=== PATIENT | male | born 1950 | race Caucasian/White ===

== ENCOUNTER 2019-05-22 | Day surgery (SDC) | payer OTHER, SELFPAY | END 2019-05-22 23:00 | disposition home or self-care (01) | LOC: GILAB 12-31 13:27 | PROVIDERS: Family Provider Internal Medicine; Visit Provider Surgery | DX: Z53.9 Procedure and treatment not carried out, unspecified reason (principal) | CPT/HCPCS: J2704; J7030 ==

== ENCOUNTER 2021-05-14 15:08 | Inpatient (IN) | payer OTHER, MEDICARE, SELFPAY ==
[2021-05-14] VITALS (7 sets, daily range): BP systolic 137–154; BP diastolic 71–91; PULSE 70–95; RESP 16–39; TEMP 36.7–37.3; O2SAT 86–96
--- NOTE | 2021-05-14 16:04 | ECG_ITS ---
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 Measurements Intervals [place] Rate: 81 P: 43 MN: 167 QRS: 66 QRSD: 79 T: 78 QT: 336 QTc: 391 Interpretive Statements SINUS RHYTHM ST DEVIATION AND MODERATE T-WAVE ABNORMALITY, CONSIDER ANTEROLATERAL ISCHEMIA [-0.1+ mV T-WAVE IN V3-V6] No previous ECG available for comparison Electronically Signed On 05-14-2021 21:56:35 STENCILER by Zack Hodges M.D. [email or web address].[employer]/store/NU/[id number] f
--- NOTE | 2021-05-14 16:05 | XRR_ITS ---
PROCEDURE INFORMATION: Exam: XR Chest Exam date and time: 05/14/2021 4:05 PM Age: 71 years old Clinical indication: Cough and dyspnea and shortness of breath; Patient HX: SOB, low o2; Additional info: Dyspnea/cough TECHNIQUE: Imaging protocol: XR of the chest. Views: 1 view. COMPARISON: MRI Shoulder w/o LEFT* [id number] 01/18/2018 4:23 PM FINDINGS: Lungs: Patchy ground-glass opacities in both lungs. No focal consolidation. Pleural spaces: Unremarkable. No pleural effusion. No pneumothorax. Heart/Mediastinum: Unremarkable. No cardiomegaly. Bones/joints: Unremarkable. XR/XR chest 1V portable [id number] IMPRESSION: 1. Patchy ground-glass opacities, consistent with multilobar pneumonia.
--- NOTE | 2021-05-14 16:14 | ED_ITS ---
HPI - COVID General: Chief Complaint: COVID symptoms Stated Complaint: SOB LOW O2 Time Seen by Provider: 05/14/21 16:03 Triage information: Has fever, cough or shortness of breath . Exposure to COVID + person last 14 days History of Present Illness: HPI Narrative: 71-year-old male presents to the ER via private vehicle complaining of shortness of breath. He was tested earlier this week at the [facility] and was called today and told he was positive he is having increasing shortness of breath patient initially presents on room air is sats 85-86% on 4 L by nasal cannula he is 87 to 88%. While is examining I switch him over to a nonrebreather his sats improved into the upper 90s to 100% on 15 L by nasal cannula on the nonrebreather. He has had anosmia myalgias low-grade fever nonproductive cough he denies any diarrhea. He is not previously been vaccinated. MD complaint: known COVID positive Prior testing date: 05/11/21 COVID 19 common symptoms: positive fever(s), chills, cough, non-productive cough, dyspnea, fatigue, body aches, headache(s), loss of sense of smell and/or taste, throat pain, nasal congestion, nausea, vomiting, diarrhea and chest tightness; negative productive cough COVID 19 other sytmptoms: positive requiring oxygen and respiratory distress Onset (ago): day(s) (8-9) Severity: moderate Treatment prior to arrival: none COVID Results: No Data to Display Review of Systems Const: Reports: fever(s), chills, body aches and fatigue ENMT: Reports: throat pain and nasal congestion Resp: Reports: dyspnea and non-productive cough; Denies: productive cough GI: Reports: nausea, vomiting and diarrhea Neuro: Reports: headache(s) PFSH ED PFSH: Medical History Anemia Arthritis Hemorrhoids History of ankle fracture HTN (hypertension) Hyperlipemia Surgical History Hx of appendectomy Social History Smoking and tobacco status: former smoker Quit status (tobacco): has quit using tobacco Alcohol intake: never Physical Exam Const: ORIENTATION/CONSCIOUSNESS: Yes awake, Yes oriented to person, Yes oriented to place and Yes oriented to time HENMT: COMMON NORMALS: normocephalic, atraumatic, hearing grossly normal bilaterally, external ears normal, EAC's normal and TM's normal bilaterally HEAD & SCALP: normocephalic and atraumatic EXTERNAL EAR: Yes external ears normal EXTERNAL AUDITORY CANAL: EAC's normal TYMPANIC MEMBRANE: TM's normal bilaterally Resp: AUSCULTATION: crackles, wheezes and diminished lung sounds Cardio: COMMON NORMALS: regular rate, regular rhythm and No murmurs present (Cardio) RATE: regular rate RHYTHM: regular rhythm GI: COMMON NORMALS: Soft to palpation and No hepatosplenomegaly present AUSCULTATION: Yes normoactive bowel sounds PALPATION: Yes Soft to palpation, No Tenderness to palpation present (GI), No Guarding due to palpation present (GI) and Yes No hepatosplenomegaly present Extremity: COMMON NORMALS: normal to inspection, capillary refill normal, no clubbing, cyanosis or edema, no calf tenderness and no pedal edema Neuro: SENSORIUM/ORIENTATION: Yes oriented to person, Yes oriented to place and Yes oriented to time Skin: COMMON NORMALS: no rashes or lesions noted GENERAL SKIN EXAM: no rashes or lesions noted Course Vital Signs: Vital signs: Vital Signs Temperature 99.1 F 05/14/21 15:53 Pulse Rate 70 05/14/21 15:53 Respiratory Rate 24 H 05/14/21 17:55 Blood Pressure 145/77 05/14/21 15:53 Pulse Oximetry 96 05/14/21 17:55 MDM - COVID MDM Narrative: Medical decision making narrative: Covid pneumonia with significant high oxygen deficit. Room air oxygen saturation is 89%. He is requiring heated high flow but is maintaining good sats without. We will go and start him on remdesivir dexamethasone discussed the hospitalist orders written labs EKG and imaging reviewed as found in the chart Lab Data: Labs: Lab Results 05/14/21 05/14/21 05/14/21 16:00 16:00 16:00 WBC 10.2 10^3/uL H 10 ^3/uL (4.0-10.0) RBC 5.15 10^6/uL 10^6 /uL (4.1-5.3) Hgb 15.7 g/dL g/dL (11.7-16.6) Hct 47.2 % % (42.0-52.0) MCV 91.7 fl fl (80-94) MCH 30.5 pg pg (28.0-34.0) MCHC 33.3 g/dL g/dL (30.0-36.0) RDW 13.5 % % (12.1-15.1) Plt Count 204 10^3/cmm 10^3 /cmm (130-400) MPV 10.3 fL fL (7.4-10.4) Neut % (Auto) 87.7 % % Lymph % (Auto) 9.4 % % [place] % (Auto) 2.1 % % Eos % (Auto) 0.0 % % Baso % (Auto) 0.2 % % Neut # (Auto) 8.91 10^3/uL H 10 ^3/uL (1.8-7.7) Lymph # (Auto) 1.0 10^3/uL 10^3/ uL (0.8-4.8) [place] # (Auto) 0.2 10^3/uL 10^3/ uL (0.2-0.9) Eos # (Auto) 0.0 10^3/uL 10^3/ uL (0.0-0.8) Baso # (Auto) 0.0 10^3/uL 10^3/ uL (0.0-0.1) Nucleated RBC % (a uto) 0 % % Nucleated RBCs # 0.0 /100WBC /100W BC D-Dimer Specimen Type Sample Site ABG pH ABG pCO2 ABG pO2 ABG HCO3 ABG O2 Saturation ABG Base Excess Chris Test A-a O2 Gradient Hematocrit Hgb O2 Saturation Carboxyhemoglobin Methemoglobin Total Hemoglobin Ionized Calcium O2 Delivery Device FiO2 Lathe Operator Contact Lens ID Sodium 131 mmol/L L mmol /L (136-145) Potassium 4.1 mmol/L mmol/L (3.5-5.1) Chloride 95 mmol/L L mmol/ L (98-107) Carbon Dioxide 21 mmol/L L mmol/ L (22-29) Anion Gap 19.1 H (5-19) BUN 17 mg/dL mg/dL (8-23) Creatinine 1.1 mg/dL mg/dL (0.7-1.2) GFR Calculation Not Reportable Glucose 103 mg/dL mg/dL (65-115) Calculated Osmolal ity 274 mOsm/kg L mOs m/kg (285-295) Lactic Acid 1.7 mmol/L mmol/L (0.5-2.2) Calcium 8.1 mg/dL L mg/dL (8.5-10.5) Total Bilirubin 0.3 mg/dL mg/dL (0.15-1.2) AST 38 U/L U/L (0-40) ALT 17 U/L U/L (0-41) Alkaline Phosphata se 115 IU/L IU/L (40-130) Troponin T Baselin e C-Reactive Protein 366.2 mg/L H mg/L (0.0-4.9) Total Protein 7.7 g/dL g/dL (6.6-8.7) Albumin 3.4 g/dL L g/dL (3.5-5.2) Globulin 4.3 g/dL g/dL (1.3-4.6) 05/14/21 05/14/21 05/14/21 16:00 16:00 16:30 WBC RBC Hgb Hct MCV MCH MCHC RDW Plt Count MPV Neut % (Auto) Lymph % (Auto) [place] % (Auto) Eos % (Auto) Baso % (Auto) Neut # (Auto) Lymph # (Auto) [place] # (Auto) Eos # (Auto) Baso # (Auto) Nucleated RBC % (a uto) Nucleated RBCs # D-Dimer 1.24 ug/mIFEU H u g/mIFEU (0-0.59) Specimen Type Arterial Sample Site Radial, left ABG pH 7.44 (7.35-7.45) ABG pCO2 32.9 mmHg L mmHg (35-45) ABG pO2 70.3 mmHg L mmHg (80.0-100.0) ABG HCO3 22.2 mmol/L mmol/ L (22-26) ABG O2 Saturation 94.9 ABG Base Excess -1.2 mmol/L mmol/ L (-2.0-2.0) Chris Test Pos A-a O2 Gradient 77.2 mmHg H mmHg (5-10) Hematocrit 46.4 % % (42-52) Hgb O2 Saturation 93.4 % L % (95-100) Carboxyhemoglobin 0.4 %THgb %THgb (0.4-20.1) Methemoglobin 1.2 % % (0.4-1.5) Total Hemoglobin 15.2 g/dL g/dL (14-18) Ionized Calcium 1.1 mmol/L mmol/L (1.1-1.4) O2 Delivery Device Nrb FiO2 100.0 % % Lathe Operator Contact Lens ID Amh Sodium 132.0 mmol/L mmol /L (131-143) Potassium 4.2 mmol/L mmol/L (3.5-5.0) Chloride Carbon Dioxide Anion Gap BUN Creatinine GFR Calculation Glucose 104.0 mg/dL mg/dL (70-115) Calculated Osmolal ity Lactic Acid Calcium Total Bilirubin AST ALT Alkaline Phosphata se Troponin T Baselin e 15 ng/L ng/L (0-15) C-Reactive Protein Total Protein Albumin Globulin COVID Results: No Data to Display Discharge Plan Discharge Patient Disposition: Admitted As Inpatient Clinical Impression: COVID-19, Acute respiratory failure with hypoxia Condition: Stable Coding Level of Care Code ED Airport Operations Officer for Chg Fwd Exam Detailed
[2021-05-14 16:32] LABS: Basophils % 0.2 %; Hematocrit 47.2 % (42.0-52.0); Hemoglobin 15.7 g/dL (11.7-16.6); Lymphocytes % 9.4 %; Mean Corpuscular HGB Conc 33.3 g/dL (30.0-36.0); Mean Corpuscular Hemoglobin 30.5 pg (28.0-34.0); Mean Corpuscular Volume 91.7 fl (80-94); Mean Platelet Volume 10.3 fL (7.4-10.4); Monocytes # 0.2 10^3/uL (0.2-0.9); Monocytes % 2.1 %; Neutrophils # 8.91 10^3/uL (1.8-7.7); Neutrophils % 87.7 %; Nucleated Red Blood Cells % 0 %; Platelet Count 204 10^3/cmm (130-400); Red Blood Count 5.15 10^6/uL (4.1-5.3); Red Cell Distribution Width 13.5 % (12.1-15.1); White Blood Count 10.2 10^3/uL (4.0-10.0)
--- NOTE | 2021-05-14 16:40 | PC.PHAR ---
pt states he takes no rx medications-pts [place] med list had no listed medications-pt states he has been taking advil and vit b12 gummies
[2021-05-14 16:42] LABS: ABG PCO2 32.9 mmHg (35-45); ABG PH Result 7.44 (7.35-7.45); Alveolar-Arterial Oxygen Gradi 77.2 mmHg (5-10); Arterial Blood Gas Hematocrit 46.4 % (42-52); Base Excess ABG -1.2 mmol/L (-2.0-2.0); Blood Gas Allen Test Pos; Blood Gas Operator Identificat AMH; Blood Gas Sample Site Radial, left; Blood Gas Sample Type Arterial; Carboxyhemoglobin 0.4 %THgb (0.4-20.1); HCO3 ABG 22.2 mmol/L (22-26); HGB O2 Sat 93.4 % (95-100); Ionized Calcium Level - ABG 1.1 mmol/L (1.1-1.4); Methemoglobin 1.2 % (0.4-1.5); Oxygen Device NRB; Oxygen Saturation ABG 94.9; PO2 ABG 70.3 mmHg (80.0-100.0); Potassium Level - ABG 4.2 mmol/L (3.5-5.0); Total Hemoglobin 15.2 g/dL (14-18)
[2021-05-14 16:51] LABS: Troponin(5th) Baseline 15 ng/L (0-15)
[2021-05-14 16:53] LABS: Alanine Aminotransferase 17 U/L (0-41); Albumin Level 3.4 g/dL (3.5-5.2); Alkaline Phosphatase 115 IU/L (40-130); Anion Gap 19.1 (5-19); Aspartate Amino Transferase 38 U/L (0-40); Blood Urea Nitrogen 17 mg/dL (8-23); Calcium 8.1 mg/dL (8.5-10.5); Carbon Dioxide 21 mmol/L (22-29); Chloride 95 mmol/L (98-107); Globulin 4.3 g/dL (1.3-4.6); Glucose 103 mg/dL (65-115); Osmolality Calculated 274 mOsm/kg (285-295); Potassium 4.1 mmol/L (3.5-5.1); Sodium 131 mmol/L (136-145); Total Bilirubin 0.3 mg/dL (0.15-1.2); Total Protein 7.7 g/dL (6.6-8.7)
[2021-05-14 16:54] LABS: Lactic Sepsis W/Reflex 1.7 mmol/L (0.5-2.2)
[2021-05-14 17:08] LABS: C Reactive Protein 366.2 mg/L (0.0-4.9)
[2021-05-14 17:16] LABS: D Dimer 1.24 ug/mIFEU (0-0.59)
--- NOTE | 2021-05-14 17:21 | PM.HP ---
Providers/Chief Complaint Primary Care Provider: [facility] Chief Complaint: SOB LOW O2 History of Present Illness Bennie Chandra is a 71 year old male who presented to the hospital for worsening shortness of breath. Patient is stating that his symptom started about 10 days ago. Patient is stating that he was experiencing shortness of breath, fatigue, lethargy and fever at home. He did not experience chest pain or diarrhea. He went to [facility] where Covid test was done it turned back positive today. In the ER he was diagnosed with acute hypoxia he was quickly transitioned to heated high flow at the time my evaluation he was saturating 94% on 35 L, 45%. He was happy to see business objects developer. He did receive remdesivir and steroids in the ER. Chest x-ray consistent with multilobar pneumonia Review of Systems Const: Reports: fever(s), chills, body aches and fatigue Eyes: Denies: change in vision ENMT: Denies: throat pain Card: Denies: chest pain Resp: Reports: dyspnea and non-productive cough GI: Denies: abdominal pain : Denies: flank pain Musc: Denies: neck pain Skin/Breast: Denies: rash Neuro: Denies: headache(s) Psych: Reports: anxiety Endo: Denies: polyuria Navid/Lymph: Denies: easy bruising All/Imm: Denies: urticaria Medications/Allergies Home Medications Medication Instructions Recorded Confirmed Last Taken Type Vitamin B-12 Gummies 1 tab PO DAILY 05/14/21 05/14/21 Unknown History ibuprofen [Advil] 600 mg PO Q6H PRN 05/14/21 05/14/21 05/14/21 History Allergies Allergy/AdvReac Type Severity Reaction Status Date / Time No Known Allergies Allergy Verified 05/14/21 16:38 PFSH Acute PFSH: Medical History Anemia Arthritis Hemorrhoids History of ankle fracture HTN (hypertension) Hyperlipemia Surgical History Hx of appendectomy Family History (Updated 05/14/21 @ 20:04 by Coby Spears MD) Other Diabetes Social History Smoking and tobacco status: former smoker Quit status (tobacco): has quit using tobacco Alcohol intake: never Vitals/I&O/Wt Last Vital Signs Temp 99.1 F 05/14/21 15:53 Pulse 70 05/14/21 15:53 Resp 22 H 05/14/21 16:42 BP 145/77 05/14/21 15:53 Pulse Ox 95 05/14/21 16:42 Weight last 48 hrs Weight 90.718 kg Physical Exam Narrative: EXAM NARRATIVE: Patient was resting comfortably Supine position 35 L, 45 to 50% FiO2 heated high flow No audible stridor or wheezing Sinus rhythm Abdomen soft Clinical looks dehydrated No signs of edema EOMI, PERRLA Nonfocal neuro exam No use of respiratory sensory muscles Dry cough Data : 05/14/21 16:00 05/14/21 16:00 A&P Assessment and plan (1) COVID-19: Status: Acute Additional A&P Information Acute hypoxia COVID-19 Heated high flow 35 L, 45 to 50% Start baricitinib, dB and Decadron Check CRP procalcitonin Will obtain CT chest to rule out PE before his transfer upstairs Admit to [facility] Regular diet Full code DVT prophylaxis: Lovenox CRP 366, patient does not have any significant comorbid conditions however he is 71 years of age now for 10 days requiring 35 L 45% FiO2, I am anticipating he will stay more than 2 to 3 days in the hospital, he is not vaccinated Attestations Medical Necessity Statement*: More than 2 midnights anticipated Time Spent in Patient Care: Greater than 35 minutes Coding Level of Care Code Acute Shrimp Peeler for Chg Fwd Diagnoses COVID-19 U07.1
[2021-05-14] MEDS: dexamethasone 10 mg/mL INJ 6 MG IVP (17:51)
[2021-05-14] MEDS: remdesivir 200 MG in sodium chloride 0.9% (100 ml) 60 ML 100 MG IV (17:51)
[2021-05-14 18:27] LABS: Troponin 5 2HR 15.14 ng/L (0-15); Troponin 5 2HR Delta 0.14 ABS# (0-10)
--- NOTE | 2021-05-14 20:04 | CTR_ITS ---
PROCEDURE INFORMATION: Exam: CTA Chest With Contrast Exam date and time: 05/14/2021 8:04 PM Age: 71 years old Clinical indication: Shortness of breath; Patient HX: Covid +, hypoxia; Additional info: Hypoxia covid TECHNIQUE: Imaging protocol: Computed tomographic angiography of the chest with contrast. 3D rendering (Not supervised by radiologist): MIP and/or 3D reconstructed images were created by the technologist. Radiation optimization: All CT scans at this facility use at least one of these dose optimization techniques: automated exposure control; mA and/or kV adjustment per patient size (includes targeted exams where dose is matched to clinical indication); or iterative reconstruction. Contrast material: OMNI 350; Contrast volume: 72 ml; Contrast route: INTRAVENOUS (IV); COMPARISON: CR XR chest 1V portable [id number] 05/14/2021 4:37 PM RADIATION DOSE METRICS: Total DLP (mGy-cm): 528.25 FINDINGS: Pulmonary arteries: No definite filling defects identified within the pulmonary arteries. Evaluation is significantly limited by breathing motion artifact which obscures multiple pulmonary artery segments. Aorta: Unremarkable. No aortic aneurysm. No aortic dissection. Lungs: Multilobar peripheral patchy ground-glass opacities in both lungs. Pleural spaces: Unremarkable. No pneumothorax. No pleural effusion. Heart: Unremarkable. No cardiomegaly. No pericardial effusion. Lymph nodes: Prominent mediastinal and hilar lymph nodes are most likely reactive. Calcified left hilar lymph nodes. Liver: Calcified granulomas in the liver. Gallbladder and bile ducts: Small calcified stones in the gallbladder. No visible wall thickening. Spleen: Calcified granulomas in the spleen. Bones/joints: Unremarkable. No acute fracture. Soft tissues: Unremarkable. CT/CT angio chest PE protcl [id number] IMPRESSION: 1. No definite evidence for pulmonary embolus. Evaluation is limited by significant breathing motion artifact. 2. Multilobar ground-glass opacities, consistent with COVID-19 pneumonia.
[2021-05-14] MEDS: iohexol 350 mg/mL 100 mL Btl IV (20:23)
--- NOTE | 2021-05-14 22:04 | ECG_ITS ---
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 Measurements Intervals [place] Rate: 80 P: 35 [place]: 174 QRS: 41 QRSD: 88 T: 31 QT: 332 QTc: 384 Interpretive Statements SINUS RHYTHM ST DEVIATION AND MODERATE T-WAVE ABNORMALITY, CONSIDER ANTEROLATERAL ISCHEMIA [-0.1+ mV T WAVE IN V3-V6] Compared to ECG 05/14/2021 17:11:59 No significant changes Electronically Signed On 05-15-2021 10:55:16 APPRENTICESHIP REPRESENTATIVE by Zack Hodges M.D. [email or web address].[employer]/store/OM/[id number]/[id number]
[2021-05-14] MEDS: enoxaparin 40 mg/0.4 mL Syringe SUBCUT (22:23)
[2021-05-14 22:38] LABS: Troponin 5 6HR 12.37 ng/L (0-15); Troponin 5 6HR Delta -2.63 ng/L (0-12)
--- NOTE | 2021-05-14 22:59 | PC.RESP ---
pt refused hhf despite education on o2 device, insist on wearing NRB mask
[2021-05-15] VITALS (12 sets, daily range): BP systolic 115–149; BP diastolic 69–83; PULSE 54–81; RESP 16–25; TEMP 36.4–37.3; O2SAT 81–95
--- NOTE | 2021-05-15 03:02 | PC.RESP ---
pt refusing to wear NRB states flow is to high. educated pt on o2 need and use, resistant to learning. Placed pt on 11 lm highflow nc patient says he will try it, but if he does not like it he will take it off and refuse to wear o2. RN notified
--- NOTE | 2021-05-15 03:14 | PC.NURSE ---
notified phys of pt noncompliance with recommended oxygen supplementation by respiratory therapies. Refusing HHF and non rebreather. States he will wear regular highflow for now but will take it off if uncomfortable regardless of his oxygen saturation.
[2021-05-15 05:04] LABS: ABG PCO2 34.6 mmHg (35-45); ABG PH Result 7.44 (7.35-7.45); Arterial Blood Gas Hematocrit 47.1 % (42-52); Base Excess ABG 0.1 mmol/L (-2.0-2.0); Blood Gas Allen Test Pos; Blood Gas Operator Identificat JB; Blood Gas Sample Site Radial, right; Blood Gas Sample Type Arterial; HCO3 ABG 23.7 mmol/L (22-26); Oxygen Device NC; PO2 ABG 74.8 mmHg (80.0-100.0)
[2021-05-15 06:30] LABS: Basophils % 0.1 %; Hematocrit 42.5 % (42.0-52.0); Lymphocytes # 0.9 10^3/uL (0.8-4.8); Mean Corpuscular HGB Conc 32.9 g/dL (30.0-36.0); Mean Corpuscular Hemoglobin 29.9 pg (28.0-34.0); Mean Corpuscular Volume 90.6 fl (80-94); Mean Platelet Volume 10.1 fL (7.4-10.4); Monocytes # 0.2 10^3/uL (0.2-0.9); Monocytes % 2.3 %; Neutrophils # 7.02 10^3/uL (1.8-7.7); Nucleated Red Blood Cells % 0 %; Platelet Count 191 10^3/cmm (130-400); Red Blood Count 4.69 10^6/uL (4.1-5.3); Red Cell Distribution Width 13.5 % (12.1-15.1); White Blood Count 8.2 10^3/uL (4.0-10.0)
[2021-05-15 06:38] LABS: D Dimer 1.14 ug/mIFEU (0-0.59)
[2021-05-15 06:48] LABS: Anion Gap 17.8 (5-19); Blood Urea Nitrogen 18 mg/dL (8-23); C Reactive Protein 331.1 mg/L (0.0-4.9); Carbon Dioxide 22 mmol/L (22-29); Chloride 97 mmol/L (98-107); Creatinine Clr Calc Pharmacy 95.9378; Glucose 116 mg/dL (65-115); Osmolality Calculated 277 mOsm/kg (285-295); Potassium 4.8 mmol/L (3.5-5.1); Sodium 132 mmol/L (136-145)
[2021-05-15 07:03] LABS: Lactate Dehydrogenase 464 U/L (135-225)
--- NOTE | 2021-05-15 09:44 | P.PN_ITS ---
Subjective Subjective: Interval history: This morning patient was saturating 90% on 11 L high flow nasal cannula He was fatigued and lethargic no overnight events He cannot prone himself He is adamant that he wants to leave the hospital I told him it has to be AGAINST MEDICAL ADVICE and then he stated that he has oxygen tanks in his shop and would like to go home I did take my time to explain him why we are keeping him in the hospital and why medications are important at this point and he could get worse if not treated adequately Vitals/I&O/Wt Last Vital Signs Temp 98.6 F 05/15/21 07:30 Pulse 75 05/15/21 08:53 Resp 16 05/15/21 08:53 BP 126/72 05/15/21 07:30 Pulse Ox 90 05/15/21 08:53 05/14/21 05/15/21 05/15/21 22:59 06:59 14:59 Intake Total 60 / 60 480 / 540 Balance 60 / 60 480 / 540 Weight last 48 hrs Weight 90.718 kg Physical Exam Narrative: EXAM NARRATIVE: Patient was sleeping right lateral position 11 L nasal cannula Rhonchi Abdomen soft Clinically euvolemic Breakfast at the bedside No use of respiratory sensory muscles No conversational dyspnea No signs of edema EOMI, PERRLA Awake and alert Data : 05/15/21 06:15 05/15/21 06:15 A&P Assessment and plan (1) Hypoxia: Status: Acute (2) COVID-19: Status: Acute Additional A&P Information Acute hypoxia COVID-19 Currently on 11 L high flow nasal cannula PaO2 74 Continue IV steroids, Decadron and baricitinib Patient is not ready to be discharged Did discuss with him the importance of getting treatment in the hospital for COVID-19 infection and further monitoring to see how much oxygen he would require at the time of discharge, he might change his decision and stay over the weekend Discharge planners were notified as well I will feel comfortable sending him home if he is O2 saturation is 90 to 92% on 4- 5 L Full code Regular diet Attestations Medical Necessity Statement*: Continue medical management Time Spent in Patient Care: 16 - 35 minutes Coding Level of Care Code Acute Dance Hall Hostess for Brock Barrera Diagnoses Hypoxia R09.02 COVID-19 U07.1
[2021-05-15] MEDS: acetaminophen 325 mg Tablet 650 MG PO ×2 (10:45→17:22)
[2021-05-15] MEDS: dexamethasone 10 mg/mL INJ 6 MG IVP (13:51)
[2021-05-15] MEDS: remdesivir 100 MG in sodium chloride 0.9% (100 ml) 100 ML IV (17:24)
[2021-05-15] MEDS: enoxaparin 40 mg/0.4 mL Syringe SUBCUT (21:44)
[2021-05-16] VITALS (18 sets, daily range): BP systolic 105–132; BP diastolic 64–76; PULSE 59–91; RESP 16–28; TEMP 36.4–37.3; O2SAT 82–91
[2021-05-16] MEDS: ipratropium-albuterol 3 mL Neb INHALATION ×2 (04:00→08:45)
[2021-05-16 04:22] LABS: ABG PCO2 37.9 mmHg (35-45); ABG PH Result 7.44 (7.35-7.45); Base Excess ABG 1.4 mmol/L (-2.0-2.0); Blood Gas Allen Test Pos; Blood Gas Operator Identificat glc; Blood Gas Sample Site Radial, left; Blood Gas Sample Type Arterial; HCO3 ABG 25.5 mmol/L (22-26); Oxygen Device NC; PO2 ABG 64.2 mmHg (80.0-100.0)
[2021-05-16] MEDS: acetaminophen 325 mg Tablet 650 MG PO ×3 (05:35→19:05)
[2021-05-16 06:48] LABS: Basophils % 0.1 %; Hematocrit 47.2 % (42.0-52.0); Hemoglobin 15.6 g/dL (11.7-16.6); Lymphocytes # 1.1 10^3/uL (0.8-4.8); Lymphocytes % 8.5 %; Mean Corpuscular HGB Conc 33.1 g/dL (30.0-36.0); Mean Corpuscular Volume 93.7 fl (80-94); Mean Platelet Volume 10.5 fL (7.4-10.4); Monocytes # 0.4 10^3/uL (0.2-0.9); Monocytes % 2.9 %; Neutrophils # 10.96 10^3/uL (1.8-7.7); Neutrophils % 87.5 %; Nucleated Red Blood Cells % 0 %; Platelet Count 235 10^3/cmm (130-400); Red Blood Count 5.04 10^6/uL (4.1-5.3); Red Cell Distribution Width 13.6 % (12.1-15.1); White Blood Count 12.5 10^3/uL (4.0-10.0)
[2021-05-16 07:31] LABS: Blood Urea Nitrogen 23 mg/dL (8-23); Calcium 8.3 mg/dL (8.5-10.5); Carbon Dioxide 20 mmol/L (22-29); Chloride 97 mmol/L (98-107); Creatinine Clr Calc Pharmacy 95.9378; Glucose 149 mg/dL (65-115); Magnesium 2.3 mg/dL (1.7-2.3); Osmolality Calculated 284 mOsm/kg (285-295); Sodium 134 mmol/L (136-145)
[2021-05-16 07:49] LABS: Anion Gap 21.8 (5-19); Lactate Dehydrogenase 596 U/L (135-225); Potassium 4.8 mmol/L (3.5-5.1)
[2021-05-16] MEDS: sennosides-docusate Tablet 1 TAB PO (09:24)
--- NOTE | 2021-05-16 09:31 | PC.NURSE ---
O2 Started my assessment on pt. Pt was sat )O2 at 84 on High flow. When I explained to him that resp. therapy would need to turn it up , He wanted me not to tell. I explained to him that it was important that he get his oxygen up higher. He said he had them to turn it down. I also explained to him that it was important to sit up in chair and not be in bed all day. Pt is refusing guidance.
--- NOTE | 2021-05-16 11:26 | P.PN_ITS ---
Subjective Subjective: Interval history: Patient overnight required heated high flow currently on 80% 35 L which have increased to 40 L this morning he was saturating 90% He is not able to sleep on himself because of back pain No conversational dyspnea He still adamant that he wants to leave the hospital over the weekend , After speaking with his yesterday he decided to stay Vitals/I&O/Wt Last Vital Signs Temp 97.6 F 05/16/21 11:25 Pulse 82 05/16/21 11:25 Resp 18 05/16/21 11:25 BP 122/76 05/16/21 11:25 Pulse Ox 89 L 05/16/21 11:25 05/15/21 05/16/21 05/16/21 22:59 06:59 14:59 Intake Total 460 / 460 500 / 960 240 / 240 Balance 460 / 460 500 / 960 240 / 240 Weight last 48 hrs Weight 90.718 kg Physical Exam Narrative: EXAM NARRATIVE: Patient is in supine position Fatigue hematologic Dehydrated Heated high flow 80% 40 L No acute respiratory distress No conversational dyspnea Patient experiencing dry cough Soft abdomen Nonfocal neuro exam No audible stridor or wheezing Data : 05/16/21 06:10 05/16/21 06:10 A&P Assessment and plan (1) Hypoxia: Status: Acute (2) COVID-19: Status: Acute Additional A&P Information COVID-19 Hypoxia is worsening Currently on 80% FiO2 heated high flow [address] chest ruled out pulmonary embolism admission Currently on remdesivir, steroids and baricitinib Full code Patient is endorsing loss of appetite No active diarrhea Afebrile Anxious to leave the hospital DVT prophylaxis: Lovenox Patient is unable to perform himself because of his back pain, I will add empirical antibiotic coverage, monitor procalcitonin, LDH Attestations Medical Necessity Statement*: Patient will need at least need 4-5 days treatment Time Spent in Patient Care: 16 - 35 minutes Coding Level of Care Code Acute Industrial Chemistry Teacher for Brock Barrera Diagnoses Hypoxia R09.02 COVID-19 U07.1
[2021-05-16] MEDS: dexamethasone 10 mg/mL INJ 6 MG IVP (12:45)
--- NOTE | 2021-05-16 14:37 | ECG_ITS ---
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 Measurements Intervals [place] Rate: 70 P: 35 [place]: 164 QRS: 39 QRSD: 86 T: 33 QT: 376 QTc: 407 Interpretive Statements SINUS RHYTHM ST DEVIATION AND MODERATE T-WAVE ABNORMALITY, CONSIDER ANTERIOR ISCHEMIA [-0.1+ mV T WAVE IN V3/V4] Compared to ECG 05/14/2021 22:46:18 No significant changes Electronically Signed On 05-17-2021 20:15:27 MASON APPRENTICE by Arthur Catalan M.D. [email or web address].[employer]/store/OM/[id number]/[id number]
[2021-05-16] MEDS: ketorolac 30 mg/mL INJ IM ×2 (15:21→21:25)
[2021-05-16 16:35] LABS: Troponin T (5th) Once 9 ng/L (0-15)
[2021-05-16] MEDS: remdesivir 100 MG in sodium chloride 0.9% (100 ml) 100 ML IV (17:56)
[2021-05-16] MEDS: enoxaparin 40 mg/0.4 mL Syringe SUBCUT (21:24)
[2021-05-17] VITALS (12 sets, daily range): BP systolic 123–147; BP diastolic 66–86; PULSE 51–90; RESP 16–24; TEMP 36.4–36.8; O2SAT 58–98
[2021-05-17] MEDS: acetaminophen 325 mg Tablet 650 MG PO ×4 (00:54→22:04)
[2021-05-17 04:56] LABS: ABG PCO2 37.8 mmHg (35-45); ABG PH Result 7.44 (7.35-7.45); Arterial Blood Gas Hematocrit 43.9 % (42-52); Base Excess ABG 1.6 mmol/L (-2.0-2.0); Blood Gas Allen Test Pos; Blood Gas Sample Site Radial, left; Blood Gas Sample Type Arterial; HCO3 ABG 25.7 mmol/L (22-26); Oxygen Device NC; PO2 ABG 55.4 mmHg (80.0-100.0)
[2021-05-17] MEDS: levoFLOXacin 750 mg Tablet PO (05:48)
[2021-05-17 06:07] LABS: Anion Gap 15.8 (5-19); Blood Urea Nitrogen 34 mg/dL (8-23); C Reactive Protein 95.7 mg/L (0.0-4.9); Carbon Dioxide 24 mmol/L (22-29); Chloride 98 mmol/L (98-107); Glucose 109 mg/dL (65-115); Osmolality Calculated 284 mOsm/kg (285-295); Potassium 4.8 mmol/L (3.5-5.1); Sodium 133 mmol/L (136-145)
[2021-05-17 06:13] LABS: Procalcitonin 0.13 ng/mL (0-0.5)
--- NOTE | 2021-05-17 07:27 | XRR_ITS ---
PROCEDURE INFORMATION: Exam: XR Chest Exam date and time: 05/17/2021 7:27 AM Age: 71 years old Clinical indication: Shortness of breath; Additional info: Covid hypoxia TECHNIQUE: Imaging protocol: XR of the chest. Views: 1 view. COMPARISON: CR XR chest 1V portable [id number] 05/14/2021 4:37 PM FINDINGS: Lungs: There are extensive bilateral pulmonary infiltrates which have worsened since previous study. Pleural spaces: Unremarkable. No pleural effusion. No pneumothorax. Heart/Mediastinum: Unremarkable. No cardiomegaly. Bones/joints: Unremarkable. XR/XR chest 1V portable [id number] IMPRESSION: Worsening bilateral pulmonary infiltrates consistent with viral pneumonia.
[2021-05-17] MEDS: zinc gluconate 50 mg Tablet PO (09:05)
[2021-05-17] MEDS: ascorbic acid 500 mg Tablet PO ×2 (09:05→17:42)
[2021-05-17] MEDS: sennosides-docusate Tablet 1 TAB PO (09:05)
--- NOTE | 2021-05-17 09:31 | PC.SOCIAL ---
IMM update IMM updated with patient. Verbalized an understanding. Initialled, dated, timed, and placed in chart.
--- NOTE | 2021-05-17 11:13 | P.PN_ITS ---
Subjective Subjective: Interval history: Currently patient is on 70% FiO2 35 L, PaO2 55, patient is comfortable however he is reluctant to increase the flow above 40%, he states that he cannot tolerate When I saw him he was eating breakfast Manager Contract at the bedside Eating breakfast, had 1 bowel movement, no active chest pain or shortness of breath Yesterday he was complaining of chest pain troponin IX, EKG T wave inversion V2 and V3 no recurrence of chest pain overnight today I will do serial troponin and EKG, most likely hypoxia related T wave changes Respiratory showed worsening bilateral infiltrates Vitals/I&O/Wt Last Vital Signs Temp 97.9 F 05/17/21 04:00 Pulse 51 L 05/17/21 08:41 Resp 16 05/17/21 08:41 BP 144/83 05/17/21 08:41 Pulse Ox 91 05/17/21 08:41 05/16/21 05/17/21 05/17/21 22:59 06:59 14:59 Intake Total 340 / 820 580 / 1400 360 / 360 Balance 340 / 820 580 / 1400 360 / 360 Physical Exam Narrative: EXAM NARRATIVE: Patient was resting comfortably with heated high flow 70% 35 L Eating breakfast No active chest pain or shortness of breath Rhonchi crepitation noted all over his lung on posterior auscultation No abdominal pain Nonfocal neuro exam EOMI, PERRLA Data : 05/16/21 06:10 05/17/21 05:19 A&P Assessment and plan (1) Hypoxia: Status: Acute (2) COVID-19: Status: Acute Additional A&P Information Acute hypoxia COVID-19 Persistent hypoxia Severe ARDS Worsening infiltrate on chest x-ray Clinically patient seems comfortable however his hypoxia is worsening Baricitinib, remdesivir and IV Decadron regimen to be continued Seems to be in good spirits We will do serial troponin and EKG I do believe given versions are related to hypoxia CTA ruled out pulmonary embolism I will continue Levaquin empirical regimen for now Full code Regular diet DVT prophylaxis Lovenox Attestations Medical Necessity Statement*: Continue management Time Spent in Patient Care: 16 - 35 minutes Coding Level of Care Code Acute Licensed Sales Producer for Kayling Fwd Diagnoses Hypoxia R09.02 COVID-19 U07.1
--- NOTE | 2021-05-17 11:24 | ECG_ITS ---
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 Measurements Intervals [place] Rate: 50 P: 25 LA: 195 QRS: 8 QRSD: 84 T: 34 QT: 421 QTc: 386 Interpretive Statements SINUS BRADYCARDIA MODERATE T-WAVE ABNORMALITY, CONSIDER ANTERIOR ISCHEMIA [-0.1+ mV T WAVE IN V3/V4] Compared to ECG 05/16/2021 15:14:45 Sinus rhythm no longer present T-wave abnormality still present Possible ischemia still present Electronically Signed On 05-17-2021 20:21:07 SHOE FITTER by Arthur Catalan M.D. [id number]
[2021-05-17] MEDS: dexamethasone 10 mg/mL INJ 6 MG IVP (12:42)
--- NOTE | 2021-05-17 13:24 | ECG_ITS ---
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 Measurements Intervals [place] Rate: 61 P: [place]: QRS: 29 QRSD: 90 T: 26 QT: 404 QTc: 407 Interpretive Statements Normal sinus rhythm ST DEVIATION AND MODERATE T-WAVE ABNORMALITY, CONSIDER ANTERIOR ISCHEMIA [-0.1+ mV T WAVE IN V3/V4] Compared to ECG 05/17/2021 12:25:09 Sinus bradycardia no longer present T-wave abnormality still present Possible ischemia still present Electronically Signed On 05-17-2021 20:23:09 FARM EQUIPMENT OPERATOR by Arthur Catalan M.D. [id number]
[2021-05-17 13:57] LABS: Troponin(5th) Baseline 7 ng/L (0-15)
--- NOTE | 2021-05-17 17:24 | ECG_ITS ---
[facility] Test Date: 2021-05-17 Pat Name: Bennie Chandra Department: Room: 261 Gender: Male Community Health Advocate: : 1950 Requested By: Coby Spears Order Number: [id number] Stormy MD: Arthur Catalan M.D. Measurements Intervals [place] Rate: 56 P: 24 WI: 155 QRS: 13 QRSD: 83 T: 48 QT: 411 QTc: 400 Interpretive Statements SINUS BRADYCARDIA NONSPECIFIC ST & T-WAVE ABNORMALITY Compared to ECG 05/17/2021 15:24:09 Atrial flutter no longer present Possible ischemia no longer present T-wave abnormality still present Electronically Signed On 05-17-2021 20:24:42 PUMP SERVICER SUPERVISOR by Arthur Catalan M.D. [id number]
[2021-05-17] MEDS: remdesivir 100 MG in sodium chloride 0.9% (100 ml) 100 ML IV (17:42)
[2021-05-17 19:50] LABS: Troponin 5 6HR 6.73 ng/L (0-15)
[2021-05-17 19:51] LABS: Troponin 5 6HR Delta -0.27 ng/L (0-12)
[2021-05-17 21:16] LABS: Glucose Point of Care 200 mg/dL (70-110)
[2021-05-17] MEDS: enoxaparin 40 mg/0.4 mL Syringe SUBCUT (22:04)
[2021-05-18] VITALS (9 sets, daily range): BP systolic 112–162; BP diastolic 61–85; PULSE 51–67; RESP 18–21; TEMP 36.5–36.8; O2SAT 90–94
[2021-05-18 04:00] LABS: ABG PCO2 37.5 mmHg (35-45); ABG PH Result 7.45 (7.35-7.45); Arterial Blood Gas Hematocrit 45.1 % (42-52); Base Excess ABG 1.8 mmol/L (-2.0-2.0); Blood Gas Allen Test Pos; Blood Gas Sample Site Radial, right; Blood Gas Sample Type Arterial; HCO3 ABG 25.8 mmol/L (22-26); Oxygen Device HAG; PO2 ABG 59.1 mmHg (80.0-100.0)
[2021-05-18] MEDS: levoFLOXacin 750 mg Tablet PO (05:02)
[2021-05-18] MEDS: acetaminophen 325 mg Tablet 650 MG PO (05:03)
[2021-05-18 07:21] LABS: Basophils % 0.2 %; Hematocrit 45.9 % (42.0-52.0); Hemoglobin 15.2 g/dL (11.7-16.6); Lymphocytes # 1.3 10^3/uL (0.8-4.8); Lymphocytes % 8.7 %; Mean Corpuscular HGB Conc 33.1 g/dL (30.0-36.0); Mean Corpuscular Hemoglobin 30.2 pg (28.0-34.0); Mean Corpuscular Volume 91.1 fl (80-94); Mean Platelet Volume 9.7 fL (7.4-10.4); Monocytes # 0.9 10^3/uL (0.2-0.9); Monocytes % 6.2 %; Neutrophils # 11.71 10^3/uL (1.8-7.7); Neutrophils % 79.9 %; Nucleated Red Blood Cells % 0 %; Platelet Count 392 10^3/cmm (130-400); Red Blood Count 5.04 10^6/uL (4.1-5.3); Red Cell Distribution Width 13.5 % (12.1-15.1); White Blood Count 14.7 10^3/uL (4.0-10.0)
[2021-05-18 07:32] LABS: D Dimer 1.29 ug/mIFEU (0-0.59)
[2021-05-18 07:42] LABS: Blood Urea Nitrogen 26 mg/dL (8-23); Carbon Dioxide 23 mmol/L (22-29); Chloride 103 mmol/L (98-107); Creatinine Clr Calc Pharmacy 95.9378; Glucose 116 mg/dL (65-115); Osmolality Calculated 288 mOsm/kg (285-295); Sodium 136 mmol/L (136-145)
[2021-05-18 07:43] LABS: Anion Gap 15.3 (5-19); Potassium 5.3 mmol/L (3.5-5.1)
[2021-05-18 07:51] LABS: Procalcitonin 0.06 ng/mL (0-0.5)
[2021-05-18 07:59] LABS: Lactate Dehydrogenase 613 U/L (135-225)
[2021-05-18] MEDS: ascorbic acid 500 mg Tablet PO ×2 (08:32→18:02)
[2021-05-18] MEDS: zinc gluconate 50 mg Tablet PO (08:32)
--- NOTE | 2021-05-18 09:18 | PM.PN ---
Subjective Subjective: Interval history: Bennie reports he feels little bit better today. Less short of breath. Medications: Reviewed: Yes Vitals/I&O/Wt Last Vital Signs Temp 97.7 F 05/18/21 07:35 Pulse 55 L 05/18/21 07:35 Resp 18 05/18/21 07:35 BP 136/77 05/18/21 07:35 Pulse Ox 93 05/18/21 07:35 05/17/21 05/18/21 05/18/21 22:59 06:59 14:59 Intake Total 340 / 940 Output Total 600 / 600 100 / 700 Balance -260 / 340 -100 / 240 Physical Exam Narrative: EXAM NARRATIVE: General exam no distress Neck is supple Cardiovascular regular rhythm Lungs a few dry crackles bilaterally Abdomen soft. No obvious organomegaly Extremities no cyanosis clubbing or edema Data : 05/18/21 06:39 05/18/21 06:39 A&P Assessment and plan (1) Acute respiratory failure with hypoxia: Still requiring 70% FiO2 by high flow oxygen at 35 L This is secondary to COVID-19 pneumonia Check BNP Status: Acute (2) COVID-19: Continue remdesivir Continue dexamethasone Continue baricitinib Pulmonary toilet Incentive spirometry, Acapella Check MRSA PCR Continue Levaquin empirically Cultures negative to date Procalcitonin negative CTA negative for pulmonary embolism Status: Acute Additional A&P Information Mild elevation in potassium. Recheck tomorrow. 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
[2021-05-18 09:21] LABS: NT Pro B Type Natriuretic Pept 469 pg/mL (0-125)
--- NOTE | 2021-05-18 10:41 | PC.CHAP ---
Pastoral Care Encounter/Spiritual Assessment Type of Contact [] Declined mold cooler visit [] Patient/Family/Request visit [] Outpatient visit [] Follow-up visit [] Physician referral [] Code/Alert [x] Routine visit [] Staff referral [] Actively dying [] Patient sleeping [] Family support [] [] Out of room [] Palliative care [] [] Receiving care in room [] Pre-surgical visit [] Trauma [] Long length of stay [] ICU visit [] Other: Relational/Emotional Strength [x] Patient feels connected with others/family/visitors/staff [] Distress [] Loneliness/isolation [] Abandonment Spirituality of Patient [x] Person of Karla [x] Attends Christianity of their Karla [x] Believes in Prayer [x] Reads Bible or Moravian materials [] There are Spiritual issues to be addressed Emergency Medical Technician/Driver Interventions [x] Prayer [x] Active listening [x] Non-anxious presence [x] Spiritual/emotional support [] Crisis/trauma care [] Spiritual counseling [] Bereavement support [] Provided bereavement packet [] Provided Bible/devotional materials [] Provided toy/stuffed animal, coloring book to patient or family member [] Provided Communion [] Anointing/[place] [] Salvation [] Completed spiritual assessment [] Other: Impact on Illness or Injury [] Angry [] Fearful [] Anxious [] Often cries [] Exhaustion [] Unable to work [] Unable to attend shinto [] Unable to walk/stand [] Unable to read [] Unable to drive [] Unable to eat/drink [] Unable to sleep [] Unable to be with family [] Patient intubated [] Other: Summary Time spent with patient 20 min
[2021-05-18] MEDS: dexamethasone 10 mg/mL INJ 6 MG IVP (13:05)
[2021-05-18] MEDS: remdesivir 100 MG in sodium chloride 0.9% (100 ml) 100 ML IV (18:02)
[2021-05-18] MEDS: ondansetron 2 mg/ML SDV 2 mL 4 MG IVP (19:52)
[2021-05-18] MEDS: enoxaparin 40 mg/0.4 mL Syringe SUBCUT (22:54)
[2021-05-19] VITALS (54 sets, daily range): BP systolic 68–158; BP diastolic 49–112; PULSE 54–138; RESP 12–22; TEMP 36.4–37.9; O2SAT 70–97
[2021-05-19 05:01] LABS: Basophils # 0.1 10^3/uL (0.0-0.1); Basophils % 0.5 %; Hematocrit 51.4 % (42.0-52.0); Hemoglobin 16.5 g/dL (11.7-16.6); Lymphocytes # 1.4 10^3/uL (0.8-4.8); Lymphocytes % 7.3 %; Mean Corpuscular HGB Conc 32.1 g/dL (30.0-36.0); Mean Corpuscular Hemoglobin 30.4 pg (28.0-34.0); Mean Corpuscular Volume 94.7 fl (80-94); Mean Platelet Volume 9.8 fL (7.4-10.4); Monocytes # 0.9 10^3/uL (0.2-0.9); Monocytes % 4.7 %; Nucleated Red Blood Cells % 0 %; Platelet Count 419 10^3/cmm (130-400); Red Blood Count 5.43 10^6/uL (4.1-5.3); Red Cell Distribution Width 13.6 % (12.1-15.1); White Blood Count 19.4 10^3/uL (4.0-10.0)
[2021-05-19 05:24] LABS: Alanine Aminotransferase 53 U/L (0-41); Alkaline Phosphatase 142 IU/L (40-130); Aspartate Amino Transferase 51 U/L (0-40); Blood Urea Nitrogen 27 mg/dL (8-23); Carbon Dioxide 24 mmol/L (22-29); Chloride 99 mmol/L (98-107); Globulin 4.2 g/dL (1.3-4.6); Glucose 109 mg/dL (65-115); Magnesium 2.3 mg/dL (1.7-2.3); Osmolality Calculated 286 mOsm/kg (285-295); Sodium 135 mmol/L (136-145); Total Bilirubin 0.4 mg/dL (0.15-1.2); Total Protein 7.2 g/dL (6.6-8.7)
[2021-05-19] MEDS: levoFLOXacin 750 mg Tablet PO (05:42)
[2021-05-19 07:43] LABS: Slide Review Slide Review Perform
[2021-05-19] MEDS: ipratropium-albuterol 3 mL Neb INHALATION ×3 (08:40→20:05)
[2021-05-19] MEDS: FUROsemide 10 mg/mL SDV 2mL 20 MG IVP (09:20)
--- NOTE | 2021-05-19 09:21 | PC.SOCIAL ---
IMM Update: pg 2 of IMM updated and reviewed w/ patient. Copy provided.
[2021-05-19 09:24] LABS: Procalcitonin 0.04 ng/mL (0-0.5)
[2021-05-19 09:44] LABS: D Dimer 2.76 ug/mIFEU (0-0.59)
[2021-05-19] MEDS: dexmedeTOMIDine 0.9 % NaCL 400 MCG/100 ML PREMIX IV (09:55)
[2021-05-19] MEDS: etomidate 20 ML 1 MG (10:05)
[2021-05-19] MEDS: rocuronium 10 mg/mL INJ 5mL 50 MG (10:05)
[2021-05-19] MEDS: propofol 1,000 MG/100 ML INJ 5.44 MG IV (10:15)
--- NOTE | 2021-05-19 10:28 | XRR_ITS ---
PROCEDURE INFORMATION: Exam: XR Chest Exam date and time: 05/19/2021 10:28 AM Age: 71 years old Clinical indication: Device placement; Ng tube; Additional info: Et tube TECHNIQUE: Imaging protocol: XR of the chest. Views: 1 view. Total images: 1 COMPARISON: CR (CHEST, ) 05/17/2021 8:45 AM FINDINGS: Tubes, catheters and devices: An endotracheal tube is present, terminating above the rell by 3.5 cm. Enteric tube with its tip in the gastric antrum. Lungs: Bilateral pulmonary opacities are again noted and have shown interval worsening from the prior exam. Pleural spaces: Unremarkable. No pleural effusion. No pneumothorax. Heart/Mediastinum: Heart size is stable when compared to the prior exam. Bones/joints: Osseous structures are unchanged from the prior exam. XR/XR chest 1V portable [id number] IMPRESSION: 1. Enteric tube with its tip in the gastric antrum. 2. Bilateral pulmonary opacities are again noted and have shown interval worsening from the prior exam.
[2021-05-19] MEDS: vancomycin 1,250 MG/250 ML PIGGYBACK 200 MG IV ×2 (11:00→21:11)
[2021-05-19] MEDS: midazolam 1 mg/mL INJ 2 mL 2 MG (12:20)
--- NOTE | 2021-05-19 12:24 | XR_ITS ---
WS: [id number] PORTABLE CHEST HISTORY: Decompensating. COMPARISON: 05/19/2021 at 10:38 AM. Endotracheal nasogastric tubes are in good position. Continued bilateral airspace disease and interstitial/reticular thickening. No progression. No pleura l effusion or pneumothorax. Cardiac size: Normal. Mediastinum/Aorta: Mild atherosclerosis aorta. No osseous abnormality seen. XR/XR chest 1V portable [id number] IMPRESSION: 1. Nasogastric and endotracheal tubes remain in good position. 2. Bilateral interstitial opacifications are stable. 3. No pneumothorax.
[2021-05-19] MEDS: LORazepam 2 mg/mL INJ 1 mL (12:25)
[2021-05-19 12:28] LABS: ABG PCO2 49.4 mmHg (35-45); Alveolar-Arterial Oxygen Gradi 79.8 mmHg (5-10); Arterial Blood Gas Hematocrit 54.5 % (42-52); Blood Gas Allen Test Pos; Blood Gas Operator Identificat GD; Blood Gas Sample Site Radial, right; Blood Gas Sample Type Arterial; Blood Gas Tidal Volume 0.45; Carboxyhemoglobin 0.3 %THgb (0.4-20.1); HCO3 ABG 24.1 mmol/L (22-26); HGB O2 Sat 67.9 % (95-100); Ionized Calcium Level - ABG 1.2 mmol/L (1.1-1.4); Methemoglobin 0.7 % (0.4-1.5); Oxygen Device VENT; Oxygen Saturation ABG 68.6; PO2 ABG 38.6 mmHg (80.0-100.0); Potassium Level - ABG 5.2 mmol/L (3.5-5.0); Total Hemoglobin 17.8 g/dL (14-18)
[2021-05-19] MEDS: cisatracurium 100 MG in sodium chloride 0.9% 50 ML IV (12:30)
[2021-05-19] MEDS: dexamethasone 10 mg/mL INJ 6 MG IVP (12:32)
--- NOTE | 2021-05-19 12:38 | CTR_ITS ---
PROCEDURE INFORMATION: Exam: CT Head Without Contrast Exam date and time: 05/19/2021 12:38 PM Age: 71 years old Clinical indication: Other: Seizure, covid+, intubated TECHNIQUE: Imaging protocol: Computed tomography of the head without contrast. Radiation optimization: All CT scans at this facility use at least one of these dose optimization techniques: automated exposure control; mA and/or kV adjustment per patient size (includes targeted exams where dose is matched to clinical indication); or iterative reconstruction. COMPARISON: No relevant prior studies available. RADIATION DOSE METRICS: Total DLP (mGy-cm): 926.92 FINDINGS: Brain: Normal. No hemorrhage. Unremarkable white matter. No mass effect. Cerebral ventricles: No ventriculomegaly. Paranasal sinuses: Visualized sinuses are unremarkable. No fluid levels. Mastoid air cells: Visualized mastoid air cells are well aerated. Bones/joints: Unremarkable. No acute fracture. Soft tissues: Unremarkable. CT/CT head wo con* [id number] IMPRESSION: No acute intracranial abnormality.
--- NOTE | 2021-05-19 12:38 | CTR_ITS ---
PROCEDURE INFORMATION: Exam: CTA Chest With Contrast Exam date and time: 05/19/2021 12:38 PM Age: 71 years old Clinical indication: Other: Hypoxia, intubated; Additional info: Tachypnea, hypoxia TECHNIQUE: Imaging protocol: Computed tomographic angiography of the chest with contrast. 3D rendering (Not supervised by radiologist): MIP and/or 3D reconstructed images were created by the technologist. Radiation optimization: All CT scans at this facility use at least one of these dose optimization techniques: automated exposure control; mA and/or kV adjustment per patient size (includes targeted exams where dose is matched to clinical indication); or iterative reconstruction. Contrast material: VISI 320; Contrast volume: 82 ml; Contrast route: INTRAVENOUS (IV); COMPARISON: CT angio chest PE protcl [id number] 05/14/2021 8:22 PM RADIATION DOSE METRICS: Total DLP (mGy-cm): 597.62 FINDINGS: Tubes, catheters and devices: There is an endotracheal tube with the tip 3.3 cm above the rell. There is an enteric tube with the tip in the descending duodenum. Pulmonary arteries: No filling defects in the pulmonary arteries to suggest pulmonary embolism. Aorta: No evidence for aortic aneurysm. Evaluation for aortic dissection is limited due to the phase of contrast-enhancement. Trachea: Tracheobronchial structures are patent. Lungs: Extensive, bilateral areas of ground-glass opacification in both lungs lungs. The severity of the ground-glass opacification has decreased, however is more diffuse compared with the previous study. Findings are suspicious for atypical pneumonia, including viral organisms. There is also interval development of bilateral lower lobe alveolar airspace disease with air bronchograms and patchy alveolar airspace disease in the right upper lobe, a superimposed bacterial pneumonia cannot be ruled out. Calcified granuloma in the left lower lobe. Pleural spaces: No pneumothorax. No pleural effusion. Heart: Mild atherosclerotic calcification in the coronary arteries. Esophagus: The esophagus is unremarkable. Mediastinal space: No mediastinal hematoma. No pneumomediastinum. Lymph nodes: No lymphadenopathy. Calcified mediastinal and left hilar lymph nodes. Liver: Multiple calcified granulomas in the visualized liver. Gallbladder and bile ducts: Multiple stones in the gallbladder. No dilatation of the visualized bile ducts. No gallbladder wall thickening. Pancreas: The visualized pancreas is unremarkable. No pancreatic ductal dilatation. Spleen: Multiple calcified granulomas in the spleen. Adrenal glands: The right and left adrenal glands are unremarkable. Kidneys and ureters: The visualized right and left kidneys are unremarkable. Bones/joints: Degenerative changes in the spine and shoulders. Soft tissues: No acute abnormality in the extrathoracic soft tissues. CT/CT angio chest PE protcl [id number] IMPRESSION: 1. Extensive, bilateral areas of ground-glass opacification in both lungs lungs. The severity of the ground-glass opacification has decreased, however is more diffuse compared with the previous study. Findings are suspicious for atypical pneumonia, including viral organisms. There is also interval development of bilateral lower lobe alveolar airspace disease with air bronchograms and patchy alveolar airspace disease in the right upper lobe, a superimposed bacterial pneumonia cannot be ruled out. Recommend followup chest imaging to insure resolution of these findings. 2. No evidence for pulmonary embolism. 3. There is an endotracheal tube with the tip 3.3 cm above the rell. 4. There is an enteric tube with the tip in the descending duodenum. 5. Cholelithiasis. 6. Incidental/nonacute findings are listed in the report.
--- NOTE | 2021-05-19 12:49 | P.PN_ITS ---
Subjective Subjective: Interval history: Bennie was more short of breath this morning. The nurse had him on 100% FiO2 per high flow nasal cannula, and a nonrebreather. Arrangements were made to transfer to the ICU. I had a conversation with him as well as his regarding possibility for intubation. He agreed to intubation. He was placed on BiPAP in the interim, to transition to the ICU. In the ICU Dr. Sierra assisted in intubation, with endotracheal tube at 22, first attempt. He had good breath sounds bilaterally and color change. OG was placed. In less than 30 minutes the patient decompensated with decreasing oxygen levels. Ventilator, breath sounds, etc. were checked. It was thought that the endotracheal tube cuff had a leak and endotracheal tube was exchanged by bougie. On replacement it was found that endotracheal tube was in the esophagus. It was removed and the patient was reintubated with an 8 -0 endotracheal tube at 24 cm. Good breath sounds were noted bilaterally and oxygen increased appropriately. X-ray confirmed placement. Patient had stabilized, and further testing was pending. During the interim at approximately 1215 the patient decompensated with tachycardia, what appeared to be potential seizure activity, and low oxygen levels. Versed was given on a verbal order and I arrived shortly after. Ativan was given IV. Stat chest x-ray obtained confirming no pneumothorax or change in endotracheal tube placement. Patient gradually recovered, and is satting around 90% on 100% FiO2 via ventilator currently. CT head noncontrast, and CTA chest have been ordered. Medications: Reviewed: Yes Vitals/I&O/Wt Last Vital Signs Temp 97.6 F 05/19/21 08:00 Pulse 84 05/19/21 08:49 Resp 18 05/19/21 11:00 BP 126/76 05/19/21 08:00 Pulse Ox 93 05/19/21 11:00 05/18/21 05/19/21 05/19/21 22:59 06:59 14:59 Intake Total 340 / 460 100 / 100 Output Total 400 / 400 Balance 340 / 460 -400 / 60 100 / 100 Physical Exam Narrative: EXAM NARRATIVE: General exam is a sedated and animated white male. Neck is supple Cardiovascular regular rate and rhythm, heart rate now approximately 100 Lungs coarse bilaterally Abdomen is soft. Nondistended. Positive bowel sounds demonstrates Combs Extremities no cyanosis clubbing or edema, cap refill approximately 2 seconds. Data : 05/19/21 04:25 05/19/21 04:25 A&P Assessment and plan (1) Acute respiratory failure with hypoxia: He has transitioned to endotracheal intubation, FiO2 of 100%, PEEP of 14 I will obtain a pulmonary consultation Consider increasing PEEP as much as 16 if needed. Sedation with Versed, fentanyl, propofol Paralyzation with Nimbex Consider proning after imaging if patient stabilizes Norepinephrine as needed for hypotension that may occur with sedation Secondary to acute decompensation CTA of chest has been ordered. Dimer was checked this morning and slightly higher than admission Status: Acute (2) COVID-19: Continue remdesivir Continue dexamethasone Has been receiving baricitinib. Will consider conversion to around Aranasep if no obvious bacterial infection. Pulmonary toilet Check MRSA PCR Expand antibiotic coverage to vancomycin and Primaxin. Levaquin will be discontinued Obtain sputum culture Obtain blood culture. Procalcitonin negative CTA negative for pulmonary embolism on admission but will be repeating. Status: Acute Additional A&P Information Seizure-like activity. May be secondary to hypoxia but cannot rule out CHINESE HERBALIST event. Check CT head noncontrast Hypotension expected with sedation, add norepinephrine Mild elevation in potassium. This is improved Full code Lovenox for DVT prophylaxis Prognosis guarded. Discussed in detail with . Attestations Medical Necessity Statement*: Need hospitalization secondary to severe COVID- 19 pneumonia requiring endotracheal intubation Critical Care Time: Critical Care Time (min): 89 Other Attestations: The high probability of a clinically significant, sudden or life threatening deterioration of the patient's [pulmonary, cardiac, neurologic] system(s) required my full and direct attention, intervention and personal management. The critical care time is as shown. This time is in addition to time spent performing any reported procedures but includes the following: [x] Data and vital sign review and interpretation [x] Patient assessment, examination and intervention [x] Documentation [x] Medication orders and management Coding Level of Care Code Acute Behavioral Health Clinician for Brock Barrera Diagnoses Acute respiratory failure with hypoxia J96.01 COVID-19 U07.1
[2021-05-19] MEDS: norepinephrine 8 MG in dextrose 5 % 500 ML 7.62 MG IV (13:06)
[2021-05-19] MEDS: artificial tears Op Oint 3.5 gm 1 APPLIC EYE-BOTH (13:25)
[2021-05-19] MEDS: propofol 1,000 MG/100 ML INJ 27.22 MG IV ×3 (13:25→21:22)
--- NOTE | 2021-05-19 13:51 | PC.NUTR ---
When medically appropriate for Pt to be fed enterally, recommend consideration of Jevity 1.2 starting @10 mls/hr, advancing as tolerated to goal rate of 35mls/hr, with FW flushes of 150 ml Q4H or per MD discretion. See RD assessment for details.
[2021-05-19 14:08] LABS: ABG PCO2 51.6 mmHg (35-45); ABG PH Result 7.28 (7.35-7.45); Arterial Blood Gas Hematocrit 50.8 % (42-52); Base Excess ABG -3.1 mmol/L (-2.0-2.0); Blood Gas Allen Test Pos; Blood Gas Operator Identificat GD; Blood Gas Sample Site Radial, right; Blood Gas Sample Type Arterial; Blood Gas Tidal Volume 0.45; HCO3 ABG 24.4 mmol/L (22-26); Oxygen Device VENT; PO2 ABG 68.1 mmHg (80.0-100.0)
--- NOTE | 2021-05-19 15:57 | PM.EVENT ---
Event Note Event Note: Procedure note. Time of procedure 10:30 AM Procedure: Endotracheal intubation Indication worsening respiratory failure with concern of cuff leak of endotracheal tube, dislodged endotracheal tube. Complications none Blood loss none Procedure: Patient had been intubated shortly before by emergency department physician at 22 cm depth an endotracheal tube. Excellent color change was obtained, and OG placed. Prior to getting an x-ray it was noted the patient started desaturating significantly. Multiple equipment lines were checked, and there was concern of cuff leak. Secondary to this a tube exchange was performed over a bougie. In this controlled setting the oxygen saturation did not go up and it was apparent that the endotracheal tube was in the esophagus. It was removed and a new endotracheal tube, 8-0, was placed using glide scope at 24 cm. This was secured. Capnography demonstrated correct placement as well as visualization of endotracheal tube going through the cords. Patient had good bilateral breath sounds. Chest x-ray was performed demonstrating good placement.
[2021-05-19 17:09] LABS: ABG PCO2 45.5 mmHg (35-45); ABG PH Result 7.33 (7.35-7.45); Alveolar-Arterial Oxygen Gradi 69.2 mmHg (5-10); Arterial Blood Gas Hematocrit 50.2 % (42-52); Base Excess ABG -2.2 mmol/L (-2.0-2.0); Blood Gas Allen Test Pos; Blood Gas Operator Identificat GD; Blood Gas Sample Site Radial, right; Blood Gas Sample Type Arterial; Carboxyhemoglobin < 0.0 %THgb (0.4-20.1); HGB O2 Sat 97.2 % (95-100); Ionized Calcium Level - ABG 1.1 mmol/L (1.1-1.4); Oxygen Device VENT; Potassium Level - ABG 4.8 mmol/L (3.5-5.0); Total Hemoglobin 16.4 g/dL (14-18)
[2021-05-19] MEDS: iohexol 350 mg/mL 100 mL Btl IV (18:22)
--- NOTE | 2021-05-19 19:40 | PC.NURSE ---
1215 Patient's O2 dropped and heart rate increased. Patient's muscles became stiff. Dr. Griffith called. Orders for versed received. 1220 Dr. Griffith at bedside. Orders for Ativan. Patient's O2 and heart rate stabilized. 1330 Reported low blood pressure to Dr. Griffith. Orders for Levophed drip. Orders to take patient to CT when vital signs are stable.
--- NOTE | 2021-05-19 19:41 | PC.NURSE ---
1900 Report received. Assessment completed. VSS. 8.0 ETT, 25cm at lip. Vent setting per RT. Fentanyl, propofol, versed, nimbex and levophed infusing per orders. Bilateral PIV's in place. Lung sounds CTA, diminished in lower lobes. Bilateral wrist restraints in place per orders. Combs cath draining freely to BSD. Will monitor.
--- NOTE | 2021-05-19 20:21 | P.PNCC_ITS ---
Critical Care Event Note The high probability of a clinically significant, sudden or life threatening deterioration of the patient's [] system(s) required my full and direct attention, intervention and personal management. The critical care time is as shown. This time is in addition to time spent performing any reported procedures but includes the following: [x] Data and vital sign review and interpretation [x] Patient assessment, examination and intervention [x] Documentation [x] Medication orders and management Critical Care Time Critical Care Time: Code activated: No Critical Care Time (min): 0 Procedures Central Line Placement^ Left Femoral: Time out performed: Yes Patient placed on monitor/pulse ox: Yes MD prep: mask, gown and gloves Central line prep: Povidone-Iodine 1% Ultrasound used for placement: Yes Central line lumen inserted: triple Post procedure: sutured in place, good blood return, all ports aspirated, flushed, capped and sterile dressing applied Post procedure x-ray: tip of catheter in good position Patient tolerated procedure: well and no complications Complications: none Coding Level of Care Code Acute Solaris Administrator for Brock Barrera
--- NOTE | 2021-05-19 20:36 | PC.NURSE ---
R femoral CVL placed per Dr. Hassan. Pt tolerated well. No desats. All lines draw blood and flush freely. Dressing c/d/i. All medications moved from PIV's to CVL. Will monitor.
[2021-05-19] MEDS: enoxaparin 40 mg/0.4 mL Syringe SUBCUT (21:11)
[2021-05-20] VITALS (75 sets, daily range): BP systolic 73–160; BP diastolic 47–87; PULSE 55–74; RESP 19; TEMP 36.4–36.6; O2SAT 85–98
[2021-05-20] MEDS: propofol 1,000 MG/100 ML INJ 27.22 MG IV ×5 (00:13→13:00)
[2021-05-20] MEDS: ipratropium-albuterol 3 mL Neb INHALATION ×4 (03:13→20:26)
[2021-05-20 04:41] LABS: Alanine Aminotransferase 45 U/L (0-41); Albumin Level 2.5 g/dL (3.5-5.2); Alkaline Phosphatase 129 IU/L (40-130); Anion Gap 22.1 (5-19); Aspartate Amino Transferase 38 U/L (0-40); Blood Urea Nitrogen 38 mg/dL (8-23); Calcium 7.7 mg/dL (8.5-10.5); Carbon Dioxide 20 mmol/L (22-29); Chloride 95 mmol/L (98-107); Globulin 3.7 g/dL (1.3-4.6); Glucose 162 mg/dL (65-115); Magnesium 2.3 mg/dL (1.7-2.3); Osmolality Calculated 287 mOsm/kg (285-295); Potassium 5.1 mmol/L (3.5-5.1); Sodium 132 mmol/L (136-145); Total Bilirubin 0.6 mg/dL (0.15-1.2); Total Protein 6.2 g/dL (6.6-8.7)
[2021-05-20 04:45] LABS: Basophils # 0.1 10^3/uL (0.0-0.1); Basophils % 0.3 %; Hemoglobin 14.7 g/dL (11.7-16.6); Lymphocytes # 1.1 10^3/uL (0.8-4.8); Lymphocytes % 2.8 %; Mean Corpuscular Hemoglobin 30.8 pg (28.0-34.0); Mean Corpuscular Volume 96.4 fl (80-94); Mean Platelet Volume 9.7 fL (7.4-10.4); Monocytes # 0.5 10^3/uL (0.2-0.9); Monocytes % 1.3 %; Neutrophils # 34.44 10^3/uL (1.8-7.7); Neutrophils % 93.4 %; Nucleated Red Blood Cells % 0 %; Platelet Count 316 10^3/cmm (130-400); Red Blood Count 4.77 10^6/uL (4.1-5.3); Red Cell Distribution Width 13.9 % (12.1-15.1)
[2021-05-20 04:53] LABS: White Blood Count 36.9 10^3/uL (4.0-10.0)
[2021-05-20 05:38] LABS: ABG PCO2 39.9 mmHg (35-45); ABG PH Result 7.38 (7.35-7.45); Arterial Blood Gas Hematocrit 48.4 % (42-52); Base Excess ABG -1.6 mmol/L (-2.0-2.0); Blood Gas Allen Test Pos; Blood Gas Operator Identificat Anonymous; Blood Gas Sample Site Radial, right; Blood Gas Sample Type Arterial; HCO3 ABG 23.5 mmol/L (22-26); Oxygen Device VENT
--- NOTE | 2021-05-20 05:46 | PC.NURSE ---
Shift Note Frequent safety and comfort rounds continue. Orders and/or nursing care completed as indicated. Patient monitored for response to intervention and treatment(s). Education provided includes treatment plan, medications, proning and cvl placement. verbalizes understanding. VSS. Gtts infusing per orders. Vent settings per RT. Will continue to monitor.
--- NOTE | 2021-05-20 07:00 | XR_ITS ---
WS: [id number] Portable AP upright chest, 05/20/2021 Clinical Data: resp failure Comparison: Portable chest, 05/19/2021 Findings: No nodules, masses or effusions are seen. The heart is normal. The pulmonary vascularity is not increased. No pneumothorax is seen. The bilateral patchy opacities have cleared significantly an d there is a small residual. The endotracheal tube and nasogastric tube remain in same position. XR/XR chest 1V portable [id number] Impression: 1. Significant clearing of bilateral patchy pulmonary opacities. 2. No change in endotracheal tube and nasogastric tube.
--- NOTE | 2021-05-20 08:35 | PM.CONSULT ---
Providers/Reason For Consult Consulting Physician/Specialty*: Gio Duffy MD /Pulmonary Critical Care Reason for Consult*: Acute hypoxic respiratory failure secondary to COVID-19 pneumonia Requesting Physician: Aron Griffith MD Attending Physician: Aron Griffith MD Primary Care Provider: [facility] History of Present Illness History of Present Illness Upon review of the chart; Bennie Chandra is a 71 year old male who presented to the hospital for worsening shortness of breath started about 10 days prior to admission. At that time he complained of experiencing shortness of breath, fatigue, lethargy and fever at home. He did not experience chest pain or diarrhea.He went to [facility] where Covid test was done it turned back positive 05/14. In the ER he was diagnosed with acute hypoxia he was quickly transitioned to heated high flow; saturating 94% on 35 L, 45%. He was happy to see pump service supervisor. He was placed on remdesivir, steroids and baricitinib. Chest x-ray consistent with multilobar pneumonia. Gradually his oxygen requirements increased and he was intubated on 05/20/2020. Post intubation, despite appropriate ET tube placement on chest x-ray, patient was still seen desaturating in 60s and 70s and noted to experience seizure-like activity. Oxygenation improved after increasing PEEP to 16. Patient was proned. Repeat CTA performed ruled out PE but still showed bilateral infiltrates. Vasogenic was discontinued and patient antibiotic coverage was changed from Levaquin to vancomycin and imipenem. Pulmonary critical care consulted for acute hypoxic respiratory failure requiring mechanical intubation. -Seen multiple times today at bedside -Today morning patient was seen sedated, paralyzed, in prone position -No acute overnight events noted -CT head was negative for any acute events -Labs revealed significantly increased leukocytosis 36,000 - his O2 requirement dropped from 100% to 40% with significant improvement in PaO2. -Map was greater than 65% on Levophed to MG-which was later discontinued -Underwent bronchoscopy today evening for airway inspection and collection of BAL -Other labs and imaging reviewed Review of Systems General: Reports: ROS unobtainable due to endotracheal tube, ROS unobtainable due to medical condition and ROS unobtainable due to mental status Meds/Allergies Home Medications and Allergies Home Medications Medication Instructions Recorded Confirmed Last Taken Type Vitamin B-12 Gummies 1 tab PO DAILY 05/14/21 05/14/21 Unknown History ibuprofen [Advil] 600 mg PO Q6H PRN 05/14/21 05/14/21 05/14/21 History Allergies Allergy/AdvReac Type Severity Reaction Status Date / Time No Known Allergies Allergy Verified 05/14/21 16:38 Current Medications Current Medications Generic Name Dose Route Start Last Admin Trade Name Freq PRN Reason Stop Dose Admin Acetaminophen 650 mg 05/14/21 21:33 05/18/21 05:03 Acetaminophen 325 Mg Tablet PO 650 mg Q6H PRN Administration Mild/Mod Pain Or Temp >/= 101 Albuterol/Ipratropium 3 ml 05/19/21 09:00 05/20/21 08:07 Ipratropium-Albuterol 3 Ml Neb INHALATION 3 ml Q6H.RESPIRATORY SEVERIANO Administration Artificial Tears 1 applic 05/19/21 12:19 05/19/21 13:25 Artificial Tears Op Oint 3.5 Gm EYE-BOTH 1 applic PRN PRN Administration DRY EYE(S) Dexamethasone 6 mg 05/15/21 13:00 05/19/21 12:32 Dexamethasone 10 Mg/Ml Inj IVP 6 mg Q24H SEVERIANO Administration Enoxaparin Sodium 40 mg 05/14/21 22:00 05/19/21 21:11 Enoxaparin 40 Mg/0.4 Ml Syringe SUBCUT 40 mg Q24H SEVERIANO Administration Imipenem/Cilastatin Sodium 500 100 mls @ 200 mls/hr 05/19/21 09:00 05/20/21 03:42 mg/ Sodium Chloride IV Infused Q6H SEVERIANO Infusion Protocol Vancomycin/PEG/NADA/Lysine/Water 1,250 mg in 250 mls @ 200 mls/hr 05/19/21 10:00 05/19/21 23:05 Vancocin IV Infused Q12H SEVERIANO Infusion Fentanyl 1,000 mcg/ Sodium 100 mls @ 0 mls/hr 05/19/21 10:15 05/20/21 06:10 Chloride IV 100 mcg/hr .Q0M SEVERIANO 10 mls/hr Administration Protocol Per Protocol Propofol 1,000 mg in 100 mls @ 0 mls/hr 05/19/21 10:15 05/20/21 06:54 Diprivan IV 50 mcg/kg/min .Q0M SEVERIANO 27.22 mls/hr Administration Protocol Per Protocol Cisatracurium Besylate 100 mg/ 100 mls @ 0 mls/hr 05/19/21 12:30 05/19/21 15:00 Sodium Chloride IV 0.75 mcg/kg/min .Q0M SEVERIANO 4.08 mls/hr Titration Protocol Per Protocol Midazolam HCl 100 mg/ Sodium 100 mls @ 0 mls/hr 05/19/21 12:30 05/19/21 12:30 Chloride IV 2 mg/hr .Q0M SEVERIANO 2 mls/hr Administration Protocol Per Protocol Norepinephrine Bitartrate 8 mg 508 mls @ 0 mls/hr 05/19/21 13:00 05/20/21 06:27 / Dextrose IV 2 mcg/min .Q0M SEVERIANO 7.62 mls/hr Titration Protocol Per Protocol Ondansetron HCl 4 mg 05/14/21 21:33 05/18/21 19:52 Ondansetron 2 Mg/Ml Sdv 2 Ml IVP 4 mg Q6H PRN Administration NAUSEA AND VOMITING Senna/Docusate Sodium 1 tab 05/15/21 09:00 05/19/21 09:11 Sennosides-Docusate Tablet PO Not Given DAILY SEVERIANO PFSH Acute PFSH: Medical History Anemia Arthritis Hemorrhoids History of ankle fracture HTN (hypertension) Hyperlipemia Surgical History Hx of appendectomy Family History Other Diabetes Social History Smoking and tobacco status: former smoker Quit status (tobacco): has quit using tobacco Alcohol intake: never Vitals/I&O/Wt Last Vital Signs Temp 98.6 F 05/19/21 20:00 Pulse 68 05/20/21 08:07 Resp 19 H 05/20/21 08:07 BP 106/74 05/20/21 04:00 Pulse Ox 98 05/20/21 08:07 05/19/21 05/20/21 05/20/21 22:59 06:59 14:59 Intake Total 887.579 / 1340.698 642.992 / 1983.690 Output Total 1000 / 1000 1000 / 1999 Balance -112.421 / 340.698 -357.008 / -16.310 Weight last 48 hrs Weight 188 lb 9 oz Physical Exam Narrative: EXAM NARRATIVE: PHYSICAL EXAM: General: lying in bed, sedated and intubated. HEENT:NCAT, PERRLA, EOMI Neck: Supple Lungs: Some bilateral coarse crepitations Heart: s1/s2, RRR Abd: soft, NT, ND, BS + Normoactive Extremities: No edema AIR BRAKE MAN: sedated and limited AIR BRAKE MAN exam possible. SKIN: no rash LDA: # CVC: Left femoral 05/19/2020 Data Micro: Micro: Microbiology 05/19/21 11:25 Gram Stain - Final Sputum - Endotrac heal Tube Aspirate 05/19/21 05:45 MRSA Culture - Fin al Nose 05/19/21 13:32 Blood Culture - Pr eliminary Blood SPECIMEN COLLEC MATT 05/19/21 13:30 Blood Culture - Pr eliminary Blood SPECIMEN COLLE MATT A&P Assessment and plan (1) Acute respiratory failure with hypoxia: Status: Acute (2) Acute respiratory distress syndrome (ARDS) due to 2019 novel coronavirus: Status: Acute (3) JAREN (acute kidney injury): Status: Acute #Acute hypoxic respiratory failure secondary to ARDS due to COVID-19 pneumonia #JAREN-secondary to COVID-19 #Deranged LFTs likely secondary to COVID-19 #Seizure-like activity immediately post intubation-likely secondary to hypoxia -CT head on 08/2020-negative -Admitted 05/13/2021-Covid test + 05/13/2021 -Completed 5-day course of remdesivir and currently on dexamethasone 6 mg daily -Discontinued baricitinib as there is high suspicion for bacterial pneumonia -CTA ruled out PE which showed bilateral lower lobe infiltrates -Significant bump in the WBC count -procalcitonin 0.04 -Initially on high flow nasal cannula-worsening FiO2 requirements and intubated on 05/19/2020 -Discontinued Levaquin and started on vancomycin and imipenem on 05/19/2020 -Currently sedated with fentanyl 100 MCG gtt. and propofol 25 -S/p 1 proning session-FiO2 requirement down to 50% and PEEP 10 -ABG today morning showed significant improvement in PaO2 -S/p bronchoscopy 05/20/2020 evening showed airway mucosa with black pigmentation and mucopurulent secretions predominantly on right side subsegments -currently off pressors -Patient has JAREN 1.5 potassium 5.1-started on NS at 30 mL/h -Sugars are well controlled -Deranged LFT secondary to COVID-19 pneumonitis-currently will monitor -Prognosis guarded -DVT prophylaxis Lovenox - updated Recommendations conveyed to hospitalist, RN, RT taking care of the patient Still need close ICU monitoring Consult Attestations Medical Necessity Statement: Acute hypoxic respiratory failure secondary to ARDS due to COVID-19 pneumonia requiring mechanical ventilation possible bacterial pneumonia-covered with antibiotics Time Spent in Patient Care: Greater than 35 minutes (>than 50% of time spent in counselling and/or direct pt care on unit). Critical Care Time: The high probability of a clinically significant, sudden or life threatening deterioration of the patient's [pulmonary, neurological, renal] system(s) required my full and direct attention, intervention and personal management. The critical care time is as shown. This time is in addition to time spent performing any reported procedures but includes the following: [x] Data and vital sign review and interpretation [x] Patient assessment, examination and intervention [x] Documentation [x] Medication orders and management Critical Care Time (min): 55 Coding Level of Care Code New Pt Acute Title Curative Specialist for Chg Fwd Patient Type New History Comprehensive Exam Comprehensive Medical Decision Making High Complexity Diagnoses Acute respiratory failure with hypoxia J96.01 Acute respiratory distress syndrome (ARDS) due to 2019 novel coronavirus U07.1; J80 JAREN (acute kidney injury) N17.9 Time Spent (min) 55
--- NOTE | 2021-05-20 09:11 | PC.CHAP ---
Pastoral Care Encounter/Spiritual Assessment Type of Contact [] Declined boilermaker fitter visit [] Patient/Family/Request visit [] Outpatient visit [] Follow-up visit [] Physician referral [] Code/Alert [x] Routine visit [] Staff referral [] Actively dying [] Patient sleeping [] Family support [] [] Out of room [] Palliative care [] [x] Receiving care in room [] Pre-surgical visit [] Trauma [] Long length of stay [x] ICU visit [x] Other: on tummy... on vent... quarantined Relational/Emotional Strength [] Patient feels connected with others/family/visitors/staff [] Distress [] Loneliness/isolation [] Abandonment Spirituality of Patient [x] Person of Karla [] Attends Presybeterian of their Karla [] Believes in Prayer [] Reads Bible or Lutheran materials [] There are Spiritual issues to be addressed Finance Professional Interventions [x] Prayer [] Active listening [] Non-anxious presence [] Spiritual/emotional support [] Crisis/trauma care [] Spiritual counseling [] Bereavement support [] Provided bereavement packet [] Provided Bible/devotional materials [] Provided toy/stuffed animal, coloring book to patient or family member [] Provided Communion [] Anointing/[place] [] Salvation [x] Completed spiritual assessment [] Other: Impact on Illness or Injury [] Angry [] Fearful [] Anxious [] Often cries [] Exhaustion [] Unable to work [] Unable to attend catholic [] Unable to walk/stand [] Unable to read [] Unable to drive [] Unable to eat/drink [] Unable to sleep [] Unable to be with family [] Patient intubated [] Other: Summary Time spent with patient
[2021-05-20] MEDS: vancomycin 1,250 MG/250 ML PIGGYBACK 200 MG IV (09:46)
--- NOTE | 2021-05-20 10:35 | P.PN_ITS ---
Subjective Subjective: Interval history: Elias is sedated and paralyzed on the ventilator. Medications: Reviewed: Yes Vitals/I&O/Wt Last Vital Signs Temp 97.8 F 05/20/21 07:00 Pulse 66 05/20/21 09:00 Resp 19 H 05/20/21 10:29 BP 111/68 05/20/21 09:00 Pulse Ox 96 05/20/21 10:29 05/19/21 05/20/21 05/20/21 22:59 06:59 14:59 Intake Total 887.579 / 1340.698 642.992 / 1983.690 181.405 / 181.405 Output Total 1000 / 1000 1000 / 2000 Balance -112.421 / 340.698 -357.008 / -16.310 181.405 / 181.405 Weight last 48 hrs Weight 85.531 kg Physical Exam Narrative: EXAM NARRATIVE: General exam is a sedated and animated white male. Neck is supple Cardiovascular regular rate and rhythm, heart rate now approximately 100 Lungs coarse bilaterally Abdomen is soft. Nondistended. Positive bowel sounds demonstrates Combs Extremities no cyanosis clubbing or kayla Data : 05/20/21 02:50 05/20/21 02:50 Micro: Microbiology 05/19/21 11:25 Gram Stain - Final Sputum - Endotracheal Tube Aspirate 05/19/21 05:45 MRSA Culture - Final Nose 05/19/21 13:32 Blood Culture - Preliminary Blood SPECIMEN COLLECTED 05/19/21 13:30 Blood Culture - Preliminary Blood SPECIMEN COLLECTED A&P Assessment and plan (1) Acute respiratory failure with hypoxia: Intubated yesterday. FiO2 requirement has been decreasing, as well as PEEP Pulmonary consultation obtained today Sedation with Versed, fentanyl, propofol Supine today, discontinue paralyzation. Wean sedative medicines to check responsiveness Norepinephrine added for hypotension, wean as tolerated CTA was checked. No pulmonary embolism. Status: Acute (2) COVID-19: Continue remdesivir Continue dexamethasone Has been receiving baricitinib. This was discontinued secondary to concern of bacterial infection Pulmonary toilet MRSA PCR negative Currently on Primaxin and vancomycin. Was on Levaquin previously. Sputum culture obtained and pending. Blood culture pending Procalcitonin negative Repeat CT negative for pulmonary embolism. Status: Acute Additional A&P Information Seizure-like activity. May be secondary to hypoxia but cannot rule out PHARMACY LABORATORY TECHNICIAN event. CT head negative. Lessen sedation and monitor for responsiveness Acute kidney injury. Continue to monitor closely. Hypotension expected with sedation, wean norepinephrine as tolerated Mild elevation in potassium. This is improved Full code Lovenox for DVT prophylaxis Prognosis guarded. Discussed in detail with . Attestations Medical Necessity Statement*: Needs continued hospital stay secondary to severe Covid 19 pneumonia requiring endotracheal intubation Critical Care Time: The high probability of a clinically significant, sudden or life threatening deterioration of the patient's [pulmonary, renal, neurologic ] system(s) required my full and direct attention, intervention and personal management. The critical care time is as shown. This time is in addition to time spent performing any reported procedures but includes the following: [x] Data and vital sign review and interpretation [x] Patient assessment, examination and intervention [x] Documentation [x] Medication orders and management Critical Care Time (min): 35 Coding Level of Care Code Acute Corporate Communications Specialist for Kaylin Bruce Diagnoses Acute respiratory failure with hypoxia J96.01 COVID-19 U07.1
[2021-05-20] MEDS: cisatracurium 100 MG in sodium chloride 0.9% 50 ML IV (10:41)
[2021-05-20] MEDS: dexamethasone 10 mg/mL INJ 6 MG IVP (12:27)
[2021-05-20] MEDS: sodium chloride 0.9% 1,000 ML 30 ML IV (12:27)
--- NOTE | 2021-05-20 15:45 | PC.RESP ---
RT Shift Note Frequent safety and respiratory rounds continue. Orders completed as indicated. Patient monitored pre and post treatments throughout shift. Patient [Did.] tolerate treatments appropriately. Condition [I.DidNotChange]. Patient and/or patient support representative educated on respiratory treatment and medications. Patient and/or patient support representative [unable to comprehend]. Will continue to monitor patient progress.
--- NOTE | 2021-05-20 17:01 | PC.NURSE ---
1005 Vanc turned off per Cole in pharmacy.
--- NOTE | 2021-05-20 17:59 | P.PCN_ITS ---
Procedure/Consent Time out: Time Out Performed: Yes Consent: Consent for Procedure: Consent obtained from other (indicate) (), Risks & Benefits reviewed and Agrees to proceed with procedure Procedure Narrative: Procedure: Flexible bronchoscopy with airway inspection, airway clearance of secretions and obtaining bronchoalveolar lavage sample Pre-Operative Diagnosis: Pneumonia Post-Operative Diagnosis: Same Indication: Acute hypoxic respiratory failure in patient with COVID-19 pneumonia and sudden increasing leukocytosis with imaging showing bilateral lung infiltrates Anesthesia: Versed 2 mg, fentanyl 25 MCG and titrated fentanyl GTT and propofol gtt. Pre-procedure Evaluation: Patient was evaluated clinically and ancillary testing reviewed. The risk of having active MTB infection is very low in my clinical judgement. ASA:4 Malampati score: unable to evaluate due to presence of endotracheal tube Consent: Consents were obtained from MPOA and placed in the chart Procedure Details: Time out was performed by the procedure team and nursing staff. Vent support maintained on Fio2 100. The bronchoscope was introduced through the ETT. A bronchoscopic airway exam was performed to evaluate the visible tracheobronchial tree to the segmental level. Summary of Significant Findings: -Bronchoscope passed through ET tube, 6 ml 1% lidocaine instilled into the trachea, both right and left main bronchus. Distal trachea and main rell visualized which were sharp and normal. Then the scope was passed through the right bronchial tree was assessed to include the right mainstem bronchus, RBI, and RUL/RML/RLL bronchi to the segmental and subsegmental levels. No active bleeding noted. Overall mucosa appeared normal trachea, main bronchi, with some dark pigmentation noted subsegmental mucosa. Scant mucopurulent secretions noted through right lower lobe and middle lobe. Then the scope was left bronchial tree was assessed to include the left mainstem bronchus, MARCELINO, Lingula, and LLL bronchi to the segmental and subsegmental level. No active bleeding noted. Mucosa appeared normal. Clear secretions noted which were suctioned right away. BAL obtained from right middle lobe the bronchoscope was then removed and the procedure terminated. Estimated Blood Loss: None Specimens: Bronchoalveolar lavage was taken from right middle lobe and sent for microbiology cultures, fungal cultures, MOUSTAPHA preparation, PCP PCR. Complications:None; patient tolerated the procedure well. Disposition: Patient remains critically ill, intubated and stays in ICU Gio Duffy MD Pulmonary critical Care Medicine [facility] Acute Procedures Epistaxis Control: Time out performed: Yes
--- NOTE | 2021-05-20 18:57 | PC.NURSE ---
Addendum entered by Pb Chung RN 05/20/21 19:16: Wasted 40ml versed with Radha MCMANUS. Original Note: Wasted 40ml of Versed with HUMAIRA
[2021-05-20] MEDS: propofol 1,000 MG/100 ML INJ 10.89 MG IV (20:36)
[2021-05-20] MEDS: enoxaparin 40 mg/0.4 mL Syringe SUBCUT (21:04)
[2021-05-21] VITALS (50 sets, daily range): BP systolic 110–160; BP diastolic 62–91; PULSE 53–81; RESP 19–20; TEMP 36.4–37.4; O2SAT 90–100
[2021-05-21] MEDS: ipratropium-albuterol 3 mL Neb INHALATION ×4 (03:04→20:16)
[2021-05-21] MEDS: propofol 1,000 MG/100 ML INJ 10.89 MG IV ×4 (04:18→23:57)
[2021-05-21 05:03] LABS: ABG PCO2 44.6 mmHg (35-45); ABG PH Result 7.37 (7.35-7.45); Arterial Blood Gas Hematocrit 53.8 % (42-52); Base Excess ABG -0.2 mmol/L (-2.0-2.0); Blood Gas Allen Test Pos; Blood Gas Operator Identificat JB; Blood Gas Sample Site Radial, right; Blood Gas Sample Type Arterial; HCO3 ABG 25.6 mmol/L (22-26); Oxygen Device VENT; PO2 ABG 62.3 mmHg (80.0-100.0)
[2021-05-21 05:04] LABS: Basophils # 0.1 10^3/uL (0.0-0.1); Basophils % 0.2 %; Hematocrit 42.2 % (42.0-52.0); Hemoglobin 13.6 g/dL (11.7-16.6); Lymphocytes # 0.6 10^3/uL (0.8-4.8); Lymphocytes % 2.2 %; Mean Corpuscular HGB Conc 32.2 g/dL (30.0-36.0); Mean Corpuscular Hemoglobin 30.5 pg (28.0-34.0); Mean Corpuscular Volume 94.6 fl (80-94); Mean Platelet Volume 10.2 fL (7.4-10.4); Monocytes # 0.5 10^3/uL (0.2-0.9); Monocytes % 1.7 %; Neutrophils # 25.78 10^3/uL (1.8-7.7); Neutrophils % 92.2 %; Nucleated Red Blood Cells % 0 %; Platelet Count 300 10^3/cmm (130-400); Red Blood Count 4.46 10^6/uL (4.1-5.3); Red Cell Distribution Width 13.8 % (12.1-15.1); White Blood Count 27.9 10^3/uL (4.0-10.0)
[2021-05-21 05:25] LABS: Alanine Aminotransferase 32 U/L (0-41); Albumin Level 2.3 g/dL (3.5-5.2); Alkaline Phosphatase 144 IU/L (40-130); Anion Gap 18.1 (5-19); Aspartate Amino Transferase 25 U/L (0-40); Blood Urea Nitrogen 38 mg/dL (8-23); Calcium 8.4 mg/dL (8.5-10.5); Carbon Dioxide 21 mmol/L (22-29); Chloride 100 mmol/L (98-107); Globulin 3.7 g/dL (1.3-4.6); Glucose 158 mg/dL (65-115); Osmolality Calculated 290 mOsm/kg (285-295); Potassium 5.1 mmol/L (3.5-5.1); Sodium 134 mmol/L (136-145); Total Bilirubin 0.4 mg/dL (0.15-1.2)
[2021-05-21 05:59] LABS: Vancomycin Random 7.6 ug/mL (20.0-40.0)
--- NOTE | 2021-05-21 06:12 | PC.NURSE ---
Resting in bed. Vent settings per RT. Fio2 35%. Gtts infusing per orders. Repositioned q2h and PRN. Combs cath draining freely to BSD. Will monitor/
--- NOTE | 2021-05-21 07:00 | XR_ITS ---
WS: [id number] Portable AP upright chest, 05/21/2021 Clinical Data: resp failure Comparison: Portable chest, 05/20/2021 Findings: The patchy bilateral pulmonary opacities increased slightly since yesterday. The endotrache al tube and nasogastric tube remain in good position. Monitor leads are on the chest wall. XR/XR chest 1V portable [id number] Impression: Slight increase in bilateral pulmonary opacities.
--- NOTE | 2021-05-21 07:15 | P.PN_ITS ---
Subjective Subjective: Interval history: Sedated on ventilator. Bronchoscopy was performed yesterday Medications: Reviewed: Yes Vitals/I&O/Wt Last Vital Signs Temp 97.6 F 05/20/21 20:00 Pulse 57 L 05/21/21 06:00 Resp 19 H 05/21/21 06:09 BP 124/74 05/21/21 04:00 Pulse Ox 94 05/21/21 06:09 05/20/21 05/21/21 05/21/21 22:59 06:59 14:59 Intake Total 263.613 / 732.792 259.186 / 991.978 Output Total 200 / 750 375 / 1125 Balance 63.613 / -17.208 -115.814 / -133.022 Weight last 48 hrs Weight 84.113 kg Weight 85.531 kg Physical Exam Narrative: EXAM NARRATIVE: General exam is a sedated and animated white male. Urine output 1100 Neck is supple Cardiovascular regular rate and rhythm, heart rate now approximately 100 Lungs relatively clear Abdomen is soft. Nondistended. Positive bowel sounds demonstrates Combs Extremities no cyanosis clubbing or kayla Data : 05/21/21 04:41 05/21/21 04:41 Micro: Microbiology 05/19/21 13:30 Blood Culture - Preliminary Blood NEGATIVE TO DATE 05/19/21 13:32 Blood Culture - Preliminary Blood NEGATIVE TO DATE 05/19/21 11:25 Gram Stain - Final Sputum - Endotracheal Tube Aspirate Sputum Culture - Preliminary A&P Assessment and plan (1) Acute respiratory failure with hypoxia: Intubated May 19. Ventilator has been weaned since that time and he is down to 35% FiO2 Pulmonary consultation appreciated Sedation with fentanyl, propofol Norepinephrine added for hypotension, wean as tolerated. This has been discontinued currently. CTA was checked. No pulmonary embolism. Status: Acute (2) COVID-19: Continue remdesivir Continue dexamethasone Has been receiving baricitinib. This was discontinued secondary to concern of bacterial infection Pulmonary toilet MRSA PCR negative Currently on Primaxin and vancomycin. Was on Levaquin previously. Sputum culture obtained and pending. Blood culture negative to date Procalcitonin negative Repeat CT negative for pulmonary embolism. Status: Acute Additional A&P Information Seizure-like activity. May be secondary to hypoxia but cannot rule out RETAIL SPECIAL EVENT ASSOCIATE event. CT head negative. Was moving all 4 extremities last night. Acute kidney injury. Continue to monitor closely. This appears to have improved Hypotension expected with sedation, norepinephrine discontinued currently Mild elevation in potassium. This is improved Full code Lovenox for DVT prophylaxis Prognosis guarded. Attestations Medical Necessity Statement*: Needs continued hospitalization secondary respiratory failure from COVID-19 pneumonia. Critical Care Time: Critical Care Time (min): 30 Other Attestations: The high probability of a clinically significant, sudden or life threatening deterioration of the patient's [pulmonary, neurologic] system(s) required my full and direct attention, intervention and personal m anagement. The critical care time is as shown. This time is in addition to time spent performing any reported procedures but includes the following: [x] Data and vital sign review and interpretation [x] Patient assessment, examination and intervention [x] Documentation [x] Medication orders and management Coding Level of Care Code Acute Mobile Disc Jockey for Brock Barrera Diagnoses Acute respiratory failure with hypoxia J96.01 COVID-19 U07.1
--- NOTE | 2021-05-21 08:59 | PM.PN ---
Subjective Subjective: Interval history: -Seen patient at bedside today morning -On minimal vent settings with FiO2 35% and PEEP of 10-ABG looks good -Patient is net -500 cc over last 24 hours-we will DC IVF -Downtrending leukocytosis today 27K; day 3 of broad-spectrum antibiotic coverage; BAL cultures pending -If his oxygen requirements remain the same throughout today then we will plan for awakening and breathing trial tomorrow -Plan is to taper off fentanyl and use more propofol for sedation and prepare for awakening trial -Plan is to start tube feeding today at the rate of 30 cc/h -Other labs and imaging reviewed Medications: Reviewed: Yes Vitals/I&O/Wt Last Vital Signs Temp 97.6 F 05/20/21 20:00 Pulse 57 L 05/21/21 08:15 Resp 19 H 05/21/21 08:24 BP 124/74 05/21/21 04:00 Pulse Ox 95 05/21/21 08:24 05/20/21 05/21/21 05/21/21 22:59 06:59 14:59 Intake Total 263.613 / 732.792 259.186 / 991.978 Output Total 200 / 750 375 / 1125 Balance 63.613 / -17.208 -115.814 / -133.022 Weight last 48 hrs Weight 185 lb 7 oz Weight 188 lb 9 oz Physical Exam Narrative: EXAM NARRATIVE: PHYSICAL EXAM: General: lying in bed, sedated and intubated. HEENT:NCAT, PERRLA, EOMI Neck: Supple Lungs: Bilateral diffuse coarse crepitations, Heart: s1/s2, RRR Abd: soft, NT, ND, BS + Normoactive Extremities: No edema CONTAMINATION CONSULTANT: sedated and limited CONTAMINATION CONSULTANT exam possible. SKIN: no rash LDA: # CVC: Left femoral central line 05/19/2021 Data : 05/21/21 04:41 05/21/21 04:41 Other Labs: Radiology Impressions Chest CTA 05/19/21 12:38 IMPRESSION: 1. Extensive, bilateral areas of ground-glass opacification in both lungs lungs. The severity of the ground-glass opacification has decreased, however is more diffuse compared with the previous study. Findings are suspicious for atypical pneumonia, including viral organisms. There is also interval development of bilateral lower lobe alveolar airspace disease with air bronchograms and patchy alveolar airspace disease in the right upper lobe, a superimposed bacterial pneumonia cannot be ruled out. Recommend followup chest imaging to insure resolution of these findings. 2. No evidence for pulmonary embolism. 3. There is an endotracheal tube with the tip 3.3 cm above the rell. 4. There is an enteric tube with the tip in the descending duodenum. 5. Cholelithiasis. 6. Incidental/nonacute findings are listed in the report. Head CT 05/19/21 12:38 IMPRESSION: No acute intracranial abnormality. Chest X-Ray 05/21/21 07:00 Impression: Slight increase in bilateral pulmonary opacities. Laboratory Results WBC 27.9 10^3/uL (4.0-10.0) H 05/21/21 04:41 RBC 4.46 10^6/uL (4.1-5.3) 05/21/21 04:41 Hgb 13.6 g/dL (11.7-16.6) 05/21/21 04:41 Hct 42.2 % (42.0-52.0) 05/21/21 04:41 MCV 94.6 fl (80-94) H 05/21/21 04:41 MCH 30.5 pg (28.0-34.0) 05/21/21 04:41 MCHC 32.2 g/dL (30.0-36.0) 05/21/21 04:41 RDW 13.8 % (12.1-15.1) 05/21/21 04:41 Plt Count 300 10^3/cmm (130-400) 05/21/21 04:41 MPV 10.2 fL (7.4-10.4) 05/21/21 04:41 Neut % (Auto) 92.2 % 05/21/21 04:41 Lymph % (Auto) 2.2 % 05/21/21 04:41 [place] % (Auto) 1.7 % 05/21/21 04:41 Eos % (Auto) 0.0 % 05/21/21 04:41 Baso % (Auto) 0.2 % 05/21/21 04:41 Neut # (Auto) 25.78 10^3/uL (1.8-7.7) H 05/21/21 04:41 Lymph # (Auto) 0.6 10^3/uL (0.8-4.8) L 05/21/21 04:41 [place] # (Auto) 0.5 10^3/uL (0.2-0.9) 05/21/21 04:41 Eos # (Auto) 0.0 10^3/uL (0.0-0.8) 05/21/21 04:41 Baso # (Auto) 0.1 10^3/uL (0.0-0.1) 05/21/21 04:41 Nucleated RBC % (auto) 0 % 05/21/21 04:41 Nucleated RBCs # 0.0 /100WBC 05/21/21 04:41 D-Dimer 2.76 ug/mIFEU (0-0.59) H 05/19/21 09:19 Specimen Type Arterial 05/21/21 04:20 Sample Site Radial, right 05/21/21 04:20 ABG pH 7.37 (7.35-7.45) 05/21/21 04:20 ABG pCO2 44.6 mmHg (35-45) 05/21/21 04:20 ABG pO2 62.3 mmHg (80.0-100.0) L 05/21/21 04:20 ABG HCO3 25.6 mmol/L (22-26) 05/21/21 04:20 ABG O2 Saturation 98.0 05/19/21 16:52 ABG Base Excess -0.2 mmol/L (-2.0-2.0) 05/21/21 04:20 Chris Test Pos 05/21/21 04:20 A-a O2 Gradient 69.2 mmHg (5-10) H 05/19/21 16:52 Hematocrit 53.8 % (42-52) H 05/21/21 04:20 Hgb O2 Saturation 97.2 % (95-100) 05/19/21 16:52 Carboxyhemoglobin < 0.0 %THgb (0.4-20.1) L 05/19/21 16:52 Methemoglobin 1.0 % (0.4-1.5) 05/19/21 16:52 Total Hemoglobin 16.4 g/dL (14-18) 05/19/21 16:52 Sodium 136.0 mmol/L (131-143) 05/19/21 16:52 Potassium 4.8 mmol/L (3.5-5.0) 05/19/21 16:52 Glucose 139.0 mg/dL (70-115) H 05/19/21 16:52 Ionized Calcium 1.1 mmol/L (1.1-1.4) 05/19/21 16:52 O2 Delivery Device Vent 05/21/21 04:20 O2 Liters/Min 35.0 % 05/18/21 04:00 Mechanical Rate 18.0 05/19/21 12:10 FiO2 35.0 % 05/21/21 04:20 Tidal Volume 0.50 05/21/21 04:20 PEEP 10.0 cmH20 05/21/21 04:20 Electrostatic Paint Operator ID Norris 05/21/21 04:20 Sodium 134 mmol/L (136-145) L 05/21/21 04:41 Potassium 5.1 mmol/L (3.5-5.1) 05/21/21 04:41 Chloride 100 mmol/L (98-107) 05/21/21 04:41 Carbon Dioxide 21 mmol/L (22-29) L 05/21/21 04:41 Anion Gap 18.1 (5-19) 05/21/21 04:41 BUN 38 mg/dL (8-23) H 05/21/21 04:41 Creatinine 1.1 mg/dL (0.7-1.2) 05/21/21 04:41 GFR Calculation Not Reportable 05/21/21 04:41 Glucose 158 mg/dL (65-115) H 05/21/21 04:41 POC Glucose 200 mg/dL (70-110) H 05/17/21 20:57 Calculated Osmolality 290 mOsm/kg (285-295) 05/21/21 04:41 Lactic Acid 1.7 mmol/L (0.5-2.2) 05/14/21 16:00 Calcium 8.4 mg/dL (8.5-10.5) L 05/21/21 04:41 Magnesium 2.3 mg/dL (1.7-2.3) 05/20/21 02:50 Total Bilirubin 0.4 mg/dL (0.15-1.2) 05/21/21 04:41 AST 25 U/L (0-40) 05/21/21 04:41 ALT 32 U/L (0-41) 05/21/21 04:41 Alkaline Phosphatase 144 IU/L (40-130) H 05/21/21 04:41 Lactate Dehydrogenase 613 U/L (135-225) H 05/18/21 06:39 Troponin T Gen 5 ng/L 9 ng/L (0-15) 05/16/21 15:30 Troponin T Baseline 7 ng/L (0-15) 05/17/21 13:23 Troponin T 120 Minute 7.40 ng/L (0-15) 05/17/21 15:45 Delta Troponin T 0.40 ABS# (0-10) 05/17/21 15:45 Troponin T Hi Sens 6Hr 6.73 ng/L (0-15) 05/17/21 19:15 Troponin T Hi Sens 6Hr Delta -0.27 ng/L (0-12) L 05/17/21 19:15 C-Reactive Protein 95.7 mg/L (0.0-4.9) H 05/17/21 05:19 NT-Pro-B Natriuret Pep 469 pg/mL (0-125) H 05/18/21 06:39 Total Protein 6.0 g/dL (6.6-8.7) L 05/21/21 04:41 Albumin 2.3 g/dL (3.5-5.2) L 05/21/21 04:41 Globulin 3.7 g/dL (1.3-4.6) 05/21/21 04:41 Procalcitonin 0.04 ng/mL (0-0.5) 05/19/21 04:25 Random Vancomycin 7.6 ug/mL (20.0-40.0) L 05/21/21 04:41 Micro: Microbiology 05/20/21 17:50 MOUSTAPHA Preparation - Final Sputum - Endotracheal Wash 05/19/21 13:30 Blood Culture - Preliminary Blood NEGATIVE TO DATE 05/19/21 13:32 Blood Culture - Preliminary Blood NEGATIVE TO DATE 05/19/21 11:25 Gram Stain - Final Sputum - Endotracheal Tube Aspirate Sputum Culture - Preliminary A&P Assessment and plan (1) Acute respiratory failure with hypoxia: Status: Acute (2) Acute respiratory distress syndrome (ARDS) due to 2019 novel coronavirus: Status: Acute (3) JAREN (acute kidney injury): Status: Acute #Acute hypoxic respiratory failure secondary to ARDS due to COVID-19 pneumonia #JAREN-secondary to COVID-19 #Deranged LFTs likely secondary to COVID-19 #Seizure-like activity immediately post intubation-likely secondary to hypoxia -CT head on 08/2020-negative -Admitted 05/13/2021-Covid test + 05/13/2021 -Initially on high flow nasal cannula-worsening FiO2 requirements and intubated on 05/19/2020 -Completed 5-day course of remdesivir and currently on dexamethasone 6 mg daily -Discontinued baricitinib as there is high suspicion for bacterial pneumonia -CTA ruled out PE which showed bilateral lower lobe infiltrates -S/p 1 proning session on 05/19/2020-FiO2 requirement down to 50% and PEEP 10 -On minimal vent settings with FiO2 35% and PEEP of 10-ABG today 7.3 // on /03/14 5% -Patient is net -100 cc over last 24 hours with good urine output and sodium 134-we will DC IVF -Downtrending leukocytosis today 27K; -Discontinued Levaquin and started on vancomycin and imipenem on 05/19/2020-today is day 3 of broad-spectrum antibiotic coverage -BAL cultures pending -If his oxygen requirements remain the same throughout today then we will plan for awakening and breathing trial tomorrow -Currently sedated with fentanyl 100 MCG gtt. and propofol 25 -Plan is to taper off fentanyl and use more propofol for sedation and prepare for awakening trial -Plan is to start tube feeding today at the rate of 30 cc/h -S/p bronchoscopy 05/20/2020 evening showed airway mucosa with black pigmentation and mucopurulent secretions predominantly on right side subsegments -currently off pressors -Patient has JAREN 1.5 -improved with IVF; potassium 5.1 -Sugars are well controlled -Deranged LFT secondary to COVID-19 pneumonitis-currently will monitor -Prognosis guarded -DVT prophylaxis Lovenox - updated Recommendations conveyed to hospitalist, RN, RT taking care of the patient Still need close ICU monitoring Attestations Medical Necessity Statement*: Needs continued hospitalization secondary respiratory failure from COVID-19 pneumonia. Time Spent in Patient Care: Greater than 35 minutes (>than 50% of time spent in counselling and/or direct pt care on unit). Critical Care Time: The high probability of a clinically significant, sudden or life threatening deterioration of the patient's [Pulmonary and neurologic] system(s) required my full and direct attention, intervention and personal management. The critical care time is as shown. This time is in addition to time spent performing any reported procedures but includes the following: [x] Data and vital sign review and interpretation [x] Patient assessment, examination and intervention [x] Documentation [x] Medication orders and management Critical Care Time (min): 45 Coding Level of Care Code Established Pt Acute Collection Systems Technician for g Fwd Patient Type Established History Comprehensive Exam Comprehensive Medical Decision Making High Complexity Diagnoses Acute respiratory failure with hypoxia J96.01 Acute respiratory distress syndrome (ARDS) due to 2019 novel coronavirus U07.1; J80 JAREN (acute kidney injury) N17.9 Time Spent (min) 45
[2021-05-21] MEDS: sennosides-docusate Tablet 1 TAB PO (09:57)
--- NOTE | 2021-05-21 10:56 | PC.RESP ---
RT Shift Note Frequent safety and respiratory rounds continue. Orders completed as indicated. Patient monitored pre and post treatments throughout shift. Patient [Did.] tolerate treatments appropriately. Condition [.DidNotChange]. Patient and/or industrial relations representative educated on respiratory treatment and medications. Patient and/or industrial relations representative [unable to comprehend]. Will continue to monitor patient progress.
--- NOTE | 2021-05-21 11:07 | PC.NUTR ---
When medically appropriate, recommend consideration of Jevity 1.2 @ 10 ml/hr and advancing as tolerated to goal rate of 45 mls/hr with FW flushes of 120 ml Q4H or per MD discretion. This will provide 80-90% Pt's estimated calorie and protein needs. Further details in RD assessment.
[2021-05-21] MEDS: dexamethasone 10 mg/mL INJ 6 MG IVP (12:05)
[2021-05-21] MEDS: vancomycin 1,250 MG/250 ML PIGGYBACK 200 MG IV ×2 (12:06→23:57)
--- NOTE | 2021-05-21 16:06 | PC.SOCIAL ---
IMM UPDATED IMM dated and initialed and copy placed in pts room
--- NOTE | 2021-05-21 20:32 | PC.NURSE ---
Report received from laura MCMANUS. Patient is sedated on fentanyl and propofol gtt's infusing to R femoral CVL. Patient is intubated and is tolerating the vent well. Tube feeds noted, residual checked, and increased tube feeding rate at this time. Combs catheter noted and is draining well. All vital signs are stable. No signs or symptoms of distress noted. Will continue to monitor.
[2021-05-21] MEDS: enoxaparin 40 mg/0.4 mL Syringe SUBCUT (23:57)
[2021-05-22] VITALS (42 sets, daily range): BP systolic 119–166; BP diastolic 60–90; PULSE 55–73; RESP 19; TEMP 36.6–37.4; O2SAT 89–100
[2021-05-22] MEDS: ipratropium-albuterol 3 mL Neb INHALATION ×4 (03:12→20:22)
[2021-05-22] MEDS: propofol 1,000 MG/100 ML INJ 21.77 MG IV ×2 (04:20→08:29)
--- NOTE | 2021-05-22 05:24 | PC.NURSE ---
Shift note Patient's night was uneventful. Vent settings remain the same. Increased propofol gtt for patient opening eyes and reaching for ETT (Please see mar for details) Frequent rounds and critical care assessments completed throughout the night. All vital signs remain stable and no signs of distress are noted.
[2021-05-22 05:41] LABS: ABG PCO2 42.4 mmHg (35-45); ABG PH Result 7.39 (7.35-7.45); Arterial Blood Gas Hematocrit 57.5 % (42-52); Blood Gas Allen Test Pos; Blood Gas Operator Identificat JB; Blood Gas Sample Site Brachial, right; Blood Gas Sample Type Arterial; HCO3 ABG 25.3 mmol/L (22-26); Oxygen Device VENT; PO2 ABG 75.2 mmHg (80.0-100.0)
[2021-05-22 05:44] LABS: Basophils # 0.1 10^3/uL (0.0-0.1); Basophils % 0.2 %; Hematocrit 39.1 % (42.0-52.0); Hemoglobin 12.6 g/dL (11.7-16.6); Lymphocytes # 0.5 10^3/uL (0.8-4.8); Lymphocytes % 1.7 %; Mean Corpuscular HGB Conc 32.2 g/dL (30.0-36.0); Mean Corpuscular Hemoglobin 30.4 pg (28.0-34.0); Mean Corpuscular Volume 94.4 fl (80-94); Mean Platelet Volume 10.5 fL (7.4-10.4); Monocytes # 0.6 10^3/uL (0.2-0.9); Monocytes % 2.2 %; Neutrophils # 24.29 10^3/uL (1.8-7.7); Neutrophils % 91.1 %; Nucleated Red Blood Cells % 0 %; Platelet Count 384 10^3/cmm (130-400); Red Blood Count 4.14 10^6/uL (4.1-5.3); Red Cell Distribution Width 14.4 % (12.1-15.1); White Blood Count 26.7 10^3/uL (4.0-10.0)
[2021-05-22 06:53] LABS: Alanine Aminotransferase 24 U/L (0-41); Albumin Level 2.6 g/dL (3.5-5.2); Alkaline Phosphatase 104 IU/L (40-130); Anion Gap 19.3 (5-19); Aspartate Amino Transferase 25 U/L (0-40); Blood Urea Nitrogen 33 mg/dL (8-23); Calcium 8.3 mg/dL (8.5-10.5); Carbon Dioxide 20 mmol/L (22-29); Chloride 100 mmol/L (98-107); Creatinine Clr Calc Pharmacy 93.3297; Globulin 3.4 g/dL (1.3-4.6); Glucose 183 mg/dL (65-115); Magnesium 2.7 mg/dL (1.7-2.3); Osmolality Calculated 290 mOsm/kg (285-295); Potassium 5.3 mmol/L (3.5-5.1); Sodium 134 mmol/L (136-145); Total Bilirubin 0.3 mg/dL (0.15-1.2)
--- NOTE | 2021-05-22 07:00 | XR_ITS ---
WS: [id number] Portable AP semiupright chest, 05/22/2021 Clinical Data: resp failure Comparison: Portable chest, 05/21/2021. Findings: The patchy bilateral pulmonary opacities remain the same. The heart is normal. The nasogast diana tube and endotracheal tube remain in the same position. Monitor leads are on the chest wall. XR/XR chest 1V portable [id number] Impression: No change from yesterday's chest x-ray.
[2021-05-22] MEDS: sennosides-docusate Tablet 1 TAB PO (08:29)
[2021-05-22] MEDS: FUROsemide 10 mg/mL SDV 4mL 40 MG IVP (08:29)
--- NOTE | 2021-05-22 09:59 | PM.PN ---
Subjective Subjective: Interval history: Bennie is sedated on the ventilator. Nursing has no new concerns. FiO2 had to be increased to 50%. Medications: Reviewed: Yes Vitals/I&O/Wt Last Vital Signs Temp 98.3 F 05/22/21 07:00 Pulse 70 05/22/21 09:00 Resp 19 H 05/22/21 09:46 BP 129/75 05/22/21 09:00 Pulse Ox 94 05/22/21 09:46 05/21/21 05/22/21 05/22/21 22:59 06:59 14:59 Intake Total 375.82 / 906.118 962.650 / 1868.768 90.346 / 90.346 Output Total 500 / 850 400 / 1250 Balance -124.18 / 56.118 562.650 / 618.768 90.346 / 90.346 Weight last 48 hrs Weight 85.275 kg Weight 84.113 kg Physical Exam Narrative: EXAM NARRATIVE: General exam is a sedated male in no distress Neck is supple Cardiovascular regular rate and rhythm, heart rate now approximately 100 Lungs relatively clear Abdomen is soft. Nondistended. Positive bowel sounds demonstrates Combs. Fair amount of urine in the bag Extremities no cyanosis clubbing or kayla Data : 05/22/21 04:30 05/22/21 04:30 Micro: Microbiology 05/19/21 11:25 Gram Stain - Final Sputum - Endotracheal Tube Aspirate Sputum Culture - Final 05/20/21 17:50 Gram Stain - Final Lung Right Middle Lobe 05/20/21 17:50 MOUSTAPHA Preparation - Final Sputum - Endotracheal Wash A&P Assessment and plan (1) Acute respiratory failure with hypoxia: Intubated May 19. FiO2 requirement had decreased, unfortunately it is increased up to 50% today. Pulmonary consultation appreciated Sedation with fentanyl, propofol Norepinephrine added for hypotension, wean as tolerated. This has been discontinued currently. CTA was checked. No pulmonary embolism. Status: Acute (2) COVID-19: Remdesivir treatment has been completed Continue dexamethasone Has been receiving baricitinib. This was discontinued secondary to concern of bacterial infection Pulmonary toilet MRSA PCR negative Currently on Primaxin and vancomycin. Was on Levaquin previously. Sputum culture obtained and pending. Bronchoscopy culture pending. MOUSTAPHA prep negative. Procalcitonin negative Repeat CT negative for pulmonary embolism. A dose of Lasix was given this morning per pulmonary secondary to unbalanced ins and outs. Status: Acute Additional A&P Information Seizure-like activity. May be secondary to hypoxia but cannot rule out VICE PRESIDENT RESEARCH event. CT head negative. Was moving all 4 extremities when sedation lessened Acute kidney injury. Continue to monitor closely. This appears to have improved Hypotension expected with sedation, norepinephrine discontinued currently Mild elevation in potassium. Continue to monitor Full code Lovenox for DVT prophylaxis Prognosis guarded. Attestations Medical Necessity Statement*: Needs continued hospitalization for supportive care and treatment of severe COVID-19 pneumonia required endotracheal intubation Critical Care Time: The high probability of a clinically significant, sudden or life threatening deterioration of the patient's [pulmonary, neurologic] system(s) required my full and direct attention, intervention and personal management. The critical care time is as shown. 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
[2021-05-22 10:57] LABS: Vancomycin Trough 17.3 ug/mL (10-15)
[2021-05-22] MEDS: vancomycin 1,250 MG/250 ML PIGGYBACK 200 MG IV ×2 (11:04→23:20)
[2021-05-22] MEDS: propofol 1,000 MG/100 ML INJ 27.22 MG IV ×3 (11:36→18:24)
[2021-05-22] MEDS: dexamethasone 10 mg/mL INJ 6 MG IVP (12:50)
[2021-05-22] MEDS: cisatracurium 100 MG in sodium chloride 0.9% 50 ML IV (16:16)
--- NOTE | 2021-05-22 16:40 | PM.PN ---
Subjective Subjective: Interval history: -Patient seen at bedside today -FiO2 requirement went up to 50% -On minimal sedation patient is able to move all his limbs and opening eyes, although not completely following commands -Labs and imaging Reviewed-Still has persistent leukocytosis Medications: Reviewed: Yes Vitals/I&O/Wt Last Vital Signs Temp 98.0 F 05/22/21 11:00 Pulse 72 05/22/21 14:07 Resp 19 H 05/22/21 15:33 BP 131/63 05/22/21 14:00 Pulse Ox 92 05/22/21 15:33 05/22/21 05/22/21 05/22/21 06:59 14:59 22:59 Intake Total 962.650 / 1868.768 618.278 / 618.278 99.353 / 717.631 Output Total 400 / 1250 1300 / 1300 Balance 562.650 / 618.768 -681.722 / -681.722 99.353 / -582.369 Weight last 48 hrs Weight 188 lb Weight 185 lb 7 oz Physical Exam Narrative: EXAM NARRATIVE: PHYSICAL EXAM: General: lying in bed, sedated and intubated. HEENT:NCAT, PERRLA, EOMI Neck: Supple Lungs: Bilateral diffuse coarse crepitations, Heart: s1/s2, RRR Abd: soft, NT, ND, BS + Normoactive Extremities: No edema INSTRUCTIONAL MATERIAL DIRECTOR: sedated and limited INSTRUCTIONAL MATERIAL DIRECTOR exam possible. SKIN: no rash LDA: # CVC: Left femoral central line 05/19/2021 Data : 05/22/21 04:30 05/22/21 04:30 Other Labs: Radiology Impressions Chest CTA 05/19/21 12:38 IMPRESSION: 1. Extensive, bilateral areas of ground-glass opacification in both lungs lungs. The severity of the ground-glass opacification has decreased, however is more diffuse compared with the previous study. Findings are suspicious for atypical pneumonia, including viral organisms. There is also interval development of bilateral lower lobe alveolar airspace disease with air bronchograms and patchy alveolar airspace disease in the right upper lobe, a superimposed bacterial pneumonia cannot be ruled out. Recommend followup chest imaging to insure resolution of these findings. 2. No evidence for pulmonary embolism. 3. There is an endotracheal tube with the tip 3.3 cm above the rell. 4. There is an enteric tube with the tip in the descending duodenum. 5. Cholelithiasis. 6. Incidental/nonacute findings are listed in the report. Head CT 05/19/21 12:38 IMPRESSION: No acute intracranial abnormality. Chest X-Ray 05/22/21 07:00 Impression: No change from yesterday's chest x-ray. Laboratory Results WBC 26.7 10^3/uL (4.0-10.0) H 05/22/21 04:30 RBC 4.14 10^6/uL (4.1-5.3) 05/22/21 04:30 Hgb 12.6 g/dL (11.7-16.6) 05/22/21 04:30 Hct 39.1 % (42.0-52.0) L 05/22/21 04:30 MCV 94.4 fl (80-94) H 05/22/21 04:30 MCH 30.4 pg (28.0-34.0) 05/22/21 04:30 MCHC 32.2 g/dL (30.0-36.0) 05/22/21 04:30 RDW 14.4 % (12.1-15.1) 05/22/21 04:30 Plt Count 384 10^3/cmm (130-400) 05/22/21 04:30 MPV 10.5 fL (7.4-10.4) H 05/22/21 04:30 Neut % (Auto) 91.1 % 05/22/21 04:30 Lymph % (Auto) 1.7 % 05/22/21 04:30 Alfalfa % (Auto) 2.2 % 05/22/21 04:30 Eos % (Auto) 0.0 % 05/22/21 04:30 Baso % (Auto) 0.2 % 05/22/21 04:30 Neut # (Auto) 24.29 10^3/uL (1.8-7.7) H 05/22/21 04:30 Lymph # (Auto) 0.5 10^3/uL (0.8-4.8) L 05/22/21 04:30 Alfalfa # (Auto) 0.6 10^3/uL (0.2-0.9) 05/22/21 04:30 Eos # (Auto) 0.0 10^3/uL (0.0-0.8) 05/22/21 04:30 Baso # (Auto) 0.1 10^3/uL (0.0-0.1) 05/22/21 04:30 Nucleated RBC % (auto) 0 % 05/22/21 04:30 Nucleated RBCs # 0.0 /100WBC 05/22/21 04:30 D-Dimer 2.76 ug/mIFEU (0-0.59) H 05/19/21 09:19 Specimen Type Arterial 05/22/21 05:00 Sample Site Brachial, right 05/22/21 05:00 ABG pH 7.39 (7.35-7.45) 05/22/21 05:00 ABG pCO2 42.4 mmHg (35-45) 05/22/21 05:00 ABG pO2 75.2 mmHg (80.0-100.0) L 05/22/21 05:00 ABG HCO3 25.3 mmol/L (22-26) 05/22/21 05:00 ABG O2 Saturation 98.0 05/19/21 16:52 ABG Base Excess 0.0 mmol/L (-2.0-2.0) 05/22/21 05:00 Chris Test Pos 05/22/21 05:00 A-a O2 Gradient 69.2 mmHg (5-10) H 05/19/21 16:52 Hematocrit 57.5 % (42-52) H 05/22/21 05:00 Hgb O2 Saturation 97.2 % (95-100) 05/19/21 16:52 Carboxyhemoglobin < 0.0 %THgb (0.4-20.1) L 05/19/21 16:52 Methemoglobin 1.0 % (0.4-1.5) 05/19/21 16:52 Total Hemoglobin 16.4 g/dL (14-18) 05/19/21 16:52 Sodium 136.0 mmol/L (131-143) 05/19/21 16:52 Potassium 4.8 mmol/L (3.5-5.0) 05/19/21 16:52 Glucose 139.0 mg/dL (70-115) H 05/19/21 16:52 Ionized Calcium 1.1 mmol/L (1.1-1.4) 05/19/21 16:52 O2 Delivery Device Vent 05/22/21 05:00 O2 Liters/Min 35.0 % 05/18/21 04:00 Mechanical Rate 18.0 05/19/21 12:10 FiO2 50.0 % 05/22/21 05:00 Tidal Volume 0.50 05/22/21 05:00 PEEP 10.0 cmH20 05/22/21 05:00 Office Administration ID Norris 05/22/21 05:00 Sodium 134 mmol/L (136-145) L 05/22/21 04:30 Potassium 5.3 mmol/L (3.5-5.1) H 05/22/21 04:30 Chloride 100 mmol/L (98-107) 05/22/21 04:30 Carbon Dioxide 20 mmol/L (22-29) L 05/22/21 04:30 Anion Gap 19.3 (5-19) H 05/22/21 04:30 BUN 33 mg/dL (8-23) H 05/22/21 04:30 Creatinine 0.8 mg/dL (0.7-1.2) 05/22/21 04:30 GFR Calculation Not Reportable 05/22/21 04:30 Glucose 183 mg/dL (65-115) H 05/22/21 04:30 POC Glucose 200 mg/dL (70-110) H 05/17/21 20:57 Calculated Osmolality 290 mOsm/kg (285-295) 05/22/21 04:30 Lactic Acid 1.7 mmol/L (0.5-2.2) 05/14/21 16:00 Calcium 8.3 mg/dL (8.5-10.5) L 05/22/21 04:30 Magnesium 2.7 mg/dL (1.7-2.3) H 05/22/21 04:30 Total Bilirubin 0.3 mg/dL (0.15-1.2) 05/22/21 04:30 AST 25 U/L (0-40) 05/22/21 04:30 ALT 24 U/L (0-41) 05/22/21 04:30 Alkaline Phosphatase 104 IU/L (40-130) 05/22/21 04:30 Lactate Dehydrogenase 613 U/L (135-225) H 05/18/21 06:39 Troponin T Gen 5 ng/L 9 ng/L (0-15) 05/16/21 15:30 Troponin T Baseline 7 ng/L (0-15) 05/17/21 13:23 Troponin T 120 Minute 7.40 ng/L (0-15) 05/17/21 15:45 Delta Troponin T 0.40 ABS# (0-10) 05/17/21 15:45 Troponin T Hi Sens 6Hr 6.73 ng/L (0-15) 05/17/21 19:15 Troponin T Hi Sens 6Hr Delta -0.27 ng/L (0-12) L 05/17/21 19:15 C-Reactive Protein 95.7 mg/L (0.0-4.9) H 05/17/21 05:19 NT-Pro-B Natriuret Pep 469 pg/mL (0-125) H 05/18/21 06:39 Total Protein 6.0 g/dL (6.6-8.7) L 05/22/21 04:30 Albumin 2.6 g/dL (3.5-5.2) L 05/22/21 04:30 Globulin 3.4 g/dL (1.3-4.6) 05/22/21 04:30 Procalcitonin 0.04 ng/mL (0-0.5) 05/19/21 04:25 Vancomycin Trough 17.3 ug/mL (10-15) H 05/22/21 10:20 Random Vancomycin 7.6 ug/mL (20.0-40.0) L 05/21/21 04:41 Micro: Microbiology 05/20/21 17:50 Gram Stain - Final Lung Right Middle Lobe Bronchoalveolar Lavage Culture - Preliminary Yeast 05/19/21 11:25 Gram Stain - Final Sputum - Endotracheal Tube Aspirate Sputum Culture - Final A&P Assessment and plan (1) Acute respiratory failure with hypoxia: Status: Acute (2) Acute respiratory distress syndrome (ARDS) due to 2019 novel coronavirus: Status: Acute (3) JAREN (acute kidney injury): Status: Acute #Acute hypoxic respiratory failure secondary to ARDS due to COVID-19 pneumonia #JAREN-secondary to COVID-19 #Deranged LFTs likely secondary to COVID-19 #Seizure-like activity immediately post intubation-likely secondary to hypoxia -CT head on 08/2020-negative -Admitted 05/13/2021-Covid test + 05/13/2021 -Initially on high flow nasal cannula-worsening FiO2 requirements and intubated on 05/19/2020 -Completed 5-day course of remdesivir and currently on dexamethasone 6 mg daily -Discontinued baricitinib as there is high suspicion for bacterial pneumonia -CTA ruled out PE which showed bilateral lower lobe infiltrates -S/p 1 proning session on 05/19/2020;-ABG today 7.3 9/42/75/25 on 500/10/50 percent -FiO2 requirement down Went up to 50% From 35%We will plan for Second proning session today -Patient is net +600 cc over last 24 hours with good urine output and sodium 134 -Lasix 40 mg given today -Downtrending leukocytosis today 27K; on vancomycin and imipenem on 05/19/2020 -today is day 4 of broad-spectrum antibiotic coverage -BAL cultures are growing yeast-identification pending -Currently sedated with fentanyl 100 MCG gtt. and propofol 25 -tube feeding at the rate of 30 cc/h-Hold while proning -S/p bronchoscopy 05/20/2020 evening showed airway mucosa with black pigmentation and mucopurulent secretions predominantly on right side subsegments -currently off pressors -Patient has JAREN 1.5 -improved with IVF; potassium 5.3; Will repeat BMP today evening and if still high will give Kayexalate 30 -Sugars are well controlled -Deranged LFT secondary to COVID-19 pneumonitis-Normalized -Prognosis guarded -DVT prophylaxis Lovenox - updated Recommendations conveyed to hospitalist, RN, RT taking care of the patient Still need close ICU monitoring Attestations Medical Necessity Statement*: Needs continued hospitalization secondary respiratory failure from COVID-19 pneumonia. Time Spent in Patient Care: Greater than 35 minutes (>than 50% of time spent in counselling and/or direct pt care on unit). Critical Care Time: The high probability of a clinically significant, sudden or life threatening deterioration of the patient's [Pulmonary and neurologic] system(s) required my full and direct attention, intervention and personal management. The critical care time is as shown. This time is in addition to time spent performing any reported procedures but includes the following: [x] Data and vital sign review and interpretation [x] Patient assessment, examination and intervention [x] Documentation [x] Medication orders and management Critical Care Time (min): 45 Coding Level of Care Code Established Pt Acute Community Living Instructor for Chg Fwd Patient Type Established History Comprehensive Exam Comprehensive Medical Decision Making High Complexity Diagnoses Acute respiratory failure with hypoxia J96.01 Acute respiratory distress syndrome (ARDS) due to 2019 novel coronavirus U07.1; J80 JAREN (acute kidney injury) N17.9 Time Spent (min) 45
[2021-05-22 18:22] LABS: Anion Gap 18.1 (5-19); Blood Urea Nitrogen 33 mg/dL (8-23); Carbon Dioxide 22 mmol/L (22-29); Chloride 100 mmol/L (98-107); Creatinine Clr Calc Pharmacy 93.3297; Glucose 144 mg/dL (65-115); Osmolality Calculated 290 mOsm/kg (285-295); Potassium 5.1 mmol/L (3.5-5.1); Sodium 135 mmol/L (136-145)
--- NOTE | 2021-05-22 18:43 | PC.NURSE ---
[address] Duffy. Orders to hold tube feeding and start Nimbex drip in preparation for proning. Tube feeding stopped at this time. 1800 Patient turned to the pone position.
[2021-05-22] MEDS: propofol 1,000 MG/100 ML INJ 32.66 MG IV (21:31)
[2021-05-22] MEDS: enoxaparin 40 mg/0.4 mL Syringe SUBCUT (21:31)
[2021-05-23] VITALS (32 sets, daily range): BP systolic 87–152; BP diastolic 57–81; PULSE 48–83; RESP 16–22; TEMP 36.1–36.7; O2SAT 79–98
[2021-05-23] MEDS: propofol 1,000 MG/100 ML INJ 29.94 MG IV (00:57)
[2021-05-23] MEDS: ipratropium-albuterol 3 mL Neb INHALATION ×4 (03:01→20:27)
[2021-05-23 04:21] LABS: Basophils % 0.2 %; Hematocrit 37.9 % (42.0-52.0); Hemoglobin 12.4 g/dL (11.7-16.6); Lymphocytes # 0.5 10^3/uL (0.8-4.8); Lymphocytes % 2.4 %; Mean Corpuscular HGB Conc 32.7 g/dL (30.0-36.0); Mean Corpuscular Hemoglobin 30.5 pg (28.0-34.0); Mean Corpuscular Volume 93.3 fl (80-94); Mean Platelet Volume 10.3 fL (7.4-10.4); Monocytes # 0.7 10^3/uL (0.2-0.9); Monocytes % 3.2 %; Neutrophils # 19.05 10^3/uL (1.8-7.7); Neutrophils % 89.5 %; Nucleated Red Blood Cells % 0 %; Platelet Count 407 10^3/cmm (130-400); Red Blood Count 4.06 10^6/uL (4.1-5.3); Red Cell Distribution Width 14.1 % (12.1-15.1); White Blood Count 21.3 10^3/uL (4.0-10.0)
[2021-05-23 04:35] LABS: Alanine Aminotransferase 21 U/L (0-41); Albumin Level 2.6 g/dL (3.5-5.2); Alkaline Phosphatase 101 IU/L (40-130); Anion Gap 13.9 (5-19); Aspartate Amino Transferase 40 U/L (0-40); Blood Urea Nitrogen 29 mg/dL (8-23); Calcium 7.2 mg/dL (8.5-10.5); Carbon Dioxide 25 mmol/L (22-29); Chloride 100 mmol/L (98-107); Glucose 117 mg/dL (65-115); Osmolality Calculated 285 mOsm/kg (285-295); Potassium 4.9 mmol/L (3.5-5.1); Sodium 134 mmol/L (136-145); Total Bilirubin 0.4 mg/dL (0.15-1.2); Total Protein 5.6 g/dL (6.6-8.7)
[2021-05-23 04:36] LABS: Creatinine Clr Calc Pharmacy 93.3297
--- NOTE | 2021-05-23 04:43 | PC.NURSE ---
[employer] [facility] 08/17 68 2200 08/17 46 0100 08/17 38 0300 08/17 40 0400 08/17 61
[2021-05-23 05:10] LABS: ABG PCO2 39.3 mmHg (35-45); ABG PH Result 7.47 (7.35-7.45); Base Excess ABG 4.9 mmol/L (-2.0-2.0); Blood Gas Allen Test Pos; Blood Gas Operator Identificat glc; Blood Gas Sample Site Radial, right; Blood Gas Sample Type Arterial; Blood Gas Tidal Volume 0.45; HCO3 ABG 28.8 mmol/L (22-26); Oxygen Device VENT
[2021-05-23] MEDS: propofol 1,000 MG/100 ML INJ 24.49 MG IV ×2 (05:10→09:17)
[2021-05-23] MEDS: cisatracurium 100 MG in sodium chloride 0.9% 50 ML 6.8 MG IV (06:28)
--- NOTE | 2021-05-23 07:00 | XRR_ITS ---
PROCEDURE INFORMATION: Exam: XR Chest Exam date and time: 05/23/2021 7:00 AM Age: 71 years old Clinical indication: Device placement; Ett placement (vent status); Additional info: Respiratory failure TECHNIQUE: Imaging protocol: XR of the chest. Views: 1 view. COMPARISON: CR XR chest 1V portable [id number] 05/22/2021 5:50 AM FINDINGS: Tubes, catheters and devices: Tip of the ET tube is positioned 3.5 cm superior to the rell. There is a feeding tube in place with the distal fenestration positioned in the right upper quadrant in the expected location of the distal stomach or proximal duodenum. Lungs: There are patchy bilateral pulmonary opacities improved on the right when compared to the prior study. Pleural spaces: Unremarkable. No pleural effusion. No pneumothorax. Heart/Mediastinum: Unremarkable. No cardiomegaly. Bones/joints: Unremarkable. XR/XR chest 1V portable [id number] IMPRESSION: 1. Patchy bilateral pulmonary opacities are improved on the right when compared to the prior study. 2. Tip of the ET tube is positioned 3.5 cm superior to the rell.
[2021-05-23] MEDS: sennosides-docusate Tablet 1 TAB PO (08:37)
--- NOTE | 2021-05-23 10:06 | PC.SOCIAL ---
IMM Update: pg 2 of IMM updated and reviewed w/ patients via telephone.
[2021-05-23] MEDS: vancomycin 1,250 MG/250 ML PIGGYBACK 200 MG IV ×2 (11:16→23:04)
--- NOTE | 2021-05-23 13:02 | PM.PN ---
Subjective Subjective: Interval history: Negative fluid balance Fentanyl at 50, propofol at 40 Nimbex at the bedside Heart rate 49-50, hemodynamically stable FiO2 40% PEEP 10 tidal volume 480 Plan is to do another sedation vacation, supine him and evaluate him tomorrow if we need third proning session No overnight events Nimbex will be turned off once he is supine Vitals/I&O/Wt Last Vital Signs Temp 98.0 F 05/23/21 12:00 Pulse 54 L 05/23/21 12:00 Resp 22 H 05/23/21 09:58 BP 110/73 05/23/21 12:00 Pulse Ox 92 05/23/21 12:00 05/22/21 05/23/21 05/23/21 22:59 06:59 14:59 Intake Total 428.002 / 1046.280 736.376 / 1782.656 450 / 450 Output Total 700 / 2000 1100 / 3100 Balance -271.998 / -953.720 -363.624 / -1317.344 450 / 450 Weight last 48 hrs Weight 81.828 kg Weight 85.275 kg Physical Exam Narrative: EXAM NARRATIVE: Patient was prone Bilateral breath sounds noted without any active crepitation no crackles on posterior lung auscultation Limited exam as he was prone Clinically does look euvolemic Combs catheter draining urine Neuro exam limited Paralyzed and sedated Mechanical ventilator, settings mentioned above Data : 05/23/21 03:53 05/23/21 03:53 Micro: Microbiology 05/20/21 17:50 Gram Stain - Final Lung Right Middle Lobe Bronchoalveolar Lavage Culture - Preliminary Yeast A&P Assessment and plan (1) Acute respiratory distress syndrome (ARDS) due to 2019 novel coronavirus: Status: Acute (2) Acute respiratory failure with hypoxia: Status: Acute (3) Hypoxia: Status: Acute (4) COVID-19: Status: Acute (5) JAREN (acute kidney injury): Status: Acute Additional A&P Information Crop Research Scientist recommended another dose of Lasix FiO2 40%, sedation vacation, will turn off Nimbex once he is supine Status post 2 proning sessions, will reevaluate tomorrow if he would benefit from another proning session Will start tube feeding once he is supine Hypoxia, respiratory failure related to severe ARDS due to COVID-19 Status post bronchoscopy, growing yeast, for now continue broad-spectrum antibiotics as his oxygen requirement increased on Tuesday however afebrile, cultures negative, JAREN improved with IV fluid hydration Potassium improved as well Full code DVT prophylaxis Lovenox Attestations Medical Necessity Statement*: Continue ICU management Time Spent in Patient Care: 16 - 35 minutes Coding Level of Care Code Acute Song Plugger for g Fwd Diagnoses Acute respiratory distress syndrome (ARDS) due to 2019 novel coronavirus U07.1; J80 Acute respiratory failure with hypoxia J96.01 Hypoxia R09.02 COVID-19 U07.1 JAREN (acute kidney injury) N17.9
[2021-05-23] MEDS: dexamethasone 10 mg/mL INJ 6 MG IVP (13:16)
[2021-05-23] MEDS: FUROsemide 10 mg/mL SDV 2mL 20 MG IVP (13:25)
[2021-05-23] MEDS: propofol 1,000 MG/100 ML INJ 16.33 MG IV (14:05)
[2021-05-23] MEDS: dexmedeTOMIDine 0.9 % NaCL 400 MCG/100 ML PREMIX IV (15:05)
--- NOTE | 2021-05-23 16:18 | PM.PN ---
Subjective Subjective: Interval history: Patient seen in prone position today morning -FiO2 down to 40% -Plan is to make him supine later today and monitor on minimal sedation -We will plan to wake him up tomorrow morning and plan for SBT -Labs and imaging reviewed Medications: Reviewed: Yes Vitals/I&O/Wt Last Vital Signs Temp 97.4 F L 05/23/21 16:00 Pulse 60 05/23/21 16:00 Resp 16 05/23/21 16:14 BP 87/61 05/23/21 16:00 Pulse Ox 98 05/23/21 16:14 05/23/21 05/23/21 05/23/21 06:59 14:59 22:59 Intake Total 736.376 / 1782.656 745.302 / 745.302 Output Total 1100 / 3100 Balance -363.624 / -1317.344 745.302 / 745.302 Weight last 48 hrs Weight 180 lb 6.4 oz Weight 188 lb Physical Exam Narrative: EXAM NARRATIVE: PHYSICAL EXAM: General: lying in bed, sedated and intubated. HEENT:NCAT, PERRLA, EOMI Neck: Supple Lungs: Bilateral diffuse coarse crepitations improved, Heart: s1/s2, RRR Abd: soft, NT, ND, BS + Normoactive Extremities: No edema ORDER PROCESSOR: sedated and limited ORDER PROCESSOR exam possible. SKIN: no rash LDA: # CVC: Left femoral central line 05/19/2021 Data : 05/23/21 03:53 05/23/21 03:53 Other Labs: Radiology Impressions Chest CTA 05/19/21 12:38 IMPRESSION: 1. Extensive, bilateral areas of ground-glass opacification in both lungs lungs. The severity of the ground-glass opacification has decreased, however is more diffuse compared with the previous study. Findings are suspicious for atypical pneumonia, including viral organisms. There is also interval development of bilateral lower lobe alveolar airspace disease with air bronchograms and patchy alveolar airspace disease in the right upper lobe, a superimposed bacterial pneumonia cannot be ruled out. Recommend followup chest imaging to insure resolution of these findings. 2. No evidence for pulmonary embolism. 3. There is an endotracheal tube with the tip 3.3 cm above the rell. 4. There is an enteric tube with the tip in the descending duodenum. 5. Cholelithiasis. 6. Incidental/nonacute findings are listed in the report. Head CT 05/19/21 12:38 IMPRESSION: No acute intracranial abnormality. Chest X-Ray 05/23/21 07:00 IMPRESSION: 1. Patchy bilateral pulmonary opacities are improved on the right when compared to the prior study. 2. Tip of the ET tube is positioned 3.5 cm superior to the rell. Laboratory Results WBC 21.3 10^3/uL (4.0-10.0) H 05/23/21 03:53 RBC 4.06 10^6/uL (4.1-5.3) L 05/23/21 03:53 Hgb 12.4 g/dL (11.7-16.6) 05/23/21 03:53 Hct 37.9 % (42.0-52.0) L 05/23/21 03:53 MCV 93.3 fl (80-94) 05/23/21 03:53 MCH 30.5 pg (28.0-34.0) 05/23/21 03:53 MCHC 32.7 g/dL (30.0-36.0) 05/23/21 03:53 RDW 14.1 % (12.1-15.1) 05/23/21 03:53 Plt Count 407 10^3/cmm (130-400) H 05/23/21 03:53 MPV 10.3 fL (7.4-10.4) 05/23/21 03:53 Neut % (Auto) 89.5 % 05/23/21 03:53 Lymph % (Auto) 2.4 % 05/23/21 03:53 Phillips % (Auto) 3.2 % 05/23/21 03:53 Eos % (Auto) 0.0 % 05/23/21 03:53 Baso % (Auto) 0.2 % 05/23/21 03:53 Neut # (Auto) 19.05 10^3/uL (1.8-7.7) H 05/23/21 03:53 Lymph # (Auto) 0.5 10^3/uL (0.8-4.8) L 05/23/21 03:53 Phillips # (Auto) 0.7 10^3/uL (0.2-0.9) 05/23/21 03:53 Eos # (Auto) 0.0 10^3/uL (0.0-0.8) 05/23/21 03:53 Baso # (Auto) 0.0 10^3/uL (0.0-0.1) 05/23/21 03:53 Nucleated RBC % (auto) 0 % 05/23/21 03:53 Nucleated RBCs # 0.0 /100WBC 05/23/21 03:53 D-Dimer 2.76 ug/mIFEU (0-0.59) H 05/19/21 09:19 Specimen Type Arterial 05/23/21 05:00 Sample Site Radial, right 05/23/21 05:00 ABG pH 7.47 (7.35-7.45) H 05/23/21 05:00 ABG pCO2 39.3 mmHg (35-45) 05/23/21 05:00 ABG pO2 100.0 mmHg (80.0-100.0) 05/23/21 05:00 ABG HCO3 28.8 mmol/L (22-26) H 05/23/21 05:00 ABG O2 Saturation 98.0 05/19/21 16:52 ABG Base Excess 4.9 mmol/L (-2.0-2.0) H 05/23/21 05:00 Chris Test Pos 05/23/21 05:00 A-a O2 Gradient 69.2 mmHg (5-10) H 05/19/21 16:52 Hematocrit 41.0 % (42-52) L 05/23/21 05:00 Hgb O2 Saturation 97.2 % (95-100) 05/19/21 16:52 Carboxyhemoglobin < 0.0 %THgb (0.4-20.1) L 05/19/21 16:52 Methemoglobin 1.0 % (0.4-1.5) 05/19/21 16:52 Total Hemoglobin 16.4 g/dL (14-18) 05/19/21 16:52 Sodium 136.0 mmol/L (131-143) 05/19/21 16:52 Potassium 4.8 mmol/L (3.5-5.0) 05/19/21 16:52 Glucose 139.0 mg/dL (70-115) H 05/19/21 16:52 Ionized Calcium 1.1 mmol/L (1.1-1.4) 05/19/21 16:52 O2 Delivery Device Vent 05/23/21 05:00 O2 Liters/Min 35.0 % 05/18/21 04:00 Mechanical Rate 18.0 05/19/21 12:10 FiO2 40.0 % 05/23/21 05:00 Tidal Volume 0.45 05/23/21 05:00 PEEP 10.0 cmH20 05/23/21 05:00 Technical Communication Teacher ID glc 05/23/21 05:00 Sodium 134 mmol/L (136-145) L 05/23/21 03:53 Potassium 4.9 mmol/L (3.5-5.1) 05/23/21 03:53 Chloride 100 mmol/L (98-107) 05/23/21 03:53 Carbon Dioxide 25 mmol/L (22-29) 05/23/21 03:53 Anion Gap 13.9 (5-19) 05/23/21 03:53 BUN 29 mg/dL (8-23) H 05/23/21 03:53 Creatinine 0.6 mg/dL (0.7-1.2) L 05/23/21 03:53 GFR Calculation Not Reportable 05/23/21 03:53 Glucose 117 mg/dL (65-115) H 05/23/21 03:53 POC Glucose 200 mg/dL (70-110) H 05/17/21 20:57 Calculated Osmolality 285 mOsm/kg (285-295) 05/23/21 03:53 Lactic Acid 1.7 mmol/L (0.5-2.2) 05/14/21 16:00 Calcium 7.2 mg/dL (8.5-10.5) L 05/23/21 03:53 Magnesium 2.7 mg/dL (1.7-2.3) H 05/22/21 04:30 Total Bilirubin 0.4 mg/dL (0.15-1.2) 05/23/21 03:53 AST 40 U/L (0-40) 05/23/21 03:53 ALT 21 U/L (0-41) 05/23/21 03:53 Alkaline Phosphatase 101 IU/L (40-130) 05/23/21 03:53 Lactate Dehydrogenase 613 U/L (135-225) H 05/18/21 06:39 Troponin T Gen 5 ng/L 9 ng/L (0-15) 05/16/21 15:30 Troponin T Baseline 7 ng/L (0-15) 05/17/21 13:23 Troponin T 120 Minute 7.40 ng/L (0-15) 05/17/21 15:45 Delta Troponin T 0.40 ABS# (0-10) 05/17/21 15:45 Troponin T Hi Sens 6Hr 6.73 ng/L (0-15) 05/17/21 19:15 Troponin T Hi Sens 6Hr Delta -0.27 ng/L (0-12) L 05/17/21 19:15 C-Reactive Protein 95.7 mg/L (0.0-4.9) H 05/17/21 05:19 NT-Pro-B Natriuret Pep 469 pg/mL (0-125) H 05/18/21 06:39 Total Protein 5.6 g/dL (6.6-8.7) L 05/23/21 03:53 Albumin 2.6 g/dL (3.5-5.2) L 05/23/21 03:53 Globulin 3.0 g/dL (1.3-4.6) 05/23/21 03:53 Procalcitonin 0.04 ng/mL (0-0.5) 05/19/21 04:25 Vancomycin Trough 17.3 ug/mL (10-15) H 05/22/21 10:20 Random Vancomycin 7.6 ug/mL (20.0-40.0) L 05/21/21 04:41 Micro: Microbiology 05/20/21 17:50 Gram Stain - Final Lung Right Middle Lobe Bronchoalveolar Lavage Culture - Preliminary Yeast A&P Assessment and plan (1) Acute respiratory failure with hypoxia: Status: Acute (2) Acute respiratory distress syndrome (ARDS) due to 2019 novel coronavirus: Status: Acute (3) JAREN (acute kidney injury): Status: Acute #Acute hypoxic respiratory failure secondary to ARDS due to COVID-19 pneumonia #JAREN-secondary to COVID-19 #Deranged LFTs likely secondary to COVID-19 #Seizure-like activity immediately post intubation-likely secondary to hypoxia -CT head on 08/2020-negative -Admitted 05/13/2021-Covid test + 05/13/2021 -Initially on high flow nasal cannula-worsening FiO2 requirements and intubated on 05/19/2020 -Completed 5-day course of remdesivir and currently on dexamethasone 6 mg daily -Discontinued baricitinib as there is high suspicion for bacterial pneumonia -CTA ruled out PE which showed bilateral lower lobe infiltrates -S/p 1 proning session on 05/19/2021; 2nd session 05/22/21-ABG today 7.4 7/39/100/28/on 500/10/40 percent -Patient is net -1.3L over last 24 hours with good urine output and sodium 134 -Lasix 40 mg given today -Downtrending leukocytosis today 21K; on vancomycin and imipenem on 05/19/2020 -today is day 5 of broad-spectrum antibiotic coverage -BAL cultures are growing yeast-identification pending -Currently sedated with fentanyl 100 MCG gtt. and propofol 25; Add precedex -tube feeding at the rate of 30 cc/h-Hold while proning -S/p bronchoscopy 05/20/2020 evening showed airway mucosa with black pigmentation and mucopurulent secretions predominantly on right side subsegments -currently off pressors -Patient has JAREN 1.5 -improved with IVF; potassium 4.9; -Sugars are well controlled -Deranged LFT secondary to COVID-19 pneumonitis-Normalized -Prognosis guarded -DVT prophylaxis Lovenox - updated Recommendations conveyed to hospitalist, RN, RT taking care of the patient Still need close ICU monitoring Attestations Medical Necessity Statement*: Needs continued hospitalization secondary respiratory failure from COVID-19 pneumonia. Time Spent in Patient Care: Greater than 35 minutes (>than 50% of time spent in counselling and/or direct pt care on unit). Critical Care Time: The high probability of a clinically significant, sudden or life threatening deterioration of the patient's [Pulmonary and neurologic] system(s) required my full and direct attention, intervention and personal management. The critical care time is as shown. This time is in addition to time spent performing any reported procedures but includes the following: [x] Data and vital sign review and interpretation [x] Patient assessment, examination and intervention [x] Documentation [x] Medication orders and management Critical Care Time (min): 45 Coding Level of Care Code Acute Operational Communication Chief for Brock Barrera Diagnoses Acute respiratory failure with hypoxia J96.01 Acute respiratory distress syndrome (ARDS) due to 2019 novel coronavirus U07.1; J80 JAREN (acute kidney injury) N17.9
[2021-05-23] MEDS: FUROsemide 10 mg/mL SDV 4mL 40 MG IVP (16:44)
--- NOTE | 2021-05-23 17:57 | NUR.SHIFT ---
Shift Note Frequent safety and comfort rounds continue. Orders and nursing care completed as indicated. Patient turned supine at 1000, nimbex turned off. Tube feedings restarted at 1100. At 1415 patient began waking up and attempted to sit up in bed. Dr. Duffy and notified, orders to turn up sedation. See Mar. Patient oxygen level dropped at this time as well, oxygen increased as needed. See RT documentation. Patient had a total of 60mg of lasix and 1600ml out in urine this shift. Plans to possibly extubate patient tomorrow depending on overnight status. Patient monitored for response to intervention and treatments. called and updated on plan of care and education provided included new medications, frequent position changes, oxygen requirements. verbalized understanding, will continue to monitor.
[2021-05-23] MEDS: propofol 1,000 MG/100 ML INJ 21.77 MG IV (18:15)
[2021-05-23] MEDS: enoxaparin 40 mg/0.4 mL Syringe SUBCUT (21:28)
[2021-05-24] VITALS (32 sets, daily range): BP systolic 89–168; BP diastolic 55–124; PULSE 46–74; RESP 16–23; TEMP 36.4–36.7; O2SAT 86–94
[2021-05-24] MEDS: propofol 1,000 MG/100 ML INJ 21.77 MG IV ×4 (00:10→18:51)
[2021-05-24] MEDS: ipratropium-albuterol 3 mL Neb INHALATION ×4 (02:45→20:24)
[2021-05-24] MEDS: propofol 1,000 MG/100 ML INJ 27.22 MG IV ×3 (04:11→23:16)
[2021-05-24 05:23] LABS: Basophils % 0.2 %; Eosinophils % 0.1 %; Hematocrit 40.7 % (42.0-52.0); Lymphocytes # 0.5 10^3/uL (0.8-4.8); Lymphocytes % 2.4 %; Mean Corpuscular HGB Conc 31.9 g/dL (30.0-36.0); Mean Corpuscular Hemoglobin 30.3 pg (28.0-34.0); Mean Corpuscular Volume 94.9 fl (80-94); Mean Platelet Volume 10.2 fL (7.4-10.4); Monocytes # 1.1 10^3/uL (0.2-0.9); Monocytes % 5.8 %; Neutrophils # 16.71 10^3/uL (1.8-7.7); Nucleated Red Blood Cells % 0 %; Platelet Count 465 10^3/cmm (130-400); Red Blood Count 4.29 10^6/uL (4.1-5.3); Red Cell Distribution Width 14.1 % (12.1-15.1); White Blood Count 19.4 10^3/uL (4.0-10.0)
[2021-05-24 05:36] LABS: Anion Gap 14.6 (5-19); Blood Urea Nitrogen 32 mg/dL (8-23); Calcium 7.5 mg/dL (8.5-10.5); Carbon Dioxide 28 mmol/L (22-29); Chloride 97 mmol/L (98-107); Glucose 133 mg/dL (65-115); Osmolality Calculated 289 mOsm/kg (285-295); Phosphorus 4.4 mg/dL (2.5-4.5); Potassium 4.6 mmol/L (3.5-5.1); Sodium 135 mmol/L (136-145)
[2021-05-24 05:38] LABS: Creatine Phosphokinase 477 U/L (39-308)
[2021-05-24 05:39] LABS: ABG PH Result 7.37 (7.35-7.45); Arterial Blood Gas Hematocrit 42.9 % (42-52); Base Excess ABG 5.6 mmol/L (-2.0-2.0); Blood Gas Allen Test Pos; Blood Gas Operator Identificat Anonymous; Blood Gas Sample Site Radial, right; Blood Gas Sample Type Arterial; HCO3 ABG 32.5 mmol/L (22-26); Oxygen Device VENT; PO2 ABG 69.8 mmHg (80.0-100.0)
[2021-05-24 07:23] LABS: Neutrophils % 91.4 %; Slide Review Slide Review Perform
[2021-05-24] MEDS: sennosides-docusate Tablet 1 TAB PO (09:28)
--- NOTE | 2021-05-24 09:31 | PC.NURSE ---
weaning sedation to awaken attempt to extubate today becomes very agitated and attempt to pull lines ect. started low dose precedex at this time
[2021-05-24] MEDS: vancomycin 1,250 MG/250 ML PIGGYBACK 200 MG IV ×2 (11:16→23:18)
--- NOTE | 2021-05-24 12:47 | PM.PN ---
Subjective Subjective: Interval history: FiO2 40%, PaO2 69, plan to discontinue Nimbex, we cannot add Precedex now because of bradycardia we will use Dilaudid on as-needed basis to wean him off fentanyl and propofol Telemetry showing sinus bradycardia, potassium 4.6, check magnesium level Phosphorus 1.4 [id number] Plan to do sedation vacation today weaning off sedatives, start weaning trial tomorrow This morning he was moving his arms Vitals/I&O/Wt Last Vital Signs Temp 98.0 F 05/24/21 04:00 Pulse 47 L 05/24/21 12:00 Resp 16 05/24/21 11:28 BP 107/64 05/24/21 12:00 Pulse Ox 91 05/24/21 12:00 05/23/21 05/24/21 05/24/21 22:59 06:59 14:59 Intake Total 397.071 / 1142.373 779.875 / 1922.248 524.642 / 524.642 Output Total 3300 / 3300 450 / 3750 Balance -2902.929 / -2157.627 329.875 / -1827.752 524.642 / 524.642 Weight last 48 hrs Weight 84.141 kg Weight 81.828 kg Physical Exam Narrative: EXAM NARRATIVE: Sinus bradycardia Without significant hemodynamic instability Clinically looks euvolemic Combs catheter draining concentrated urine Abdomen slightly so [place] pupils Moving his upper extremities Bilateral assisted breaths on Intubated sedated, off paralytics Data : 05/24/21 04:30 05/24/21 04:30 A&P Assessment and plan (1) JAREN (acute kidney injury): Status: Acute (2) Acute respiratory distress syndrome (ARDS) due to 2019 novel coronavirus: Status: Acute (3) Acute respiratory failure with hypoxia: Status: Acute (4) Hypoxia: Status: Acute (5) COVID-19: Status: Acute Additional A&P Information Respiratory failure requiring mechanical ventilation related to COVID-19 Status post 3 cycles of proning Sedation medication, wean off sedatives with use of as needed opioids: Not a good candidate to be on Precedex because of bradycardia, check TSH He is not on any AV phil blocking agent, will request echo, QTC from 400, troponin without significant delta I am anticipating his heart rate will improve today after discontinuation of Nimbex and lower doses of sedatives Status post bronc, growing yeast, he has been kept on empirical antibiotic coverage, his hypoxia and leukocytosis worsened that required escalation of antibiotics by the respiratory support technician currently see their note for further details De-escalate antibiotic tomorrow if leukocytosis below 15,000 Electrolyte abnormality: Improved JAREN: Improved with IV fluid hydration Calcium 7.5 phosphorus normal CPK 477 We will give 1 g calcium gluconate Full code Continue tube feeding Attestations Medical Necessity Statement*: Continue ICU management Time Spent in Patient Care: 16 - 35 minutes Coding Level of Care Code 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
[2021-05-24] MEDS: sodium chloride 0.9% 500 ML IV (13:36)
[2021-05-24] MEDS: dexamethasone 4 mg/mL INJ IVP (13:36)
[2021-05-24 14:15] LABS: Thyroid Stimulating Hormone 0.79 uIU/mL (0.27-4.20)
[2021-05-24] MEDS: calcium gluconate 0.9% NaCL 1 GM/50 ML PREMIX IV (14:22)
--- NOTE | 2021-05-24 14:43 | PC.NURSE ---
had weaned sedation down pt reponds to question shakes head yes and no but refuses to clam down jerking arms in restraints and forming fists.. attempting to reach et tube ect. lines. Explained at lenght need him to calm down to be able to remove et tube, with increased activity sats decrease ...
--- NOTE | 2021-05-24 14:54 | PC.NUTR ---
When medically appropriate and TF is resumed, recommend consideration of Jevity 1.2 goal rate of 40 mls/hr with FW flushes of 120 ml Q4H or per MD discretion. Full details in RD assessment.
--- NOTE | 2021-05-24 17:05 | NUR.SHIFT ---
Shift Note Frequent safety and comfort rounds continue. Orders and/or nursing care completed as indicated. Patient monitored for response to intervention weaning vent). Education provided includes[remain calm and slow breathing]. Patient unable to assist Will continue to monitor. continues to flail in bed ect when sedation is decreased and o2 sats decrease to 88
[2021-05-24] MEDS: enoxaparin 40 mg/0.4 mL Syringe SUBCUT (21:32)
[2021-05-25] VITALS (49 sets, daily range): BP systolic 80–145; BP diastolic 56–90; PULSE 45–102; RESP 16–24; TEMP 36.2–37.4; O2SAT 86–95
[2021-05-25] MEDS: dexmedeTOMIDine 0.9 % NaCL 400 MCG/100 ML PREMIX IV (00:08)
[2021-05-25] MEDS: propofol 1,000 MG/100 ML INJ 27.22 MG IV ×5 (02:21→19:33)
[2021-05-25] MEDS: ipratropium-albuterol 3 mL Neb INHALATION ×4 (03:04→20:10)
[2021-05-25 04:14] LABS: ABG PCO2 49.5 mmHg (35-45); Arterial Blood Gas Hematocrit 40.7 % (42-52); Blood Gas Allen Test Pos; Blood Gas Sample Site Radial, right; Blood Gas Sample Type Arterial; Blood Gas Tidal Volume 0.45; HCO3 ABG 30.9 mmol/L (22-26); Oxygen Device VENT; PO2 ABG 83.4 mmHg (80.0-100.0)
[2021-05-25 05:26] LABS: Basophils % 0.2 %; Eosinophils # 0.1 10^3/uL (0.0-0.8); Eosinophils % 0.5 %; Hematocrit 40.7 % (42.0-52.0); Hemoglobin 12.9 g/dL (11.7-16.6); Lymphocytes # 0.6 10^3/uL (0.8-4.8); Lymphocytes % 3.4 %; Mean Corpuscular HGB Conc 31.7 g/dL (30.0-36.0); Mean Corpuscular Hemoglobin 29.9 pg (28.0-34.0); Mean Corpuscular Volume 94.4 fl (80-94); Mean Platelet Volume 10.3 fL (7.4-10.4); Monocytes # 0.9 10^3/uL (0.2-0.9); Neutrophils # 16.06 10^3/uL (1.8-7.7); Neutrophils % 87.1 %; Nucleated Red Blood Cells % 0 %; Platelet Count 451 10^3/cmm (130-400); Red Blood Count 4.31 10^6/uL (4.1-5.3); Red Cell Distribution Width 13.6 % (12.1-15.1); White Blood Count 18.4 10^3/uL (4.0-10.0)
[2021-05-25 05:39] LABS: Alanine Aminotransferase 21 U/L (0-41); Albumin Level 2.6 g/dL (3.5-5.2); Alkaline Phosphatase 117 IU/L (40-130); Anion Gap 17.5 (5-19); Aspartate Amino Transferase 32 U/L (0-40); Blood Urea Nitrogen 22 mg/dL (8-23); C Reactive Protein 59.9 mg/L (0.0-4.9); Calcium 8.2 mg/dL (8.5-10.5); Carbon Dioxide 24 mmol/L (22-29); Chloride 98 mmol/L (98-107); Globulin 3.5 g/dL (1.3-4.6); Glucose 138 mg/dL (65-115); Magnesium 2.1 mg/dL (1.7-2.3); Osmolality Calculated 286 mOsm/kg (285-295); Potassium 4.5 mmol/L (3.5-5.1); Sodium 135 mmol/L (136-145); Total Bilirubin 0.4 mg/dL (0.15-1.2); Total Protein 6.1 g/dL (6.6-8.7)
[2021-05-25] MEDS: sennosides-docusate Tablet 1 TAB PO (07:49)
[2021-05-25] MEDS: HYDROmorphone 1 mg/mL INJ 1 mL 0.5 MG IVP ×2 (08:12→16:45)
--- NOTE | 2021-05-25 09:24 | PC.CHAP ---
Pastoral Care Encounter/Spiritual Assessment Type of Contact [] Declined orthopedic specialist visit [] Patient/Family/Request visit [] Outpatient visit [] Follow-up visit [] Physician referral [] Code/Alert [x] Routine visit [] Staff referral [] Actively dying [] Patient sleeping [] Family support [] [] Out of room [] Palliative care [] [] Receiving care in room [] Pre-surgical visit [] Trauma [] Long length of stay [x] ICU visit [x] Other: have visited patient everyday during his stay at [facility].. Relational/Emotional Strength [] Patient feels connected with others/family/visitors/staff [] Distress [] Loneliness/isolation [] Abandonment Spirituality of Patient [x] Person of Karla [] Attends Spiritism of their Karla [] Believes in Prayer [] Reads Bible or Church materials [] There are Spiritual issues to be addressed Valet Runner Interventions [x] Prayer [] Active listening [] Non-anxious presence [] Spiritual/emotional support [] Crisis/trauma care [] Spiritual counseling [] Bereavement support [] Provided bereavement packet [] Provided Bible/devotional materials [] Provided toy/stuffed animal, coloring book to patient or family member [] Provided Communion [] Anointing/[place] [] Salvation [x] Completed spiritual assessment [] Other: Impact on Illness or Injury [] Angry [] Fearful [] Anxious [] Often cries [] Exhaustion [] Unable to work [] Unable to attend shinto [] Unable to walk/stand [] Unable to read [] Unable to drive [] Unable to eat/drink [] Unable to sleep [] Unable to be with family [] Patient intubated [] Other: Summary Time spent with patient
--- NOTE | 2021-05-25 09:55 | PC.SOCIAL ---
IMM updatd IMM dated and initialed and copy placed in chart. and copy placed in pts room
[2021-05-25 10:53] LABS: Vancomycin Trough 18.5 ug/mL (10-15)
[2021-05-25] MEDS: vancomycin 1,250 MG/250 ML PIGGYBACK 200 MG IV ×2 (11:46→22:38)
[2021-05-25] MEDS: dexamethasone 4 mg/mL INJ IVP (14:19)
--- NOTE | 2021-05-25 14:28 | ECG_ITS ---
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 Measurements Intervals [place] Rate: 114 P: 48 OR: 190 QRS: 40 QRSD: 84 T: 46 QT: 330 QTc: 456 Interpretive Statements SINUS TACHYCARDIA MODERATE ST DEPRESSION [0.05+ mV ST DEPRESSION] Compared to ECG 05/17/2021 17:57:53 ST (T wave) deviation now present Sinus bradycardia no longer present T-wave abnormality no longer present Electronically Signed On 05-26-2021 5:15:41 RETANNER by Ashley Salcedo M.D. [id number]
--- NOTE | 2021-05-25 14:28 | XR_ITS ---
WS: [id number] XR chest 1V portable [id number] REASON FOR EXAM: respiratory failure FINDINGS: Endotracheal tube and nasogastric tube remain in position. The tip of the nasogastric tube is not gisel ntified on this examination but is beyond the fundus of the stomach. The bilateral patchy lung opacities are increased compared to the examination of 05/23/2021. No other interval change or new finding. XR/XR chest 1V portable [id number] IMPRESSION: Presumed progression of subacute pneumonitis.
--- NOTE | 2021-05-25 14:31 | P.PN_ITS ---
Subjective Subjective: Interval history: The patient was seen and examined. He is on 50% FiO2. The patient appears to be easily agitated and not following any command. Medications: Reviewed: Yes Vitals/I&O/Wt Last Vital Signs Temp 97.7 F 05/25/21 08:00 Pulse 90 05/25/21 14:10 Resp 19 H 05/25/21 14:10 BP 104/63 05/25/21 08:00 Pulse Ox 90 05/25/21 14:10 05/24/21 05/25/21 05/25/21 22:59 06:59 14:59 Intake Total 263.496 / 0062.518 0687.907 / 3042.878 549.625 / 549.625 Output Total 800 / 800 1000 / 1800 Balance -536.504 / 734.971 507.907 / 1242.878 549.625 / 549.625 Weight last 48 hrs Weight 187 lb 9.6 oz Weight 185 lb 8 oz Physical Exam Narrative: EXAM NARRATIVE: General: Patient is intubated and sedated Respiratory: Auscultation: Minimal crackles at bilateral lung bases, no wheezing, occasional rhonchi Cardiovascular: Regular rate and rhythm, S1-S2 present, no murmur, no peripheral edema. Abdomen: Soft, nondistended, positive bowel sound Skin: No rash Neuro: Moving all extremities spontaneously, no focal deficit, unable to assess neuro status more than that. Data : 05/25/21 04:50 05/25/21 04:50 Micro: Microbiology 05/20/21 17:50 MOUSTAPHA Preparation - Final Sputum - Endotracheal Wash 05/20/21 17:50 Gram Stain - Final Lung Right Middle Lobe Bronchoalveolar Lavage Culture - Final Trena albicans 05/19/21 13:30 Blood Culture - Final Blood NO GROWTH AFTER 5 DAYS 05/19/21 13:32 Blood Culture - Final Blood NO GROWTH AFTER 5 DAYS Attestation for Other Data: I personally reviewed and interpreted the following: Other data: I have reviewed the patient's laboratory, microbiologic and radiolo gic data. The bronchoalveolar lavage is growing Trena. A&P Assessment and plan (1) Acute respiratory distress syndrome (ARDS) due to 2019 novel coronavirus: This is 71-year-old gentleman with severe COVID-19. The patient is currently on 50% FiO2. He has been treated for a secondary bacterial infection with broad-spectrum antibiotic. I believe the patient will be ready for extubation in the near future. However, the primary deterrent to that is his mental status. We have tried with Precedex however the patient became very bradycardic. His QTC from previous EKG was 400 ms. I am going to obtain an EKG today and start the patient on Seroquel 25 mg twice daily. I am obtaining a chest x-ray today. We will try the patient with PSV when his mental status is somewhat meaningful. I am hopeful to extubate the patient within the next 24 to 48 hours. Status: Acute (2) Acute respiratory failure with hypoxia: See above Status: Acute (3) JAREN (acute kidney injury): This is resolved completely. 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
--- NOTE | 2021-05-25 15:13 | PM.PN ---
Subjective Subjective: Interval history: Patient is on FiO2 50%, awakening trial was done, he was able to open his eyes to verbal command, he was complaining of pain in his throat, drowsy, on propofol and fentanyl however he was able to squeeze my hands and open his eyes on command Ask RT to do awakening trials twice in a day in order to prepare him for extubation in next 24 hours Machinist Outside recommended addition of Seroquel, I have given him Dilaudid to wean him off sedative agents as well Vitals/I&O/Wt Last Vital Signs Temp 97.7 F 05/25/21 08:00 Pulse 97 05/25/21 15:00 Resp 19 H 05/25/21 14:10 BP 122/77 05/25/21 15:00 Pulse Ox 87 L 05/25/21 15:00 05/25/21 05/25/21 05/25/21 06:59 14:59 22:59 Intake Total 1507.907 / 3042.878 549.625 / 549.625 Output Total 1000 / 1800 Balance 507.907 / 1242.878 549.625 / 549.625 Weight last 48 hrs Weight 85.094 kg Weight 84.141 kg Physical Exam Narrative: EXAM NARRATIVE: Patient intubated and sent Fentanyl at 75 propofol at 50 FiO2 50% PEEP 10 Able to follow commands to some extent Drowsy secondary to sedation Is moving all of his extremities Combs catheter draining concentrated urine Looks euvolemic Bilateral assisted breath sounds S1, S2 no murmur, Data : 05/25/21 04:50 05/25/21 04:50 Micro: Microbiology 05/20/21 17:50 MOUSTAPHA Preparation - Final Sputum - Endotracheal Wash 05/20/21 17:50 Gram Stain - Final Lung Right Middle Lobe Bronchoalveolar Lavage Culture - Final Trena albicans 05/19/21 13:30 Blood Culture - Final Blood NO GROWTH AFTER 5 DAYS 05/19/21 13:32 Blood Culture - Final Blood NO GROWTH AFTER 5 DAYS A&P Assessment and plan (1) Acute respiratory distress syndrome (ARDS) due to 2019 novel coronavirus: Status: Acute (2) Acute respiratory failure with hypoxia: Status: Acute (3) COVID-19: Status: Acute Additional A&P Information COVID-19 Hypoxia Bronchoalveolar lavage revealing Trena albicans Culture negative Afebrile FiO2 50%, PEEP 10, sedation vacation, awakening trials, addition of Seroquel and opioids to wean off sedatives plan to start waking up, wean of sedation and weaning trial in order to extubate in next 24 to [address] Barrett's recommendation He is being covered empirically with broad-spectrum antibiotics however sputum and blood culture negative to date Patient's heart rate improved when we turned off his sedation his bradycardia improved, his QTC around 456, with agitation his heart rate whitney up to 114, hypoxia related ST depression noted, will request echo to monitor wall motion abnormality Full code Continue tube feeding Discontinue Decadron when white count less than 15,000, will de-escalate antibiotics to Levaquin versus Augmentin Attestations Medical Necessity Statement*: Weaning trial, Time Spent in Patient Care: 16 - 35 minutes Coding Level of Care Code Acute Attending Physician for Brock Barrera Diagnoses Acute respiratory distress syndrome (ARDS) due to 2019 novel coronavirus U07.1; J80 Acute respiratory failure with hypoxia J96.01 COVID-19 U07.1
[2021-05-25] MEDS: quetiapine 25 mg Tablet PO (18:18)
--- NOTE | 2021-05-25 18:34 | PC.NURSE ---
Patient has remained sedated and on the ventilator this shift. Sedation was titrated down and patient became extremely agitated and was leaning forward in bed attempting to pull tube out. Patient is able to answer yes and no questions during this time. Sedation was titrated back up due to thrashing in bed and attempting to pull tubes ad wires.
[2021-05-25] MEDS: budesonide 0.5 mg/2 mL Neb INHALATION (20:10)
[2021-05-25] MEDS: enoxaparin 40 mg/0.4 mL Syringe SUBCUT (22:37)
[2021-05-25] MEDS: propofol 1,000 MG/100 ML INJ 16.33 MG IV (23:53)
[2021-05-26] VITALS (67 sets, daily range): BP systolic 85–178; BP diastolic 55–97; PULSE 52–107; RESP 17–37; TEMP 37.1–37.7; O2SAT 88–95
[2021-05-26] MEDS: HYDROmorphone 1 mg/mL INJ 1 mL 0.5 MG IVP (01:20)
[2021-05-26] MEDS: ipratropium-albuterol 3 mL Neb INHALATION ×4 (02:59→20:18)
[2021-05-26 04:10] LABS: ABG PH Result 7.44 (7.35-7.45); Arterial Blood Gas Hematocrit 43.4 % (42-52); Base Excess ABG 5.5 mmol/L (-2.0-2.0); Blood Gas Allen Test Pos; Blood Gas Sample Site Radial, left; Blood Gas Sample Type Arterial; Blood Gas Tidal Volume 0.45; HCO3 ABG 30.6 mmol/L (22-26); Oxygen Device VENT; PO2 ABG 63.3 mmHg (80.0-100.0)
[2021-05-26] MEDS: propofol 1,000 MG/100 ML INJ 24.49 MG IV ×2 (04:50→09:52)
[2021-05-26 05:11] LABS: Basophils % 0.2 %; Eosinophils # 0.1 10^3/uL (0.0-0.8); Eosinophils % 0.3 %; Hematocrit 40.3 % (42.0-52.0); Hemoglobin 13.1 g/dL (11.7-16.6); Lymphocytes # 0.7 10^3/uL (0.8-4.8); Lymphocytes % 3.5 %; Mean Corpuscular HGB Conc 32.5 g/dL (30.0-36.0); Mean Corpuscular Hemoglobin 30.3 pg (28.0-34.0); Mean Corpuscular Volume 93.1 fl (80-94); Mean Platelet Volume 10.4 fL (7.4-10.4); Monocytes # 0.9 10^3/uL (0.2-0.9); Monocytes % 4.4 %; Neutrophils # 17.95 10^3/uL (1.8-7.7); Neutrophils % 89.2 %; Nucleated Red Blood Cells % 0 %; Platelet Count 533 10^3/cmm (130-400); Red Blood Count 4.33 10^6/uL (4.1-5.3); Red Cell Distribution Width 13.9 % (12.1-15.1); White Blood Count 20.1 10^3/uL (4.0-10.0)
[2021-05-26 05:30] LABS: Anion Gap 16.8 (5-19); Blood Urea Nitrogen 23 mg/dL (8-23); Calcium 8.3 mg/dL (8.5-10.5); Carbon Dioxide 24 mmol/L (22-29); Chloride 100 mmol/L (98-107); Glucose 100 mg/dL (65-115); Osmolality Calculated 286 mOsm/kg (285-295); Potassium 4.8 mmol/L (3.5-5.1); Sodium 136 mmol/L (136-145)
--- NOTE | 2021-05-26 08:51 | P.PN_ITS ---
Subjective Subjective: Interval history: Low-grade fever noted, leukocytosis noted Positive net balance Patient is awake able to follow commands, he is anxious to get his endotracheal tube out FiO2 50% PEEP 8 Heart rate fluctuating between 90-110 Hypertensive Asked nurse to start Precedex, asked RT to start weaning trial, cut back on sedatives Vitals/I&O/Wt Last Vital Signs Temp 99.9 F H 05/26/21 04:00 Pulse 78 05/26/21 06:00 Resp 17 05/26/21 06:25 BP 166/88 05/26/21 04:30 Pulse Ox 91 05/26/21 06:25 05/25/21 05/26/21 05/26/21 22:59 06:59 14:59 Intake Total 668.715 / 1318.340 854.650 / 2172.990 Output Total 750 / 750 150 / 900 Balance -81.285 / 568.340 704.650 / 1272.990 Weight last 48 hrs Weight 86.636 kg Weight 85.094 kg Physical Exam Narrative: EXAM NARRATIVE: Patient is able to follow commands while intubated Still on propofol and fentanyl He got Seroquel yesterday S1, S2 sinus tachycardia Abdomen soft Looks euvolemic Bilateral assisted breath sounds He was able to grab my hand and squeeze it pretty tight No signs of edema Urine color dark yellow Able to move all of his extremities Data : 05/26/21 04:30 05/26/21 04:30 A&P Assessment and plan (1) Superimposed infection: Status: Acute (2) Acute respiratory distress syndrome (ARDS) due to 2019 novel coronavirus: Status: Acute (3) Acute respiratory failure with hypoxia: Status: Acute (4) COVID-19: Status: Acute Additional A&P Information Low-grade fever with slight worsening of leukocytosis Patient is intubated and sedated FiO2 50% PEEP 8 Able to follow commands Start Precedex, weaning trial, sedation vacation He is on vancomycin and imipenem, chest x-ray shows right-sided pneumonitis, he is covered with antibiotics for superimposed bacterial infection, bronchial lavage showed Trena albicans Leukocytosis trending up please note Decadron was discontinued yesterday and I added prednisone 20 mg which he will be given at 9 AM today Tube feeds running at the bedside Am hopeful we will be able to extubate him later today Will discuss with Full code DVT prophylaxis: Lovenox Attestations Medical Necessity Statement*: Weaning trial today Time Spent in Patient Care: 16 - 35 minutes Coding Level of Care Code 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
[2021-05-26] MEDS: budesonide 0.5 mg/2 mL Neb INHALATION ×2 (08:53→20:19)
--- NOTE | 2021-05-26 08:57 | XR_ITS ---
WS: [id number] XR chest 1V portable [id number] REASON FOR EXAM: Right-sided pneumonitis FINDINGS: Endotracheal tube is in proper position. The nasogastric tube tip is not identified on this examinati on but likely is within the descending duodenum. The diffuse bilateral lung opacities are unchanged compared to the previous examination of 05/23/2021. No other interval change or new finding. XR/XR chest 1V portable [id number] IMPRESSION: Stable abnormal chest.
[2021-05-26] MEDS: predniSONE 20 mg Tablet PO (10:07)
[2021-05-26] MEDS: sennosides-docusate Tablet 1 TAB PO (10:07)
[2021-05-26] MEDS: quetiapine 25 mg Tablet PO (10:07)
[2021-05-26] MEDS: vancomycin 1,250 MG/250 ML PIGGYBACK 200 MG IV ×2 (13:02→22:43)
--- NOTE | 2021-05-26 13:28 | P.PN_ITS ---
Subjective Subjective: Interval history: The patient was seen and examined. Her mental status today. The patient is still on 50% oxygen. The plan is to extubate him today. Medications: Reviewed: Yes Vitals/I&O/Wt Last Vital Signs Temp 99.9 F H 05/26/21 04:00 Pulse 70 05/26/21 12:00 Resp 17 05/26/21 10:23 BP 114/68 05/26/21 12:00 Pulse Ox 90 05/26/21 12:00 05/25/21 05/26/21 05/26/21 22:59 06:59 14:59 Intake Total 668.715 / 1318.340 854.650 / 2172.990 255.916 / 255.916 Output Total 750 / 750 150 / 900 Balance -81.285 / 568.340 704.650 / 1272.990 255.916 / 255.916 Weight last 48 hrs Weight 191 lb Weight 187 lb 9.6 oz Physical Exam Narrative: EXAM NARRATIVE: General: Patient is intubated and minimally sedated. Able to follow command. Respiratory: Auscultation: Minimal crackles at bilateral lung bases, no wheezing or rhonchi Cardiovascular: Regular rate and rhythm, S1-S2 present, no murmur, no peripheral edema. Abdomen: Soft, nondistended, positive bowel sound Skin: No rash Neuro: Moving all extremities spontaneously, no focal deficit Data : 05/26/21 04:30 05/26/21 04:30 Attestation for Other Data: I personally reviewed and interpreted the following: Other data: I have reviewed the patient's laboratory, microbiologic and radiologic data. Chest x-ray reveals bilateral infiltrate but stable. Mild leukocytosis. A&P Assessment and plan (1) Acute respiratory distress syndrome (ARDS) due to 2019 novel coronavirus: This is 71-year-old gentleman with severe COVID-19. The patient is currently on 50% FiO2. He has been receiving treatment for suspected secondary bacterial infection with broad-spectrum antibiotic. His mental status is better today. The patient is currently on MV. The plan is for extubation today. Once extubated, the patient will be started on high flow nasal cannula. We will likely discontinue Seroquel. Will complete an empiric therapy with antibiotic for a week. The systemic corticosteroid will be discontinued in the near future. Status: Acute (2) Acute respiratory failure with hypoxia: See above Status: Acute (3) JAREN (acute kidney injury): This is resolved completely. 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
--- NOTE | 2021-05-26 14:11 | PC.RESP ---
RT Shift Note Frequent safety and respiratory rounds continue. Orders completed as indicated. Patient monitored pre and post treatments throughout shift. Patient [Did.] tolerate treatments appropriately. Condition .DidNotChange]. Patient and/or truck sales representative educated on respiratory treatment and medications. Patient and/or truck sales representative [unable to comprehend]. Will continue to monitor patient progress.
--- NOTE | 2021-05-26 16:10 | PC.NURSE ---
Patient was extubated at 1450 to heated highflow NC at 100%.
[2021-05-26 20:03] LABS: Add Urine Microscopic? NO
[2021-05-26 20:08] LABS: Bilirubin Urine Neg (Negative); Blood Urine Neg (Negative); Glucose Urine UA Norm (Normal); Ketones Urine Negative (Negative); Leukocyte Esterase Urine Negative (Negative); Nitrate Urine Negative (Negative); Protein Urine Neg (Negative); Urine Appearance Clear (CLEAR); Urine Color Yellow (Yellow); Urobilinogen Urine Norm (Negative); pH Urine 7 (5-7)
[2021-05-26] MEDS: acetylcysteine 200 mg/mL SDV 4 mL 100 MG INHALATION (20:18)
[2021-05-26] MEDS: enoxaparin 40 mg/0.4 mL Syringe SUBCUT (21:05)
--- NOTE | 2021-05-26 22:04 | PC.NURSE ---
Addendum entered by Ana Fraga RN 05/27/21 04:32: Witnessed waste. Original Note: Fentanyl waste 75ml in appropriate waste container, witnessed by Jazmyn Fraga RN.
[2021-05-26 22:08] LABS: Charge for UA Resulting for Rev
[2021-05-27] VITALS (57 sets, daily range): BP systolic 117–163; BP diastolic 68–96; PULSE 72–100; RESP 18–33; TEMP 36.6–37.3; O2SAT 87–95
[2021-05-27] MEDS: acetylcysteine 200 mg/mL SDV 4 mL 100 MG INHALATION ×4 (03:24→20:37)
[2021-05-27] MEDS: ipratropium-albuterol 3 mL Neb INHALATION ×4 (03:24→20:37)
[2021-05-27 04:02] LABS: Basophils % 0.2 %; Eosinophils # 0.2 10^3/uL (0.0-0.8); Hematocrit 39.5 % (42.0-52.0); Hemoglobin 12.7 g/dL (11.7-16.6); Lymphocytes # 0.7 10^3/uL (0.8-4.8); Lymphocytes % 3.5 %; Mean Corpuscular HGB Conc 32.2 g/dL (30.0-36.0); Mean Corpuscular Hemoglobin 29.9 pg (28.0-34.0); Mean Corpuscular Volume 92.9 fl (80-94); Mean Platelet Volume 10.3 fL (7.4-10.4); Monocytes % 5.2 %; Neutrophils # 16.93 10^3/uL (1.8-7.7); Neutrophils % 88.4 %; Nucleated Red Blood Cells % 0 %; Platelet Count 525 10^3/cmm (130-400); Red Blood Count 4.25 10^6/uL (4.1-5.3); Red Cell Distribution Width 13.9 % (12.1-15.1); White Blood Count 19.2 10^3/uL (4.0-10.0)
[2021-05-27 04:27] LABS: Anion Gap 16.1 (5-19); Blood Urea Nitrogen 18 mg/dL (8-23); Calcium 8.2 mg/dL (8.5-10.5); Carbon Dioxide 24 mmol/L (22-29); Chloride 99 mmol/L (98-107); Glucose 69 mg/dL (65-115); Osmolality Calculated 280 mOsm/kg (285-295); Potassium 4.1 mmol/L (3.5-5.1); Sodium 135 mmol/L (136-145)
--- NOTE | 2021-05-27 04:28 | PC.NURSE ---
Shift Note Frequent safety and comfort rounds continue. Orders and/or nursing care completed as indicated. Patient monitored for response to intervention and treatment(s). Education provided includes medications with side effects, oxygen and fall safety, orientation, goals of care, infection prevention, turning in bed, cough/deep breathing exercises. Patient verbalized understanding of education. Patient tolerated HHF. Lines and tubes patent. Patient remained anxious throughout the night with c/o not being able to sleep. Will continue to monitor.
[2021-05-27] MEDS: ondansetron 2 mg/ML SDV 2 mL 4 MG IVP (06:41)
[2021-05-27] MEDS: predniSONE 20 mg Tablet PO (07:33)
[2021-05-27] MEDS: sennosides-docusate Tablet 1 TAB PO (07:33)
[2021-05-27] MEDS: budesonide 0.5 mg/2 mL Neb INHALATION ×2 (08:11→20:37)
--- NOTE | 2021-05-27 10:01 | PC.CHAP ---
Pastoral Care Encounter/Spiritual Assessment Type of Contact [] Declined substation manager visit [] Patient/Family/Request visit [] Outpatient visit [] Follow-up visit [] Physician referral [] Code/Alert [x] Routine visit [] Staff referral [] Actively dying [] Patient sleeping [] Family support [] [] Out of room [] Palliative care [] [] Receiving care in room [] Pre-surgical visit [] Trauma [] Long length of stay [x] ICU visit [x] Other: patient off vent... oxg. spoke to him Relational/Emotional Strength [] Patient feels connected with others/family/visitors/staff [] Distress [] Loneliness/isolation [] Abandonment Spirituality of Patient [x] Person of Karla [] Attends Mandaeism of their Karla [] Believes in Prayer [] Reads Bible or Mosque materials [] There are Spiritual issues to be addressed Director Of Extension Work Interventions [x] Prayer [x] Active listening [x] Non-anxious presence [x] Spiritual/emotional support [] Crisis/trauma care [] Spiritual counseling [] Bereavement support [] Provided bereavement packet [] Provided Bible/devotional materials [] Provided toy/stuffed animal, coloring book to patient or family member [] Provided Communion [] Anointing/[place] [] Salvation [x] Completed spiritual assessment [] Other: Impact on Illness or Injury [] Angry [] Fearful [] Anxious [] Often cries [] Exhaustion [] Unable to work [] Unable to attend hindu [] Unable to walk/stand [] Unable to read [] Unable to drive [] Unable to eat/drink [] Unable to sleep [] Unable to be with family [] Patient intubated [] Other: Summary Time spent with patient
--- NOTE | 2021-05-27 10:07 | PC.SOCIAL ---
IMM not updated IMM not updated as patient isn't accepted to dc in the next 24-48.
--- NOTE | 2021-05-27 12:17 | P.PN_ITS ---
Subjective Subjective: Interval history: This morning patient was very fatigued and lethargic, he had 1 episode of emesis, leukocytosis 29, afebrile 100% heated high flow He thinks he does not have enough energy to get out of bed Will request PT evaluation and KUB today might Start clear liquids after the results Vitals/I&O/Wt Last Vital Signs Temp 98.6 F 05/27/21 08:00 Pulse 91 05/27/21 08:30 Resp 21 H 05/27/21 08:30 BP 149/80 05/27/21 08:30 Pulse Ox 91 05/27/21 08:30 05/26/21 05/27/21 05/27/21 22:59 06:59 14:59 Intake Total 450 / 713.263 350 / 1063.263 Output Total 650 / 650 Balance 450 / 713.263 -300 / 413.263 Weight last 48 hrs Weight 83.824 kg Weight 86.636 kg Physical Exam Narrative: EXAM NARRATIVE: Patient is awake and alert Evident muscle mass loss Nonfocal neuro exam Very fatigued lethargic 100% heated high flow No acute respiratory distress Spitting up mucoid sputum Bilateral breath sounds without adventitious rhonchi or crackles Abdomen soft bowel sounds very sluggish No signs of edema Data : 05/27/21 03:20 05/27/21 03:20 A&P Assessment and plan (1) Superimposed infection: Status: Acute (2) JAREN (acute kidney injury): Status: Acute (3) Acute respiratory distress syndrome (ARDS) due to 2019 novel coronavirus: Status: Acute (4) Acute respiratory failure with hypoxia: Status: Acute (5) Hypoxia: Status: Acute (6) COVID-19: Status: Acute (7) Intensive care (ICU) myopathy: Status: Acute Additional A&P Information Patient extubated 05/26/2021 to heated high flow leukocytosis is improving Afebrile Patient had 1 episode of emesis Will get KUB this morning After KUB we will advance diet to clear liquid He needs extensive PT and OT, needs optimization of his nutrition Currently on 100% heated high flow Plan to keep him in ICU for 1 more day For superimposed bacterial infection continue broad-spectrum antibiotics for now, plan to de-escalate to once white count less than 15,000 Full code ICU related myopathy Attestations Medical Necessity Statement*: Transfer out of ICU tomorrow Time Spent in Patient Care: less than 15 minutes Coding Level of Care Code Acute Electroplating Sales Representative for Chg Fwd Diagnoses Superimposed infection B99.9 JAREN (acute kidney injury) N17.9 Acute respiratory distress syndrome (ARDS) due to 2019 novel coronavirus U07.1; J80 Acute respiratory failure with hypoxia J96.01 Hypoxia R09.02 COVID-19 U07.1 Intensive care (ICU) myopathy G72.81
--- NOTE | 2021-05-27 12:22 | XR_ITS ---
WS: [id number] XR KUB portable [id number] REASON FOR EXAM: Emesis FINDINGS: No free air or retroperitoneal air is identified. There are 2 mildly dilated loops of small bowel in the central abdomen, nonspecific. There is a moderately dilated focal bowel loop in the central lower abdomen. The location and orienta tion suggest this is a loop of sigmoid colon. Presumed left femoral vein catheter. XR/XR KUB portable [id number] IMPRESSION: Bowel gas pattern is nonspecific at this point, however, the dilated loop of florence wel in the central lower abdomen is of some concern and a follow-up abdomen jeana m should be obtained to further evaluate for closed loop obstruction.
--- NOTE | 2021-05-27 12:25 | ECG_ITS ---
[facility] Test Date: 2021-05-27 Pat Name: Bennie Chandra Department: Room: ICU03 Gender: Male Anesthesia Attending: : 1950 Requested By: Coby Spears Order Number: [id number] Stormy MD: Arthur Catalan M.D. Measurements Intervals [place] Rate: 84 P: 25 DC: 189 QRS: 14 QRSD: 78 T: 16 QT: 353 QTc: 418 Interpretive Statements SINUS RHYTHM ST DEVIATION AND MODERATE T-WAVE ABNORMALITY, CONSIDER ANTEROLATERAL ISCHEMIA [-0.1+ mV T-WAVE IN V3-V6] Compared to ECG 05/25/2021 14:53:35 T-wave abnormality now present Possible ischemia now present Sinus tachycardia no longer present ST (T wave) deviation no longer present Electronically Signed On 05-27-2021 19:58:19 DREDGE OPERATOR by Arthur Catalan M.D. [email or web address]
--- NOTE | 2021-05-27 12:26 | USCV_ITS ---
Prateek Bennie Age: 71 Gender: M : 1950 Exam Date: 05/27/2021 13:35 Ordering Phys: Coby Spears MD Technologist: Exam Location: [facility] [place] Indication: ? EF BP: 110 / 65 HR: 81 Rhythm: Sinus Technical Quality: Adequate MEASUREMENTS (Male / Female) Normal Values 2D ECHO LV Diastolic Diameter PLAX 4.1 cm 4.2 - 5.9 / 3.9 - 5.3 cm LV Systolic Diameter PLAX 2.6 cm IVS Diastolic Thickness 0.9 cm 0.6 - 1.0 / 0.6 - 0.9 cm IVS Systolic Thickness 1.2 cm LVPW Diastolic Thickness 1.0 cm 0.6 - 1.0 / 0.6 - 0.9 cm LVPW Systolic Thickness 1.0 cm LV Ejection Fraction 2D Teich 67.2 % LV Ejection Fraction MOD 2C 61.5 % LV Ejection Fraction 2C AL 60.0 % LA Diameter 4.9 cm LA Width 3.0 cm LA Height 4.1 cm RA Width 3.0 cm RA Height 4.5 cm M-MODE Aortic Annulus Diameter 4.4 cm LA Ao Ratio MM 1.1 MV E Point Septal Separation 1.4 cm FINDINGS Left Ventricle Normal left ventricular cavity size. Normal left ventricular systolic function. No regional wall motion abnormalities. Left ventricular ejection fraction is estimated at 60 %. Right Ventricle The right ventricle is normal in size and function. Right Atrium The right atrium is normal in size. Left Atrium The left atrium is normal in size. Mitral Valve Structurally normal mitral valve without significant stenosis or prolapse. There is no mitral regurgitation. Aortic Valve Structurally normal aortic valve without significant sclerosis or stenosis. There is no aortic regurgitation. Tricuspid Valve Structurally normal tricuspid valve without significant stenosis or regurgitation. Pulmonic Valve Structurally normal pulmonic valve without significant stenosis. There is no pulmonic regurgitation. Pericardium Normal pericardium without effusion. Aorta Normal ascending aorta dimension. CONCLUSIONS 1-Normal left ventricular cavity size. Normal left ventricular systolic function. No regional wall motion abnormalities. Left ventricular ejection fraction is estimated at 60 %. 2-No significant valve abnormalities. 3-There is no pericardial effusion. 4-Pulmonary artery systolic pressure is within normal limits. 5-Right atrial pressure is around 5 mm of mercury. 6-There are no prior echocardiogram studies to compare. Coby Hendricks MD (Electronically Signed) Final Date: 27 May 2021 21:55 S
[2021-05-27] MEDS: vancomycin 1,250 MG/250 ML PIGGYBACK 200 MG IV (12:46)
[2021-05-27 13:04] LABS: P. Jirovecii DNA QL PCR NOT DETECTED
--- NOTE | 2021-05-27 14:46 | PC.NURSE ---
Patient has been working with OT and PT throughout the day and has been able to stand up with moderate assistance. Pt sat in chair in room for an hour and then transferred self back to bed.
[2021-05-27 16:51] LABS: Lactate (Lactic Acid level) 1.3 mmol/L (0.5-2.2)
[2021-05-27] MEDS: HYDROmorphone 1 mg/mL INJ 1 mL 0.5 MG IVP (18:11)
--- NOTE | 2021-05-27 18:18 | CTR_ITS ---
PROCEDURE INFORMATION: Exam: CT Abdomen And Pelvis With Contrast Exam date and time: 05/27/2021 6:18 PM Age: 71 years old Clinical indication: Nausea and vomiting; Additional info: Close loop TECHNIQUE: Imaging protocol: Computed tomography of the abdomen and pelvis with contrast. Radiation optimization: All CT scans at this facility use at least one of these dose optimization techniques: automated exposure control; mA and/or kV adjustment per patient size (includes targeted exams where dose is matched to clinical indication); or iterative reconstruction. Contrast material: OMNI 300; Contrast volume: 95 ml; Contrast route: INTRAVENOUS (IV); COMPARISON: CR XR KUB portable [id number] 05/27/2021 1:16 PM RADIATION DOSE METRICS: Total DLP (mGy-cm): 1713.1 FINDINGS: Tubes, catheters and devices: Left groin central venous catheter with tip in the left external iliac vein. Lungs: Dense consolidation in both lung bases with intermixed patchy ground-glass opacities. Small left and trace right pleural effusions. Liver: Calcified granulomas in the liver. Gallbladder and bile ducts: Small calcified stones in the gallbladder. No wall thickening. The bile ducts are normal. Pancreas: Normal. No ductal dilation. Spleen: Multiple wedge-shaped hypodensities in the spleen. Calcified granulomas. Adrenal glands: Normal. No mass. Kidneys and ureters: Hypodensities in both kidneys are too small to characterize but are most likely cysts. No follow-up imaging is recommended. Stomach and bowel: Mild diverticulosis of the distal colon. No diverticulitis. The remainder of the colon, stomach, and small bowel are unremarkable. Appendix: The appendix is not visualized. No secondary signs of appendicitis. Intraperitoneal space: Mild pelvic ascites. No free air. Vasculature: Unremarkable. No abdominal aortic aneurysm. Lymph nodes: Unremarkable. No enlarged lymph nodes. Urinary bladder: Combs catheter in a decompressed urinary bladder. Reproductive: Unremarkable as visualized. Bones/joints: Unremarkable. No acute fracture. Soft tissues: Densities in the subcutaneous anterior abdominal wall most likely represent medication injection sites. CT/CT abdomen pelvis w con* [id number] IMPRESSION: 1. Wedge-shaped hypodensities in the spleen most likely represent acute infarcts. No visible abnormality identified within the splenic artery and branches. 2. Cholelithiasis. 3. Mild diverticulosis of the colon. 4. Multilobar pneumonia with pleural fluid. COMMENTS: Consistent with the [employer]'s Incidental Findings Committee white paper (J Am Rocky Radiol 2018): Any incidental renal lesion less than 1 cm or classified as too small to characterize, or any incidental cystic renal lesion characterized as simple-appearing, is likely benign. No follow-up imaging is recommended for these lesions per consensus recommendations based on imaging criteria.
--- NOTE | 2021-05-27 18:48 | PC.NURSE ---
NG tube was attempted to be placed twice without success. Dr. owens.
[2021-05-27] MEDS: dextrose 5%-sod chloride 0.45% 1,000 ML 30 ML IV (20:52)
[2021-05-27] MEDS: enoxaparin 40 mg/0.4 mL Syringe SUBCUT (22:08)
[2021-05-28] VITALS (56 sets, daily range): BP systolic 113–177; BP diastolic 67–97; PULSE 20–103; RESP 17–40; TEMP 36.7–37.8; O2SAT 69–97
[2021-05-28] MEDS: enoxaparin 40 mg/0.4 mL Syringe SUBCUT (00:41)
[2021-05-28] MEDS: vancomycin 1,250 MG/250 ML PIGGYBACK 200 MG IV ×2 (00:41→12:00)
[2021-05-28] MEDS: ipratropium-albuterol 3 mL Neb INHALATION ×4 (02:48→19:48)
[2021-05-28] MEDS: acetylcysteine 200 mg/mL SDV 4 mL 100 MG INHALATION ×3 (02:48→14:25)
[2021-05-28 03:44] LABS: ABG PCO2 41.3 mmHg (35-45); ABG PH Result 7.44 (7.35-7.45); Base Excess ABG 3.2 mmol/L (-2.0-2.0); Blood Gas Allen Test Pos; Blood Gas Sample Site Radial, left; Blood Gas Sample Type Arterial; HCO3 ABG 27.8 mmol/L (22-26); Oxygen Device HAG; PO2 ABG 58.5 mmHg (80.0-100.0)
[2021-05-28 05:03] LABS: Basophils % 0.2 %; Eosinophils # 0.1 10^3/uL (0.0-0.8); Eosinophils % 0.7 %; Hematocrit 41.6 % (42.0-52.0); Hemoglobin 13.2 g/dL (11.7-16.6); Lymphocytes # 0.6 10^3/uL (0.8-4.8); Lymphocytes % 2.8 %; Mean Corpuscular HGB Conc 31.7 g/dL (30.0-36.0); Mean Corpuscular Hemoglobin 30.4 pg (28.0-34.0); Mean Corpuscular Volume 95.9 fl (80-94); Mean Platelet Volume 9.9 fL (7.4-10.4); Monocytes # 0.9 10^3/uL (0.2-0.9); Monocytes % 4.7 %; Neutrophils # 17.84 10^3/uL (1.8-7.7); Neutrophils % 89.9 %; Nucleated Red Blood Cells % 0 %; Platelet Count 541 10^3/cmm (130-400); Red Blood Count 4.34 10^6/uL (4.1-5.3); Red Cell Distribution Width 14.4 % (12.1-15.1); White Blood Count 19.8 10^3/uL (4.0-10.0)
[2021-05-28 05:24] LABS: Blood Urea Nitrogen 20 mg/dL (8-23); Calcium 7.6 mg/dL (8.5-10.5); Carbon Dioxide 23 mmol/L (22-29); Chloride 99 mmol/L (98-107); Glucose 85 mg/dL (65-115); Osmolality Calculated 286 mOsm/kg (285-295); Sodium 137 mmol/L (136-145)
[2021-05-28 05:33] LABS: Anion Gap 19.6 (5-19); Potassium 4.6 mmol/L (3.5-5.1)
--- NOTE | 2021-05-28 07:54 | PC.NURSE ---
Patient asked this nurse if he could refuse care and shortly after he told this nurse that he was going to go home today.
[2021-05-28] MEDS: budesonide 0.5 mg/2 mL Neb INHALATION ×2 (08:02→19:48)
[2021-05-28] MEDS: sennosides-docusate Tablet 1 TAB PO (08:15)
[2021-05-28] MEDS: polyethylene glycol 3350 Pkt 17 gm PO (08:15)
[2021-05-28] MEDS: predniSONE 20 mg Tablet PO (08:15)
[2021-05-28] MEDS: enoxaparin 80 mg/0.8 mL Syringe SUBCUT ×2 (08:16→21:50)
--- NOTE | 2021-05-28 11:33 | P.PN_ITS ---
Subjective Subjective: Interval history: Splenic infarct Started therapeutic Lovenox regimen No active emesis Able to tolerate his diet Diet advanced to soft mechanical today Will need PT evaluation PaO2 50% on 50% FiO2 which has been increased to 95% however at the time of my evaluation he was saturating 89 to 90% on 85%, 50 L, extremely lethargic, concentrated urine Off isolation, his symptoms started 2 weeks prior to his admission to the hospital Called to update her, she is planning to come in today Hypocalcemia: Lactic acid normal Discontinue D5 half-normal saline No bowel movement yet Vitals/I&O/Wt Last Vital Signs Temp 98.1 F 05/28/21 04:00 Pulse 87 05/28/21 11:21 Resp 27 H 05/28/21 11:21 BP 155/88 05/28/21 08:30 Pulse Ox 92 05/28/21 11:21 05/27/21 05/28/21 05/28/21 22:59 06:59 14:59 Intake Total 450 / 550 350 / 900 120 / 120 Output Total 1250 / 1250 Balance -800 / -700 350 / -350 120 / 120 Weight last 48 hrs Weight 83.824 kg Physical Exam Narrative: EXAM NARRATIVE: This morning patient was eating Jell-O No active emesis Extremely weak and lethargic Concentrated urine noted D5 half-normal saline IV fluid discontinued this morning Afebrile Leukocytosis trending down Nonfocal neuro exam Able to follow commands and answer appropriately Bilateral breath sounds with rhonchi at the bases 50 L, 85% Heated high flow 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 Data : 05/28/21 04:38 05/28/21 04:38 Micro: Microbiology 05/28/21 09:34 Blood Culture - Preliminary Blood SPECIMEN COLLECTED 05/28/21 04:38 Blood Culture - Preliminary Blood SPECIMEN COLLECTED A&P Assessment and plan (1) Intensive care (ICU) myopathy: Status: Acute (2) Superimposed infection: Status: Acute (3) JAREN (acute kidney injury): Status: Acute (4) Acute respiratory distress syndrome (ARDS) due to 2019 novel coronavirus: Status: Acute (5) Acute respiratory failure with hypoxia: Status: Acute (6) Hypoxia: Status: Acute (7) COVID-19: Status: Acute (8) Splenic infarct: Status: Acute Additional A&P Information Splenic infarct: His rhythm is sinus, currently on therapeutic Lovenox regimen Lactic acid is normal, not sure about the exact etiology, COVID-19 related hypercoagulable state? Closed-loop of bowel noted on KUB however on CT abdomen no such findings were noted, no bowel movement yet, will give him MiraLAX and continue senna S COVID-19 with superimposed bacterial infection Leukocytosis trending down Continue broad-spectrum antibiotics, de-escalate once white count less than 15,000 Status post Decadron, currently on prednisone 20, Heated high flow 85% 50 L ICU myopathy Need PT evaluation ST depression noted on EKG however echo did not show any wall motion abnormality most likely this is related to hypoxia related to COVID-19 Clinically does not look fluid overloaded No active chest pain Hemodynamically stable Troponin without significant delta JAREN resolved Full code Mechanical soft diet Currently on therapeutic regimen of Lovenox Will touch base with 'yasmine today if he feels that patient is stable to be transferred out of ICU Attestations Medical Necessity Statement*: Continue medical management Time Spent in Patient Care: 16 - 35 minutes Coding Level of Care Code Acute Feather Sawyer for g Fwd Diagnoses Intensive care (ICU) myopathy G72.81 Superimposed infection B99.9 JAREN (acute kidney injury) N17.9 Acute respiratory distress syndrome (ARDS) due to 2019 novel coronavirus U07.1; J80 Acute respiratory failure with hypoxia J96.01 Hypoxia R09.02 COVID-19 U07.1 Splenic infarct D73.5
[2021-05-28 12:53] LABS: 25 Hydroxy Vitamin D 14 ng/mL (30-100)
[2021-05-28 13:49] LABS: Calcium 7.8 mg/dL (8.5-10.5)
[2021-05-28 13:55] LABS: Parathyroid Hormone 39.1 pg/mL (15-65)
--- NOTE | 2021-05-28 15:08 | PM.PN ---
Subjective Subjective: Interval history: The patient was seen and examined. Resting comfortably in bed. Appears tired and has diffuse muscle weakness. CT angiogram of the abdomen and pelvis yesterday revealed multiple splenic infarct. The patient is not complaining of abdominal pain. The patient has low-grade fever and mild persistent leukocytosis. Medications: Reviewed: Yes Vitals/I&O/Wt Last Vital Signs Temp 100.1 F H 05/28/21 09:00 Pulse 78 05/28/21 14:30 Resp 40 H 05/28/21 14:30 BP 131/78 05/28/21 11:30 Pulse Ox 90 05/28/21 14:30 05/28/21 05/28/21 05/28/21 06:59 14:59 22:59 Intake Total 350 / 900 470 / 470 Balance 350 / -350 470 / 470 Weight last 48 hrs Weight 184 lb 12.8 oz Physical Exam Narrative: EXAM NARRATIVE: General: The patient is awake alert and oriented, resting comfortably in bed Respiratory: Auscultation: Reduced breath sound bilaterally, no crackles or wheezing, occasional rhonchi at the basal areas bilaterally Cardiovascular: Regular rate and rhythm, S1-S2 present, no murmur, no peripheral edema. Abdomen: Soft, nontender, nondistended, positive bowel sound Skin: No rash Neuro: No focal neurological deficit Data : 05/28/21 04:38 05/28/21 04:38 Micro: Microbiology 05/28/21 09:34 Blood Culture - Preliminary Blood SPECIMEN COLLECTED 05/28/21 04:38 Blood Culture - Preliminary Blood SPECIMEN COLLECTED Attestation for Other Data: I personally reviewed and interpreted the following: Other data: I have reviewed the patient's laboratory, microbiologic and radiologic data. A&P Assessment and plan (1) Acute respiratory distress syndrome (ARDS) due to 2019 novel coronavirus: This is 71-year-old gentleman with severe COVID-19. The patient is currently on high flow nasal cannula with decreasing oxygen requirement. The patient appears comfortable and not struggling or having any significant shortness of breath. I believe the patient's oxygen requirement is going to continue to go down in the near future. The patient is covered with broad-spectrum antibiotic which can be discontinued after a total of 10 days of therapy have been given. I would recommend discontinuing the prednisone as well. Status: Acute (2) Splenic infarct: The patient has developed multiple acute splenic infarct without any evidence of splenic artery thrombosis. This appears to be a rare complication of COVID-19. We will start the patient on full dose anticoagulation and plan to continue anticoagulation for total of 3 months. The patient is going to be on subcutaneous Lovenox which will be switched to likely apixaban on discharge. Status: Acute (3) Acute respiratory failure with hypoxia: The patient is slowly getting better. The primary focus at this point is going to be extensive physical rehab. Status: Acute (4) JAREN (acute kidney injury): This is resolved completely. Status: Acute Attestations Medical Necessity Statement*: Will defer to the primary team Coding Level of Care Code Acute Senior Software Analyst for Brock Barrera Diagnoses Acute respiratory distress syndrome (ARDS) due to 2019 novel coronavirus U07.1; J80 Splenic infarct D73.5 Acute respiratory failure with hypoxia J96.01 JAREN (acute kidney injury) N17.9 Time Spent (min) 32
--- NOTE | 2021-05-28 18:23 | PC.NURSE ---
Patient was transferred to CSU at 1745 with all belongings on non rebreather. Patient was placed back on heated high flow NC. at bedside.
[2021-05-28] MEDS: magnesium hydroxide 30 mL UDC 15 ML PO (21:51)
[2021-05-28 23:25] LABS: Vancomycin Trough 14.3 ug/mL (10-15)
[2021-05-29] VITALS (24 sets, daily range): BP systolic 118–136; BP diastolic 69–79; PULSE 69–119; RESP 14–30; TEMP 36.6–38.2; O2SAT 87–92; BMI 26.1
[2021-05-29] MEDS: vancomycin 1,250 MG/250 ML PIGGYBACK 200 MG IV ×3 (01:39→22:35)
[2021-05-29 02:47] LABS: Basophils % 0.1 %; Eosinophils # 0.1 10^3/uL (0.0-0.8); Eosinophils % 0.7 %; Hematocrit 41.8 % (42.0-52.0); Hemoglobin 13.4 g/dL (11.7-16.6); Lymphocytes # 0.8 10^3/uL (0.8-4.8); Mean Corpuscular HGB Conc 32.1 g/dL (30.0-36.0); Mean Corpuscular Hemoglobin 30.5 pg (28.0-34.0); Mean Platelet Volume 10.1 fL (7.4-10.4); Monocytes % 5.8 %; Neutrophils # 14.56 10^3/uL (1.8-7.7); Neutrophils % 87.3 %; Nucleated Red Blood Cells % 0 %; Platelet Count 534 10^3/cmm (130-400); Red Cell Distribution Width 14.3 % (12.1-15.1); White Blood Count 16.7 10^3/uL (4.0-10.0)
[2021-05-29 03:11] LABS: Anion Gap 13.1 (5-19); Blood Urea Nitrogen 21 mg/dL (8-23); Calcium 7.7 mg/dL (8.5-10.5); Carbon Dioxide 27 mmol/L (22-29); Chloride 103 mmol/L (98-107); Glucose 87 mg/dL (65-115); Osmolality Calculated 290 mOsm/kg (285-295); Potassium 4.1 mmol/L (3.5-5.1); Sodium 139 mmol/L (136-145)
[2021-05-29] MEDS: ipratropium-albuterol 3 mL Neb INHALATION ×3 (03:51→20:56)
[2021-05-29 04:07] LABS: ABG PCO2 42.9 mmHg (35-45); ABG PH Result 7.45 (7.35-7.45); Arterial Blood Gas Hematocrit 39.1 % (42-52); Base Excess ABG 5.5 mmol/L (-2.0-2.0); Blood Gas Sample Site Radial, left; Blood Gas Sample Type Arterial; HCO3 ABG 30.1 mmol/L (22-26); Oxygen Device NC
--- NOTE | 2021-05-29 08:49 | P.PN_ITS ---
Subjective Subjective: Interval history: This morning patient was seen and examined at the bedside, he is asking when can he go home, he is enthusiastic to leave the hospital however still requiring 40 L, 60% he was saturating 84% I will increase his FiO2 to 70% which improved his oxygen saturation to 88 to 89% No acute respite distress No conversational dyspnea No overnight events Low-grade fever noted 100.1 Leukocytosis trending down PO2 56 on 65% oxygen. Heated high flow He was eating his breakfast when entered the room No bowel movement yet, patient is endorsing passing flatus Vitals/I&O/Wt Last Vital Signs Temp 98 F 05/29/21 00:00 Pulse 96 05/29/21 04:56 Resp 29 H 05/29/21 04:04 BP 121/69 05/29/21 04:04 Pulse Ox 87 L 05/29/21 04:04 05/28/21 05/29/21 05/29/21 22:59 06:59 14:59 Intake Total 100 / 670 Output Total 1250 / 1250 0 / 1250 Balance -1250 / -680 100 / -580 Weight last 48 hrs Weight 82.645 kg Physical Exam Narrative: EXAM NARRATIVE: Patient was eating breakfast when entered the room Heated high flow FiO2 increased to 70% 40 L Bilateral breath sounds with rhonchi at the bases No acute respiratory distress No conversational dyspnea Nonfocal neuro exam Fatigue and lethargic Decrease endurance and strength S1, S2 sinus rhythm, no murmur Abdomen soft Urinary Catheter Management^: Combs: Cath Placed During This Visit: no Reason for Continuing Indwelling Catheter: Accurate Measurement of Urinary Output in Critically Ill Patients Data : 05/29/21 02:09 05/29/21 02:09 Micro: Microbiology 05/28/21 04:38 Blood Culture - Preliminary Blood NEGATIVE TO DATE 05/28/21 09:34 Blood Culture - Preliminary Blood SPECIMEN COLLECTED A&P Assessment and plan (1) Splenic infarct: Status: Acute (2) Superimposed infection: Status: Acute (3) Intensive care (ICU) myopathy: Status: Acute (4) JAREN (acute kidney injury): Status: Acute (5) Acute respiratory distress syndrome (ARDS) due to 2019 novel coronavirus: Status: Acute (6) Acute respiratory failure with hypoxia: Status: Acute (7) Hypoxia: Status: Acute (8) COVID-19: Status: Acute (9) Hypocalcemia: Status: Acute Additional A&P Information COVID-19 related hypoxia Superimposed bacterial infection evident with pneumonitis on the x-ray Heated high flow, 70% 40 L Low-grade fever noted Appreciate Dr. Barrett's recommendation, to finish 10 days of IV antibiotics, leukocytosis trending down Repeated blood cultures on 05/28 for febrile episodes Hernandes trough level 14 Acute splenic infarct Isolated event Sinus rhythm Likely related to COVID-19, currently on therapeutic dose of Lovenox ICU myopathy PT evaluation Patient is on mechanical soft diet Hypocalcemia to be repleted Check phosphorus level For hypocalcemia start calcium and vitamin D supplementation Likely related to use of steroids Normal PTH JAREN: Resolved Started screening for LTAC Wean off oxygen Advance diet as tolerated Full code Attestations Medical Necessity Statement*: Continue medical management Time Spent in Patient Care: less than 15 minutes Coding Level of Care Code Acute Student Services Director for Chg Fwd Diagnoses Splenic infarct D73.5 Superimposed infection B99.9 Intensive care (ICU) myopathy G72.81 JAREN (acute kidney injury) N17.9 Acute respiratory distress syndrome (ARDS) due to 2019 novel coronavirus U07.1; J80 Acute respiratory failure with hypoxia J96.01 Hypoxia R09.02 COVID-19 U07.1 Hypocalcemia E83.51
[2021-05-29] MEDS: enoxaparin 80 mg/0.8 mL Syringe SUBCUT ×2 (08:58→20:19)
[2021-05-29] MEDS: sennosides-docusate Tablet 1 TAB PO (09:03)
[2021-05-29] MEDS: polyethylene glycol 3350 Pkt 17 gm PO (09:03)
[2021-05-29] MEDS: budesonide 0.5 mg/2 mL Neb INHALATION ×2 (09:08→20:56)
[2021-05-29] MEDS: acetylcysteine 200 mg/mL SDV 4 mL 100 MG INHALATION ×2 (09:09→20:56)
[2021-05-29 09:26] LABS: Phosphorus 2.5 mg/dL (2.5-4.5)
--- NOTE | 2021-05-29 09:26 | PC.SOCIAL ---
IMM update IMM updated with patient. Copy Pg 2 provided. Verbalized an understanding. Initialled, dated, timed, and placed in chart.
--- NOTE | 2021-05-29 10:00 | PC.NURSE ---
pt wants to keep his rushing catheter educated pt on rushing cath risk of infxn and he will be getting out of bed with exertion to use the urinal for voiding. pt decided to keep his rushing cath.
[2021-05-29] MEDS: calcium carb-vit d 600mg/400unit 1 Tablet 1 EACH PO (12:25)
[2021-05-29] MEDS: acetaminophen 325 mg Tablet 650 MG PO (17:19)
--- NOTE | 2021-05-29 18:03 | PC.NURSE ---
Pt refused his meal tray he said his is bringing him some food.
--- NOTE | 2021-05-29 19:46 | PC.NURSE ---
Received report from YONATHAN Calixto. Patient resting in bed with spouse at bedside. Combs catheter removed per protocol. Patient tolerated well. Picc line removed from left groin. Catheter intact. Site cleaned, betadine applied, covered with 2x2 and bio-occlusive dressing. No s/s of bleeding observed. Patient tolerated well. Patient denies pain or needs presently. No distress observed. Will continue to monitor.
[2021-05-29] MEDS: magnesium hydroxide 30 mL UDC 15 ML PO (20:19)
--- NOTE | 2021-05-29 20:42 | PC.NURSE ---
Patient reports not sleeping well for a few nights. Spouse stated, He takes Tylenol PM at home sometimes. Informed Dr Slaughter and received telephone order for Benadryl 50mg PRN at bedtime.
[2021-05-29] MEDS: diphenhydrAMINE 50 mg Capsule PO (20:56)
[2021-05-29] MEDS: ondansetron 2 mg/ML SDV 2 mL 4 MG IVP (21:08)
[2021-05-30] VITALS (19 sets, daily range): BP systolic 120–155; BP diastolic 72–94; PULSE 85–102; RESP 20–35; TEMP 36.7–37.8; O2SAT 86–92
[2021-05-30] MEDS: ipratropium-albuterol 3 mL Neb INHALATION ×4 (02:12→21:36)
[2021-05-30 03:53] LABS: ABG PCO2 44.9 mmHg (35-45); ABG PH Result 7.43 (7.35-7.45); Arterial Blood Gas Hematocrit 39.3 % (42-52); Base Excess ABG 4.8 mmol/L (-2.0-2.0); Blood Gas Allen Test Pos; Blood Gas Sample Type Arterial; HCO3 ABG 29.8 mmol/L (22-26); PO2 ABG 54.6 mmHg (80.0-100.0)
[2021-05-30 03:54] LABS: Blood Gas Sample Site Radial, right; Oxygen Device HAG
--- NOTE | 2021-05-30 04:00 | XRR_ITS ---
PROCEDURE INFORMATION: Exam: XR Chest Exam date and time: 05/30/2021 4:00 AM Age: 71 years old Clinical indication: Fever and shortness of breath TECHNIQUE: Imaging protocol: XR of the chest. Views: 1 view. COMPARISON: CR XR chest 1V portable [id number] 05/26/2021 9:03 AM FINDINGS: Lungs: There are extensive bilateral pulmonary infiltrates which are increasing since previous study. Pleural spaces: Unremarkable. No pleural effusion. No pneumothorax. Heart/Mediastinum: Unremarkable. No cardiomegaly. Bones/joints: Unremarkable. XR/XR chest 1V portable [id number] IMPRESSION: Worsening bilateral pulmonary infiltrates.
[2021-05-30 04:58] LABS: Basophils % 0.3 %; Eosinophils # 0.2 10^3/uL (0.0-0.8); Eosinophils % 1.6 %; Hemoglobin 13.2 g/dL (11.7-16.6); Lymphocytes # 0.9 10^3/uL (0.8-4.8); Lymphocytes % 5.6 %; Mean Corpuscular HGB Conc 31.4 g/dL (30.0-36.0); Mean Corpuscular Volume 95.5 fl (80-94); Monocytes # 0.9 10^3/uL (0.2-0.9); Monocytes % 5.9 %; Neutrophils # 13.21 10^3/uL (1.8-7.7); Neutrophils % 85.8 %; Nucleated Red Blood Cells % 0 %; Platelet Count 409 10^3/cmm (130-400); Red Cell Distribution Width 14.6 % (12.1-15.1); White Blood Count 15.4 10^3/uL (4.0-10.0)
[2021-05-30 05:12] LABS: Anion Gap 15.9 (5-19); Blood Urea Nitrogen 20 mg/dL (8-23); Calcium 7.5 mg/dL (8.5-10.5); Carbon Dioxide 24 mmol/L (22-29); Chloride 104 mmol/L (98-107); Glucose 86 mg/dL (65-115); Lactate Dehydrogenase 332 U/L (135-225); Osmolality Calculated 292 mOsm/kg (285-295); Potassium 3.9 mmol/L (3.5-5.1); Sodium 140 mmol/L (136-145)
--- NOTE | 2021-05-30 06:03 | PC.NURSE ---
Shift Note Frequent safety and comfort rounds continue. Orders and/or nursing care completed as indicated. Patient monitored for response to intervention and treatment(s). Education provided includes Primaxin and vancomycin. Patient verbalized understanding. Patient had uneventful night. Discontinued need for 1:1 sitter. Patient remained AAOx3. Used call light appropriately. Patient afebrile at this time. Reports feeling some better . No distress observed. Will continue to monitor.
[2021-05-30] MEDS: enoxaparin 80 mg/0.8 mL Syringe SUBCUT ×2 (07:59→19:14)
[2021-05-30] MEDS: sennosides-docusate Tablet 1 TAB PO (08:17)
[2021-05-30] MEDS: acetaminophen 325 mg Tablet 650 MG PO ×2 (08:17→19:13)
[2021-05-30] MEDS: polyethylene glycol 3350 Pkt 17 gm PO (08:17)
[2021-05-30] MEDS: calcium carb-vit d 600mg/400unit 1 Tablet 1 EACH PO (08:27)
--- NOTE | 2021-05-30 08:36 | CTR_ITS ---
PROCEDURE INFORMATION: Exam: CT Chest Without Contrast; Diagnostic Exam date and time: 05/30/2021 8:36 AM Age: 71 years old Clinical indication: Cough and shortness of breath; Patient HX: ? Cystic pneumonia; Additional info: , Febrile, hypoxoa, pcp pneumonia? Cystic pneumonia TECHNIQUE: Imaging protocol: Diagnostic computed tomography of the chest without contrast. Radiation optimization: All CT scans at this facility use at least one of these dose optimization techniques: automated exposure control; mA and/or kV adjustment per patient size (includes targeted exams where dose is matched to clinical indication); or iterative reconstruction. COMPARISON: CT angio chest PE protcl [id number] 05/19/2021 6:21 PM RADIATION DOSE METRICS: Total DLP (mGy-cm): 882.89 FINDINGS: Lungs: Patchy bilateral airspace infiltrates. Pleural spaces: Small left pleural effusion. Heart: Coronary artery atherosclerotic calcifications. Aorta: Unremarkable. No aortic aneurysm. Lymph nodes: Scattered prominent mediastinal lymph nodes measuring up to 14 mm. Gallbladder and bile ducts: Cholelithiasis. Spleen: Splenic cyst. Bones/joints: Unremarkable. No acute fracture. Soft tissues: Unremarkable. CT/CT chest [facility] [id number] IMPRESSION: 1. Scattered prominent mediastinal lymph nodes measuring up to 14 mm. 2. Coronary artery atherosclerotic calcifications. 3. Small left pleural effusion. 4. Cholelithiasis. 5. Splenic cyst. 6. Patchy bilateral airspace infiltrates likely reflecting an infectious process.
[2021-05-30] MEDS: budesonide 0.5 mg/2 mL Neb INHALATION ×2 (10:04→21:36)
--- NOTE | 2021-05-30 11:11 | PM.PN ---
Subjective Subjective: Interval history: Central line and Combs catheter removed 05/29 Patient is still febrile Requested CT chest to rule out pneumocystic pneumonia However bronchial wash PCP negative LDH trending down Today patient is stating that he is feeling slightly better however he is still saturating 89 to 90% on 75% 35 L at the bedside He will need screening for LTAC Poor p.o. intake, anorexia, no bowel movement yet Vitals/I&O/Wt Last Vital Signs Temp 100.1 F H 05/30/21 08:41 Pulse 87 05/30/21 10:12 Resp 20 H 05/30/21 10:12 BP 122/72 05/30/21 08:41 Pulse Ox 92 05/30/21 10:12 05/29/21 05/30/21 05/30/21 22:59 06:59 14:59 Intake Total 560 / 1060 470 / 1530 336 / 336 Output Total 450 / 1150 300 / 1450 Balance 110 / -90 170 / 80 336 / 336 Weight last 48 hrs Weight 80.603 kg Weight 82.645 kg Physical Exam Narrative: EXAM NARRATIVE: Patient was resting comfortably in the bed No conversational dyspnea Heated high flow 75%, 35 L at the bedside no edema, purulent Tolerating his p.o. diet Looks euvolemic Slight improvement in energy Becomes hypoxic on ambulation Abdomen soft Nonfocal neuro exam Urinary Catheter Management^: Combs: Cath Placed During This Visit: yes, but has since been removed by the nurse Reason for Continuing Indwelling Catheter: Acute Urinary Retention or Obstruction Date Urinary Catheter Removed: 05/29/21 Time Urinary Catheter Discontinued: 19:46 Data : 05/30/21 04:41 05/30/21 04:41 Micro: Microbiology 05/28/21 09:34 Blood Culture - Preliminary Blood NEGATIVE TO DATE A&P Assessment and plan (1) Hypocalcemia: Status: Acute (2) Splenic infarct: Status: Acute (3) Intensive care (ICU) myopathy: Status: Acute (4) Superimposed infection: Status: Acute (5) JAREN (acute kidney injury): Status: Acute (6) Acute respiratory distress syndrome (ARDS) due to 2019 novel coronavirus: Status: Acute (7) Acute respiratory failure with hypoxia: Status: Acute (8) Hypoxia: Status: Acute (9) COVID-19: Status: Acute Additional A&P Information Today I am going to obtain another sputum sample, patient is remaining mucoid brown sputum, CT chest to rule out pneumocystis pneumonia however BAL PCP negative, LDH trending down, patient is still febrile with low-grade fever, blood culture obtained yesterday, central line removed on 05/29, Combs catheter removed as well, leukocytosis trending down Echo did not show any vegetation, he is not septic No signs of bacteremia No signs of meningitis, chest ray shows worsening infiltrate Prednisone 20 mg discontinued yesterday Continue IV antibiotics for 10 days LTAC placement PT evaluation on daily basis Speech evaluation to rule out aspiration, I have kept him on mechanical soft diet Attestations Medical Necessity Statement*: Continue medical management Time Spent in Patient Care: 16 - 35 minutes Coding Level of Care Code Acute Concrete Tile Machine Operator for Chg Fwd Diagnoses Hypocalcemia E83.51 Splenic infarct D73.5 Intensive care (ICU) myopathy G72.81 Superimposed infection B99.9 JAREN (acute kidney injury) N17.9 Acute respiratory distress syndrome (ARDS) due to 2019 novel coronavirus U07.1; J80 Acute respiratory failure with hypoxia J96.01 Hypoxia R09.02 COVID-19 U07.1
[2021-05-30] MEDS: vancomycin 1,250 MG/250 ML PIGGYBACK 200 MG IV ×2 (12:40→22:28)
[2021-05-30] MEDS: magnesium hydroxide 30 mL UDC 15 ML PO (19:14)
[2021-05-30] MEDS: diphenhydrAMINE 50 mg Capsule PO (19:14)
[2021-05-31] VITALS (21 sets, daily range): BP systolic 128–151; BP diastolic 75–82; PULSE 83–110; RESP 18–24; TEMP 36.5–36.8; O2SAT 87–93
[2021-05-31] MEDS: ipratropium-albuterol 3 mL Neb INHALATION ×4 (02:49→21:15)
[2021-05-31 04:05] LABS: Basophils % 0.3 %; Eosinophils # 0.3 10^3/uL (0.0-0.8); Eosinophils % 1.7 %; Lymphocytes # 1.2 10^3/uL (0.8-4.8); Lymphocytes % 7.8 %; Mean Corpuscular Hemoglobin 29.8 pg (28.0-34.0); Mean Corpuscular Volume 96.3 fl (80-94); Mean Platelet Volume 10.4 fL (7.4-10.4); Monocytes % 6.2 %; Neutrophils # 12.78 10^3/uL (1.8-7.7); Neutrophils % 83.2 %; Nucleated Red Blood Cells % 0 %; Platelet Count 328 10^3/cmm (130-400); Red Blood Count 4.36 10^6/uL (4.1-5.3); Red Cell Distribution Width 14.6 % (12.1-15.1); White Blood Count 15.4 10^3/uL (4.0-10.0)
[2021-05-31 04:25] LABS: Blood Urea Nitrogen 20 mg/dL (8-23); Calcium 7.7 mg/dL (8.5-10.5); Carbon Dioxide 24 mmol/L (22-29); Chloride 102 mmol/L (98-107); Glucose 82 mg/dL (65-115); Osmolality Calculated 288 mOsm/kg (285-295); Sodium 138 mmol/L (136-145)
[2021-05-31 04:27] LABS: Anion Gap 16.3 (5-19); Potassium 4.3 mmol/L (3.5-5.1)
--- NOTE | 2021-05-31 06:42 | PC.NURSE ---
Shift Note Frequent safety and comfort rounds continue. Orders and/or nursing care completed as indicated. Patient monitored for response to intervention and treatment(s). Education provided includes Primaxin. Patient verbalized understanding. Patient not sleeping well. Patient able to turn from side to side without assistance and tolerating well. Patient denies pain this am. No distress observed. Will continue to monitor.
[2021-05-31] MEDS: enoxaparin 80 mg/0.8 mL Syringe SUBCUT ×2 (08:11→20:18)
[2021-05-31] MEDS: budesonide 0.5 mg/2 mL Neb INHALATION ×2 (08:36→21:15)
--- NOTE | 2021-05-31 09:42 | PC.SOCIAL ---
IMM Update Pg. 2 of IMM updated and reviewed with patient and family. Copy provided.
--- NOTE | 2021-05-31 10:29 | PM.PN ---
Subjective Subjective: Interval history: Patient is endorsing constipation, he was not able to sleep much last night, Benadryl was given which was ineffective for him This morning when entered the room he was saturating 84% on 55% 40 L, I increase his FiO2 to 75% with goal of saturation between 88-90, patient is motivated to get up and sit in a chair or walk in the hallway Vitals/I&O/Wt Last Vital Signs Temp 98.9 F 05/30/21 16:00 Pulse 96 05/31/21 08:48 Resp 18 05/31/21 08:48 BP 135/80 05/31/21 08:00 Pulse Ox 90 05/31/21 08:48 05/30/21 05/31/21 05/31/21 22:59 06:59 14:59 Intake Total 560 / 1582 710 / 2292 100 / 100 Output Total 220 / 220 Balance 560 / 1582 710 / 2292 -120 / -120 Weight last 48 hrs Weight 81.329 kg Weight 80.603 kg Physical Exam Narrative: EXAM NARRATIVE: Increase FiO2 to looks dehydrated Abdomen has sluggish bowel sounds Abdomen slightly distended Brother is at the bedside Patient is motivated to get out of bed to chair and ambulate EOMI, PERRLA No focal neurological deficit No use of respiratory rubber printing machine operator muscles Mild expiratory wheeze at the base of the lungs with rhonchi Appropriate mood and affect Urinary Catheter Management^: Combs: Cath Placed During This Visit: yes, but has since been removed by the nurse Reason for Continuing Indwelling Catheter: Acute Urinary Retention or Obstruction Date Urinary Catheter Removed: 05/29/21 Time Urinary Catheter Discontinued: 19:46 Data : 05/31/21 03:36 05/31/21 03:36 A&P Assessment and plan (1) Hypocalcemia: Status: Acute (2) Splenic infarct: Status: Acute (3) Intensive care (ICU) myopathy: Status: Acute (4) Superimposed infection: Status: Acute (5) JAREN (acute kidney injury): Status: Acute (6) Acute respiratory distress syndrome (ARDS) due to 2019 novel coronavirus: Status: Acute (7) Acute respiratory failure with hypoxia: Status: Acute (8) Hypoxia: Status: Acute (9) COVID-19: Status: Acute Additional A&P Information Persistent hypoxia Currently on heated high flow 75% 40 L Out of bed to chair Patient extubated 05/26/2021 to heated high flow Low-grade fever continue broad-spectrum antibiotics, will give him 1 dose of fluconazole, cultures negative to date, chest x-ray and CT scan showing worsening infiltrate PCP PCR negative Likely COVID 19 infection related febrile episodes Constipation: Patient does have bowel regimen, will give him enema and glycerin suppository Insomnia with anorexia Add mirtazapine, Ambien at night JAREN improved ICU myopathy: PT on daily basis Splenic infarct: Continue therapeutic dose of Lovenox Hypocalcemia: Currently on p.o. regimen Awaiting LTAC placement Full code Dysphagia level 3 diet recommended by speech therapist Attestations Medical Necessity Statement*: Awaiting LTAC placement, to work on prior Auth and then LTAC placement case finisher Time Spent in Patient Care: 16 - 35 minutes Coding Level of Care Code Acute Outcomes Analyst for Brock Barrera Diagnoses Hypocalcemia E83.51 Splenic infarct D73.5 Intensive care (ICU) myopathy G72.81 Superimposed infection B99.9 JAREN (acute kidney injury) N17.9 Acute respiratory distress syndrome (ARDS) due to 2019 novel coronavirus U07.1; J80 Acute respiratory failure with hypoxia J96.01 Hypoxia R09.02 COVID-19 U07.1
[2021-05-31] MEDS: bisacodyl 10 mg Supp PR (10:50)
--- NOTE | 2021-05-31 11:00 | ECG_ITS ---
[facility] Test Date: 2021-05-31 Pat Name: Bennie Chandra Department: Room: 105 Gender: Male Product Management Internship: : 1950 Requested By: Coby Spears Order Number: [id number] Reading MD: COBY HANNA Measurements Intervals Simon Rate: 91 P: 39 AL: 181 QRS: 9 QRSD: 83 T: -47 QT: 340 QTc: 419 Interpretive Statements SINUS RHYTHM WITH OCCASIONAL SUPRAVENTRICULAR PREMATURE COMPLEXES ST DEVIATION AND MODERATE T-WAVE ABNORMALITY, CONSIDER ANTEROLATERAL ISCHEMIA [-0.1+ mV T-WAVE IN V3-V6] Compared to ECG 05/27/2021 13:56:35 No significant changes Electronically Signed On 05-31-2021 17:48:28 INTERNET APPLICATION DEVELOPER by COBY HANNA [id number]
[2021-05-31] MEDS: vancomycin 1,250 MG/250 ML PIGGYBACK 200 MG IV ×2 (11:26→23:29)
[2021-05-31] MEDS: fluconazole premix 200 MG/100 ML PREMIX 100 MG IV (11:26)
--- NOTE | 2021-05-31 13:25 | PC.NURSE ---
Pt stated he is not a big eater he stated, i usually drink coffee and a pizza sometimes all day. He has been refusing to eat the ordered diet. but drinks his strawberry ensure.
[2021-05-31] MEDS: cetylpyridinium Lozenge 1 EACH MUCOUS MEM (13:34)
--- NOTE | 2021-05-31 14:18 | PC.NURSE ---
Pt had a sponge bath provided by his this morning. Pt got up to bedside commode and had a small BM after dulcolax supp.
--- NOTE | 2021-05-31 19:30 | PC.NURSE ---
Shift Note Frequent safety and comfort rounds continue. Orders and/or nursing care completed as indicated. Patient monitored for response to intervention and treatment(s). Education provided includes fluconazole,deep breathing and coughing exercises. Patient and/or client care representative verbalizes understanding. Will continue to monitor.
[2021-05-31] MEDS: zolpidem 5 mg Tablet PO (20:23)
[2021-05-31] MEDS: mirtazapine 15 mg Tablet 7.5 MG PO (20:30)
[2021-06-01] VITALS (18 sets, daily range): BP systolic 120–143; BP diastolic 68–85; PULSE 77–109; RESP 18–40; TEMP 36.6–38.1; O2SAT 81–94; BMI 25.7
[2021-06-01 03:33] LABS: ABG PCO2 46.4 mmHg (35-45); ABG PH Result 7.43 (7.35-7.45); Arterial Blood Gas Hematocrit 39.7 % (42-52); Base Excess ABG 5.6 mmol/L (-2.0-2.0); Blood Gas Allen Test Pos; Blood Gas Sample Site Radial, left; Blood Gas Sample Type Arterial; HCO3 ABG 30.8 mmol/L (22-26); Oxygen Device HAG; PO2 ABG 57.3 mmHg (80.0-100.0)
[2021-06-01] MEDS: enoxaparin 80 mg/0.8 mL Syringe SUBCUT ×2 (08:50→21:04)
[2021-06-01] MEDS: calcium carb-vit d 600mg/400unit 1 Tablet 1 EACH PO (08:51)
[2021-06-01] MEDS: budesonide 0.5 mg/2 mL Neb INHALATION ×2 (08:55→21:05)
[2021-06-01] MEDS: acetylcysteine 200 mg/mL SDV 4 mL 100 MG INHALATION ×3 (08:55→21:05)
[2021-06-01] MEDS: ipratropium-albuterol 3 mL Neb INHALATION ×3 (08:55→21:05)
[2021-06-01] MEDS: fluticasone nasal spray 16gm Btl 1 SPRAY NASAL (08:55)
[2021-06-01 09:27] LABS: Basophils # 0.1 10^3/uL (0.0-0.1); Basophils % 0.3 %; Eosinophils # 0.3 10^3/uL (0.0-0.8); Eosinophils % 1.8 %; Hematocrit 41.9 % (42.0-52.0); Hemoglobin 13.1 g/dL (11.7-16.6); Lymphocytes % 6.6 %; Mean Corpuscular HGB Conc 31.3 g/dL (30.0-36.0); Mean Corpuscular Hemoglobin 29.9 pg (28.0-34.0); Mean Corpuscular Volume 95.7 fl (80-94); Mean Platelet Volume 10.1 fL (7.4-10.4); Monocytes # 0.6 10^3/uL (0.2-0.9); Neutrophils # 13.06 10^3/uL (1.8-7.7); Neutrophils % 86.7 %; Nucleated Red Blood Cells % 0 %; Platelet Count 363 10^3/cmm (130-400); Red Blood Count 4.38 10^6/uL (4.1-5.3); Red Cell Distribution Width 14.5 % (12.1-15.1); White Blood Count 15.1 10^3/uL (4.0-10.0)
[2021-06-01] MEDS: fluconazole premix 200 MG/100 ML PREMIX 100 MG IV (10:00)
[2021-06-01 10:14] LABS: Anion Gap 15.5 (5-19); Blood Urea Nitrogen 17 mg/dL (8-23); Calcium 7.6 mg/dL (8.5-10.5); Carbon Dioxide 27 mmol/L (22-29); Chloride 101 mmol/L (98-107); Glucose 113 mg/dL (65-115); Osmolality Calculated 292 mOsm/kg (285-295); Potassium 3.5 mmol/L (3.5-5.1); Sodium 140 mmol/L (136-145)
[2021-06-01 10:21] LABS: Procalcitonin 0.11 ng/mL (0-0.5)
[2021-06-01] MEDS: vancomycin 1,250 MG/250 ML PIGGYBACK 200 MG IV (12:03)
--- NOTE | 2021-06-01 12:10 | PM.PN ---
Subjective Subjective: Interval history: No fever overnight Leukocytosis improving Currently on 45 L, 75% Heated high flow Patient is stating that he is feeling well Is noticing improvement in his appetite Vitals/I&O/Wt Last Vital Signs Temp 98.5 F 06/01/21 11:21 Pulse 88 06/01/21 11:21 Resp 30 H 06/01/21 11:21 BP 132/85 06/01/21 11:21 Pulse Ox 92 06/01/21 11:21 05/31/21 06/01/21 06/01/21 22:59 06:59 14:59 Intake Total 990 / 1913 550 / 2463 336 / 336 Output Total 1320 / 1540 250 / 1790 Balance -330 / 373 300 / 673 336 / 336 Weight last 48 hrs Weight 81.329 kg Weight 81.329 kg Physical Exam Narrative: EXAM NARRATIVE: Brother at the bedside Patient is in good spirits Endorsing improvement in his energy and appetite S1, S2 sinus rhythm however heart rate does go above 100 with this cough Abdomen soft Bowel sound present No signs of edema Looks euvolemic Appropriate mood and affect Dry cracked lips Nonfocal neuro exam Currently on heated high flow 45 L, 75% Urinary Catheter Management^: Combs: Cath Placed During This Visit: yes, but has since been removed by the nurse Reason for Continuing Indwelling Catheter: Acute Urinary Retention or Obstruction Date Urinary Catheter Removed: 05/29/21 Time Urinary Catheter Discontinued: 19:46 Data : 06/01/21 09:08 06/01/21 09:08 Micro: Microbiology 05/30/21 18:25 Gram Stain - Final Sputum - Expectorated Sputum Sputum Culture - Preliminary Yeast species A&P Assessment and plan (1) Hypocalcemia: Status: Acute (2) Splenic infarct: Status: Acute (3) Intensive care (ICU) myopathy: Status: Acute (4) Superimposed infection: Status: Acute (5) JAREN (acute kidney injury): Status: Acute (6) Acute respiratory distress syndrome (ARDS) due to 2019 novel coronavirus: Status: Acute (7) Hypoxia: Status: Acute (8) Acute respiratory failure with hypoxia: Status: Acute (9) COVID-19: Status: Acute Additional A&P Information Hypoxia related to COVID-19 75% 45 L heated high flow Patient is in good spirits endorsing improvement in his energy and appetite Start prior Auth tomorrow today there is federal holiday Discontinue broad-spectrum antibiotics and IV antifungals and transition to p.o. regimen Afebrile Continue dysphagia level 3 diet PT evaluation to be continued Full code Central line and Combs catheter removed Attestations Medical Necessity Statement*: Awaiting LTAC placement Time Spent in Patient Care: less than 15 minutes Coding Level of Care Code Acute Internal Combustion Engine Subassembler for Chg Fwd Diagnoses Hypocalcemia E83.51 Splenic infarct D73.5 Intensive care (ICU) myopathy G72.81 Superimposed infection B99.9 JAREN (acute kidney injury) N17.9 Acute respiratory distress syndrome (ARDS) due to 2019 novel coronavirus U07.1; J80 Hypoxia R09.02 Acute respiratory failure with hypoxia J96.01 COVID-19 U07.1
[2021-06-01] MEDS: acetaminophen 325 mg Tablet 650 MG PO (16:36)
[2021-06-01] MEDS: fluconazole premix 100 MG in empty flexible container 1 EACH 50 MG IV (20:51)
[2021-06-01] MEDS: cefTRIAXone 1,000 MG in sodium chloride 0.9% (plus) 50 ML 100 MG IV (20:59)
[2021-06-01] MEDS: nystatin 100,000 unit/mL UDC 5 mL 500000 UNIT PO (20:59)
[2021-06-01] MEDS: magnesium hydroxide 30 mL UDC 15 ML PO (21:00)
[2021-06-01] MEDS: zolpidem 5 mg Tablet PO (21:02)
[2021-06-01] MEDS: mirtazapine 15 mg Tablet 7.5 MG PO (21:03)
[2021-06-02] VITALS (15 sets, daily range): BP systolic 114–146; BP diastolic 74–83; PULSE 21–114; RESP 18–24; TEMP 36.6–37.1; O2SAT 90–97
[2021-06-02] MEDS: ipratropium-albuterol 3 mL Neb INHALATION ×4 (02:55→19:25)
[2021-06-02] MEDS: acetylcysteine 200 mg/mL SDV 4 mL 100 MG INHALATION ×4 (02:56→19:25)
[2021-06-02 03:29] LABS: Basophils % 0.3 %; Eosinophils # 0.5 10^3/uL (0.0-0.8); Eosinophils % 3.9 %; Hematocrit 41.4 % (42.0-52.0); Hemoglobin 12.8 g/dL (11.7-16.6); Lymphocytes # 1.1 10^3/uL (0.8-4.8); Lymphocytes % 8.6 %; Mean Corpuscular HGB Conc 30.9 g/dL (30.0-36.0); Mean Corpuscular Volume 97.2 fl (80-94); Mean Platelet Volume 10.4 fL (7.4-10.4); Monocytes # 0.6 10^3/uL (0.2-0.9); Monocytes % 4.6 %; Neutrophils # 10.63 10^3/uL (1.8-7.7); Neutrophils % 81.8 %; Nucleated Red Blood Cells % 0 %; Platelet Count 281 10^3/cmm (130-400); Red Blood Count 4.26 10^6/uL (4.1-5.3); Red Cell Distribution Width 14.6 % (12.1-15.1)
[2021-06-02 03:55] LABS: Anion Gap 12.5 (5-19); Blood Urea Nitrogen 19 mg/dL (8-23); Calcium 7.5 mg/dL (8.5-10.5); Carbon Dioxide 28 mmol/L (22-29); Chloride 104 mmol/L (98-107); Glucose 96 mg/dL (65-115); Osmolality Calculated 294 mOsm/kg (285-295); Potassium 3.5 mmol/L (3.5-5.1); Sodium 141 mmol/L (136-145)
--- NOTE | 2021-06-02 05:58 | PC.NURSE ---
Patient sleeping most of night. Denies pain at rounding checks. Will continue to monitor.
--- NOTE | 2021-06-02 06:00 | PC.NURSE ---
Shift Note Frequent safety and comfort rounds continue. Orders and/or nursing care completed as indicated. Patient monitored for response to intervention and treatment(s). Education provided includes IV antibiotics and uses. Patient and/or personnel representative verbalizes understanding however needs re-enforcement. Will continue to monitor.
[2021-06-02] MEDS: budesonide 0.5 mg/2 mL Neb INHALATION ×2 (08:05→19:25)
[2021-06-02] MEDS: enoxaparin 80 mg/0.8 mL Syringe SUBCUT (08:55)
[2021-06-02] MEDS: nystatin 100,000 unit/mL UDC 5 mL 500000 UNIT PO ×2 (08:55→18:38)
[2021-06-02] MEDS: sennosides-docusate Tablet 1 TAB PO (08:56)
[2021-06-02] MEDS: polyethylene glycol 3350 Pkt 17 gm PO (08:56)
[2021-06-02] MEDS: calcium carb-vit d 600mg/400unit 1 Tablet 1 EACH PO (09:00)
[2021-06-02] MEDS: fluticasone nasal spray 16gm Btl 1 SPRAY NASAL (09:14)
--- NOTE | 2021-06-02 10:12 | PC.SOCIAL ---
IMM Update pg 2 of IMM updated and reviewed w/ patient. Copy provided.
--- NOTE | 2021-06-02 10:24 | P.PN_ITS ---
Subjective Subjective: Interval history: Heated high flow 65%, 35 L, saturating 90% Dry cough Still feeling difficulty swallowing food started nystatin yesterday Patient cannot swallow tablets, switch back to IV antifungal and antibiotics Febrile episode yesterday noted Leukocytosis trending down Sputum culture growing yeast Vitals/I&O/Wt Last Vital Signs Temp 98 F 06/02/21 03:58 Pulse 101 H 06/02/21 08:16 Resp 22 H 06/02/21 08:16 BP 114/74 06/02/21 03:58 Pulse Ox 92 06/02/21 08:16 06/01/21 06/02/21 06/02/21 22:59 06:59 14:59 Intake Total 198 / 1124 100 / 1224 Output Total 1350 / 1350 1350 / 2700 Balance -1152 / -226 -1250 / -1476 Weight last 48 hrs Weight 79.832 kg Weight 81.329 kg Physical Exam Narrative: EXAM NARRATIVE: Patient resting comfortably in his bed Heated high flow 35 L, 65% Abdomen soft bowel sound present EOMI, PERRLA Rhonchi at the base of the lungs No conversational dyspnea Nonfocal neuro exam Slightly dehydrated Sinus tachycardia Urinary Catheter Management^: Combs: Cath Placed During This Visit: yes, but has since been removed by the nurse Reason for Continuing Indwelling Catheter: Acute Urinary Retention or Obstruction Date Urinary Catheter Removed: 05/29/21 Time Urinary Catheter Discontinued: 19:46 Data : 06/02/21 02:53 06/02/21 02:53 Micro: Microbiology 05/28/21 09:34 Blood Culture - Final Blood NO GROWTH AFTER 5 DAYS 05/28/21 04:38 Blood Culture - Final Blood NO GROWTH AFTER 5 DAYS 05/30/21 18:25 Gram Stain - Final Sputum - Expectorated Sputum Sputum Culture - Preliminary Yeast species A&P Assessment and plan (1) Splenic infarct: Status: Acute (2) Intensive care (ICU) myopathy: Status: Acute (3) Superimposed infection: Status: Acute (4) JAREN (acute kidney injury): Status: Acute (5) Acute respiratory distress syndrome (ARDS) due to 2019 novel coronavirus: Status: Acute (6) Acute respiratory failure with hypoxia: Status: Acute (7) Hypoxia: Status: Acute (8) COVID-19: Status: Acute (9) Hypocalcemia: Status: Acute Additional A&P Information COVID-19 related hypoxia: Wean off oxygen, currently on 35 L, 65%, Saturating 90% Continue therapeutic anticoagulating agent for splenic infarct Will give 500 mL LR bolus for sinus tachycardia Constipation: Glycerin suppository today Cannot swallow pills secondary to esophageal candidiasis, continue nystatin and fluconazole IV Will continue ceftriaxone empirically regimen patient is still spiking low-grade fevers overnight [facility], rehabilitation caseworker starting prior Auth Awaiting LTAC placement Poor p.o. intake Full code JAREN: Resolved For ICU related myopathy I will give him a trial of Ritalin For hypocalcemia currently on p.o. supplements Insomnia added mirtazapine Attestations Medical Necessity Statement*: Awaiting LTAC placement Time Spent in Patient Care: less than 15 minutes Coding Level of Care Code Acute Hydraulic Press Servicer for Brock Barrera Diagnoses Splenic infarct D73.5 Intensive care (ICU) myopathy G72.81 Superimposed infection B99.9 JAREN (acute kidney injury) N17.9 Acute respiratory distress syndrome (ARDS) due to 2019 novel coronavirus U07.1; J80 Acute respiratory failure with hypoxia J96.01 Hypoxia R09.02 COVID-19 U07.1 Hypocalcemia E83.51
[2021-06-02] MEDS: acetaminophen 325 mg Tablet 650 MG PO (10:51)
[2021-06-02] MEDS: methylphenidate 10 mg Tablet 5 MG PO (10:51)
[2021-06-02] MEDS: glycerin adult supp 1 EACH PR (12:17)
[2021-06-02] MEDS: lactated ringers 500 ML 999 ML IV (12:42)
--- NOTE | 2021-06-02 18:15 | PM.TDS ---
Transfer Summary Providers Date of Admission: 05/14/21 16:50 Date of Discharge: 06/02/21 Attending Provider at Admission: Coby Spears MD Attending Provider at Transfer: Coby Spears MD Primary Care Provider: [facility] Anticipated Date of Transfer: Anticipated date of transfer: 06/02/21 Receiving Facility & Provider: Receiving Provider: [] Receiving facility: [] Diagnoses at Discharge Discharge Diagnosis (1) Splenic infarct: Status: Acute (2) Intensive care (ICU) myopathy: Status: Acute (3) Superimposed infection: Status: Acute (4) JAREN (acute kidney injury): Status: Acute (5) Acute respiratory distress syndrome (ARDS) due to 2019 novel coronavirus: Status: Acute (6) Acute respiratory failure with hypoxia: Status: Acute (7) Hypoxia: Status: Acute (8) COVID-19: Status: Acute (9) Hypocalcemia: Status: Acute Reason for Visit Reason for Visit: SOB LOW O2 Hospital Course Hospital Course Spent 20 days in the hospital Patient was admitted on 05/14 for management of hypoxia related to COVID-19. Patient is nonvaccinated. His hypoxia gradually worsened, he transitioned from nasal cannula to heated high flow, he was transferred to the ICU on 05/19 for worsening hypoxia, intubated and sedated on 05/19, femoral line was placed on the same day as well, he responded very well to proning sessions, eventually got extubated on 05/26 to heated high flow, initially required 100% FiO2 which was gradually transitioned down to 60%. Please note after extubation he had 1 episode of emesis for which CT abdomen pelvis with contrast was requested which showed splenic infarct, his rhythm remained in sinus, he never showed any signs of atrial fibrillation, he was started on therapeutic dose of Lovenox, for his dysphagia speech therapy was requested who recommended level 3 advanced dysphagia diet, throughout his hospitalization he has been experiencing low-grade febrile episodes, in the ICU while he was intubated he was put on broad-spectrum antibiotics for pneumonitis, cultures remain negative, bronchoalveolar lavage was done which showed yeast infection with Trena albicans, blood cultures remain negative, sputum culture showing yeast species, PCP antigen bronchoalveolar lavage sample negative. Because of his dysphagia he still not able to swallow tablets for which I have kept him on ceftriaxone, IV fluconazole, nystatin swish for candidal oral rash. Patient suffered from ICU related myopathy, is endorsing improvement in his energy and appetite, for his constipation he responded well to glycerin suppository last bowel movement was 2 days ago. His p.o. intake is poor today I gave him 500 mL bolus to improve his sinus tachycardia. 05/30 CT/CT chest wo con [id number] IMPRESSION: 1. Scattered prominent mediastinal lymph nodes measuring up to 14 mm. 2. Coronary artery atherosclerotic calcifications. 3. Small left pleural effusion. 4. Cholelithiasis. 5. Splenic cyst. 6. Patchy bilateral airspace infiltrates likely reflecting an infectious process. Echo: CONCLUSIONS 1-Normal left ventricular cavity size. Normal left ventricular systolic function. No regional wall motion abnormalities. Left ventricular ejection fraction is estimated at 60 %. 2-No significant valve abnormalities. 3-There is no pericardial effusion. 4-Pulmonary artery systolic pressure is within normal limits. 5-Right atrial pressure is around 5 mm of mercury. 6-There are no prior echocardiogram studies to compare. Bronchoalveolar lavage done on 05/20 Specimens: Bronchoalveolar lavage was taken from right middle lobe and sent for microbiology cultures, fungal cultures, MOUSTAPHA preparation, PCP PCR. Cultures negative to date 05/27 CT/CT abdomen pelvis w con* [id number] IMPRESSION: 1. Wedge-shaped hypodensities in the spleen most likely represent acute infarcts. No visible abnormality identified within the splenic artery and branches. 2. Cholelithiasis. 3. Mild diverticulosis of the colon. 4. Multilobar pneumonia with pleural flui 05/19 CT/CT angio chest PE protcl [id number] IMPRESSION: 1. Extensive, bilateral areas of ground-glass opacification in both lungs lungs. The severity of the ground-glass opacification has decreased, however is more diffuse compared with the previous study. Findings are suspicious for atypical pneumonia, including viral organisms. There is also interval development of bilateral lower lobe alveolar airspace disease with air bronchograms and patchy alveolar airspace disease in the right upper lobe, a superimposed bacterial pneumonia cannot be ruled out. Recommend followup chest imaging to insure resolution of these findings. 2. No evidence for pulmonary embolism. 3. There is an endotracheal tube with the tip 3.3 cm above the rell. 4. There is an enteric tube with the tip in the descending duodenum. 5. Cholelithiasis. 6. Incidental/nonacute findings are listed in the report. Current medications Ceftriaxone 1 g daily empirical coverage IV fluconazole Nystatin Budesonide 0.5 mg twice daily Glycerin suppository Mirtazapine 7.5mg at bedtime Lovenox 80 mg every 12 hours Physical Exam Narrative: EXAM NARRATIVE: Patient resting comfortably in his bed Heated high flow 35 L, 60% Abdomen soft bowel sound present EOMI, PERRLA Rhonchi at the base of the lungs No conversational dyspnea Nonfocal neuro exam Slightly dehydrated Sinus tachycardia Urinary Catheter Management^: Combs: Cath Placed During This Visit: yes, but has since been removed by the nurse Reason for Continuing Indwelling Catheter: Acute Urinary Retention or Obstruction Date Urinary Catheter Removed: 05/29/21 Time Urinary Catheter Discontinued: 19:46 TS Data Data Completed and Pending: Completed Studies During Hospitalization Category Date Time Status CT abdomen pelvis w con* [id number] Rout ine Cat Scan 05/27/21 18:[address] angio chest PE protcl [id number] Rout ine Cat Scan 05/19/21 12:[address] angio chest PE protcl [id number] Stat Cat Scan 05/14/21 20:[address] chest wo con 7 1250 Routine Cat Scan 05/30/21 08:[address] head wo con* 7 0450 Routine Cat Scan 05/19/21 12:38 Completed CXRP [XR chest 1V portable [id number]] S tat Exams 05/19/21 10:28 Completed CXRP [XR chest 1V portable [id number]] S tat Exams 05/19/21 12:24 Completed XR KUB portable 7 [id number] Stat Exams 05/27/21 12:22 Completed XR chest 1V juan manuel ble [id number] AM LABS Exams 05/30/21 04:00 Completed XR chest 1V juan manuel ble [id number] Routine Exams 05/17/21 07:27 Completed XR chest 1V juan manuel ble [id number] Routine Exams 05/20/21 07:00 Completed XR chest 1V juan manuel ble [id number] Routine Exams 05/21/21 07:00 Completed XR chest 1V juan manuel ble [id number] Routine Exams 05/22/21 07:00 Completed XR chest 1V juan manuel ble [id number] Routine Exams 05/23/21 07:00 Completed XR chest 1V juan manuel ble [id number] Routine Exams 05/25/21 14:28 Completed XR chest 1V juan manuel ble 61661 Routine Exams 05/26/21 08:57 Completed XR chest 1V juan manuel ble [id number] Stat Exams 05/14/21 16:05 Completed CV. echo limited [id number] Routine Ultrasound 05/27/21 12:26 Completed Pending at discharge Category Date Time Status Clostridioides Di fficile PCR Routin e Lab 05/27/21 15:36 Uncollected Complete Blood Co unt w/Auto AM LABS Lab 06/03/21 04:00 Ordered Fungal Culture no t HR/SK/BL Routine Lab 05/20/21 17:50 Received Sputum Culture an d Gram Stain Routi ne Lab 05/30/21 18:25 Results Labs from last 24 hours 06/02/21 06/02/21 02:53 02:53 WBC 13.0 H RBC 4.26 Hgb 12.8 Hct 41.4 L MCV 97.2 H MCH 30.0 MCHC 30.9 RDW 14.6 Plt Count 281 MPV 10.4 Neut % (Auto) 81.8 Lymph % (Auto) 8.6 [place] % (Auto) 4.6 Eos % (Auto) 3.9 Baso % (Auto) 0.3 Neut # (Auto) 10.63 H Lymph # (Auto) 1.1 [place] # (Auto) 0.6 Eos # (Auto) 0.5 Baso # (Auto) 0.0 Nucleated RBC % (a uto) 0 Nucleated RBCs # 0.0 Sodium 141 Potassium 3.5 Chloride 104 Carbon Dioxide 28 Anion Gap 12.5 BUN 19 Creatinine 0.5 L GFR Calculation Not Reportable Glucose 96 Calculated Osmolal ity 294 Calcium 7.5 L Vitals: Last Vital Signs Temp 98.8 F 06/02/21 12:00 Pulse 99 06/02/21 17:00 Resp 20 H 06/02/21 17:00 BP 114/74 06/02/21 12:00 Pulse Ox 91 06/02/21 17:00 TS Medications Medications Home Medications Vitamin B-12 Gummies 1 tab PO DAILY 05/14/21 [History Confirmed 05/14/21] ibuprofen [Advil] 600 mg PO Q6H PRN 05/14/21 [History Confirmed 05/14/21] Active Medications Acetaminophen (Acetaminophen 325 Mg Tablet) 650 mg PO Q6H PRN PRN Reason: Mild/Mod Pain Or Temp >/= 101 Last Admin: 06/02/21 10:51 Dose: 650 mg Documented by: Acetylcysteine (Acetylcysteine 200 Mg/Ml Sdv 4 Ml) 100 mg INHALATION Q6H.RESPIRATORY SEVERIANO Last Admin: 06/02/21 17:36 Dose: 100 mg Documented by: Albuterol/Ipratropium (Ipratropium-Albuterol 3 Ml Neb) 3 ml INHALATION Q6H.RESPIRATORY SEVERIANO Last Admin: 06/02/21 17:36 Dose: 3 ml Documented by: Benzocaine (Cetylpyridinium Lozenge) 1 each MUCOUS MEM Q2H PRN PRN Reason: SORE THROAT Last Admin: 05/31/21 13:34 Dose: 1 each Documented by: Budesonide (Budesonide 0.5 Mg/2 Ml Neb) 0.5 mg INHALATION BID.RESPIRATORY SEVERIANO Last Admin: 06/02/21 08:05 Dose: 0.5 mg Documented by: Calcium Carbonate (Calcium Carb-Vit D 600mg/400unit 1 Tablet) 1 each PO DAILY SEVERIANO Last Admin: 06/02/21 09:00 Dose: 1 each Documented by: Enoxaparin Sodium (Enoxaparin 80 Mg/0.8 Ml Syringe) 80 mg SUBCUT Q12H SEVERIANO Last Admin: 06/02/21 08:55 Dose: 80 mg Documented by: Fluticasone Propionate (Fluticasone Nasal [place] 16gm Btl) 1 spray NASAL DAILY [facility] Last Admin: 06/02/21 09:14 Dose: 1 spray Documented by: Glycerin (Glycerin Adult Supp) 1 each OK DAILY PRN PRN Reason: CONSTIPATION Fluconazole 100 mg/ N/A 50 mls @ 50 mls/hr IV Q24H [facility] Last Infusion: 06/02/21 05:58 Dose: Infused Documented by: Ceftriaxone Sodium 1,000 mg/ (Sodium Chloride) 50 mls @ 100 mls/hr IV Q24H [facility]; Protocol Last Infusion: 06/02/21 05:57 Dose: Infused Documented by: Magnesium Hydroxide (Magnesium Hydroxide 30 Ml Udc) 15 ml PO BEDTIME SEVERIANO Last Admin: 06/01/21 21:00 Dose: 15 ml Documented by: Mirtazapine (Mirtazapine 15 Mg Tablet) 7.5 mg PO BEDTIME SEVERIANO Last Admin: 06/01/21 21:03 Dose: 7.5 mg Documented by: Nystatin (Nystatin 100,000 Unit/Ml Udc 5 Ml) 500,000 unit PO QID SEVERIANO Last Admin: 06/02/21 15:18 Dose: Not Given Documented by: Ondansetron HCl (Ondansetron 2 Mg/Ml Sdv 2 Ml) 4 mg IVP Q8H PRN PRN Reason: NAUSEA AND VOMITING Last Admin: 05/29/21 21:08 Dose: 4 mg Documented by: Polyethylene Glycol (Polyethylene Glycol 3350 Pkt 17 Gm) 17 gm PO DAILY [facility] Last Admin: 06/02/21 08:56 Dose: 17 gm Documented by: Senna/Docusate Sodium (Sennosides-Docusate Tablet) 1 tab PO DAILY [facility] Last Admin: 06/02/21 08:56 Dose: 1 tab Documented by: Zolpidem Tartrate (Zolpidem 5 Mg Tablet) 5 mg PO BEDTIME [facility] Last Admin: 06/01/21 21:02 Dose: 5 mg Documented by: Discharge Plan Discharge Patient Disposition: Home Condition: Stable Prescriptions: Discontinued Advil 200 mg Tablet 600 mg PO Q6H PRN (Reason: Pain) RF: 0 Vitamin B-12 Gummies 1 tab PO DAILY RF: 0 Discharge Orders: Transfer Out of Facility (Order); Ordered 06/02/21 Ordered By: Coby Spears Referrals: [facility] [Primary Care Provider] - Patient Instructions: Opioid Safety Transfer Attestations Time Spent in Transfer Care*: less than 30 min Quality Metrics Clinical Quality Measures: During this hospital stay, did patient experience: None Coding Level of Care Code Acute Supervisor [place] for Chg Fwd Diagnoses Splenic infarct D73.5 Intensive care (ICU) myopathy G72.81 Superimposed infection B99.9 JAREN (acute kidney injury) N17.9 Acute respiratory distress syndrome (ARDS) due to 2019 novel coronavirus U07.1; J80 Acute respiratory failure with hypoxia J96.01 Hypoxia R09.02 COVID-19 U07.1 Hypocalcemia E83.51
--- NOTE | 2021-06-02 18:30 | PC.NURSE ---
RT applied BIPAP prior to ambulance arrival and transport.
--- NOTE | 2021-06-02 18:30 | PC.NURSE ---
Report called to [facility]om[facility] RN provided report to this pt.
[2021-06-02] MEDS: morphine 4 mg/mL SDV 1 mL 2 MG IVP (18:53)
--- NOTE | 2021-06-02 19:15 | PC.NURSE ---
ambulance personnel arrived Notified RT collin to assist the ambulance personnel on pt's oxygen device. pt is transferred via ambulance stretcher and on nonrebreather mask.
== END 2021-06-02 19:45 | DRG 207 ==
LOC: ER 18:14 → MEDSURG 18:47 → ICU 05-19 09:53 → CSU 05-28 17:31
PROVIDERS: Internal Medicine; Internal Medicine Pulmonary Disease; Admitting Provider Internal Medicine; Emergency Provider Family Medicine; Visit Provider Internal Medicine
DX: U07.1 COVID-19 (principal); J12.82 Pneumonia due to coronavirus disease 2019; J80 Acute respiratory distress syndrome; B37.1 Pulmonary candidiasis; G72.81 Critical illness myopathy; N17.9 Acute kidney failure, unspecified; D64.9 Anemia, unspecified; M19.90 Unspecified osteoarthritis, unspecified site; I10 Essential (primary) hypertension; E78.5 Hyperlipidemia, unspecified; Z87.891 Personal history of nicotine dependence; M54.9 Dorsalgia, unspecified; I95.2 Hypotension due to drugs; T42.75XA Adverse effect of unspecified antiepileptic and sedative-hypnotic drugs, initial encounter; R13.10 Dysphagia, unspecified; D73.5 Infarction of spleen; E87.6 Hypokalemia; B96.89 Other specified bacterial agents as the cause of diseases classified elsewhere
CPT/HCPCS: 36415; 36416; 36592; 36600; 70450; 71045; 71250; 71275; 74018; 74177; 80048; 80051; 80053; 80202; 81003; 82306; 82310; 82330; 82550; 82803; 82805; 82962; 83605; 83615; 83735; 83880; 83970; 84100; 84145; 84443; 84484; 85025; 85378; 86140; 87040; 87070; 87102; 87106; 87205; 87206; 87210; 87641; 87798; 92523; 92524; 92610; 93005; 93308; 94002; 94003; 94640; 94660; 94664; 94799; 96365; 96372; 97110; 97116; 97163; 97165; 97530; 97535; 99285; J0610; J0696; J0743; J1100; J1170; J1450; J1650; J1885; J1940; J2060; J2250; J2270; J2405; J2704; J3010; J3370; J3490; J7030; J7040; J7512; J7608; J7626; J7799; Q0163; Q9967

== ENCOUNTER → 2021-10-19 13:01 | Outpatient (BNVA) | payer OTHER, SELFPAY | PROVIDERS: PCP Emergency Medicine Emergency Medical Services; Visit Provider Internal Medicine Critical Care Medicine | DX: R06.02 Shortness of breath (principal); U09.9 Post COVID-19 condition, unspecified | CPT/HCPCS: 71046; 99214 ==

== ENCOUNTER → 2021-12-18 10:14 | Outpatient (BNVA) | payer OTHER, SELFPAY | PROVIDERS: PCP Emergency Medicine Emergency Medical Services; Visit Provider Internal Medicine Critical Care Medicine | DX: J45.909 Unspecified asthma, uncomplicated (principal); Z86.16 Personal history of COVID-19 | CPT/HCPCS: 36415; 82785; 85025; 86003; 99214 ==

== ENCOUNTER 2022-01-07 13:37 | Outpatient (CLI) | payer OTHER, SELFPAY ==
--- NOTE | 2022-01-07 14:30 | PFTS_ITS ---
Date of Study:01/07/22 Date of Dictation: MECHANICS: Forced vital capacity (FVC) is . Forced expiratory volume in one second (FEV1) is . FEV1/FVC is . FLOW VOLUME LOOP: . LUNG VOLUMES: Total lung capacity (TLC) is . Residual volume (RV) is . DIFFUSING CAPACITY FOR CARBON MONOXIDE: . INTERPRETATION: The pulmonary function tests are . mechanics and lung volumes. Gas exchange (DLCO) is . MTDD
== END 2022-01-07 13:38 | disposition home or self-care (01) ==
LOC: RT 13:38
PROVIDERS: PCP Emergency Medicine Emergency Medical Services; Visit Provider Internal Medicine Critical Care Medicine
DX: U07.1 COVID-19 (principal)
CPT/HCPCS: 94060; 94726; 94729

== ENCOUNTER → 2022-04-29 08:52 | Outpatient (BNVA) | payer OTHER, SELFPAY | PROVIDERS: PCP Emergency Medicine Emergency Medical Services; Visit Provider Internal Medicine Pulmonary Disease | DX: J98.4 Other disorders of lung (principal); R06.09 Other forms of dyspnea; J45.909 Unspecified asthma, uncomplicated; Z86.16 Personal history of COVID-19 | CPT/HCPCS: 36415; 84182; 85651; 86140; 86225; 86235; 99214 ==

== ENCOUNTER 2022-10-19 08:10 | Outpatient (CLI) | payer OTHER, SELFPAY ==
--- NOTE | 2022-10-19 08:24 | XRR_ITS ---
PROCEDURE INFORMATION: Exam: XR Chest Exam date and time: 10/19/2022 9:20 AM Age: 72 years old Clinical indication: Shortness of breath; Additional info: Coronary artery disease, shortness of breath, diabetes TECHNIQUE: Imaging protocol: Radiologic exam of the chest. Views: 2 views. PA and Lateral COMPARISON: CR XR chest 2V* [id number] 10/19/2021 1:59 PM FINDINGS: Lungs: Unchanged mildly elevated right hemidiaphragm, suggestive of hemidiaphragmatic eventration. Age-related interstitial prominence is seen in the lungs. Some linear scarring in the lung bases. No confluent airspace opacities in the lungs. Pleural spaces: No pleural effusion. No pneumothorax. Heart/Mediastinum: Normal heart size. There is a mildly tortuous thoracic aorta. Midline trachea. Bones/joints: No acute osseous abnormalities seen. Mild shoulder degenerative changes are seen. XR/XR chest 2V* [id number] IMPRESSION: No confluent infiltrates in the lungs.
--- NOTE | 2022-10-19 08:25 | USCV_ITS ---
Bennie Chandra Age: 72 Gender: M : 1950 Exam Date: 10/19/2022 08:31 Ordering Phys: Alec Guzman Technologist: Jen Watkins Exam Location: [facility] [place] Indication: sob BP: 140 / 70 HR: 46 Rhythm: Sinus Technical Quality: Adequate MEASUREMENTS (Male / Female) Normal Values 2D ECHO LV Diastolic Diameter PLAX 4.8 cm 4.2 - 5.9 / 3.9 - 5.3 cm LV Systolic Diameter PLAX 3.5 cm LV Chamber Size 3.7 cm IVS Diastolic Thickness 1.1 cm 0.6 - 1.0 / 0.6 - 0.9 cm IVS Systolic Thickness 1.2 cm LVPW Diastolic Thickness 1.4 cm 0.6 - 1.0 / 0.6 - 0.9 cm LVPW Systolic Thickness 1.8 cm RV Chamber Size 3.6 cm LVOT Diameter 1.9 cm LV Ejection Fraction 2D Teich 53.3 % LV Ejection Fraction MOD 2C 52.2 % LV Ejection Fraction 2C AL 55.0 % LA Diameter 3.7 cm LA Width 2.9 cm LA Height 3.5 cm RA Width 4.4 cm RA Height 4.1 cm Aorta at Sinotubular Diameter 3.8 cm M-MODE Aortic Annulus Diameter 4.0 cm LA Ao Ratio MM 1.0 MV E Point Septal Separation 0.9 cm DOPPLER AV Peak Velocity 131.0 cm/s LVOT Peak Velocity 111.0 cm/s AV Area Cont Eq vti 2.5 cm squared AV Area Cont Eq pk 2.5 cm squared MV Area PHT 2.5 cm squared Mitral E to A Ratio 1.5 MV E' Velocity 43.0 cm/s Mitral E to MV E' Ratio 6.0 Mitral E to LV E' Lateral Ratio 5.5 Mitral E to LV E' Septal Ratio 6.5 TR Peak Velocity 247.0 cm/s TR Peak Gradient 24.4 mmHg TR Mean Velocity 187.7 cm/s TR Mean Gradient 15.7 mmHg TR Velocity Time Integral 84.2 cm TV Peak E Velocity 68.0 cm/s Right Atrial Pressure 3.0 mmHg Pulmonary Artery Systolic Pressu 27.4 mmHg RV Acceleration Time 0.1 s RV Ejection Time 0.4 s RV AcT/ET 0.3 FINDINGS Left Ventricle Left ventricle is normal in size. LV systolic function is normal with EF of 55 to 60%. No regional wall motion abnormalities are seen. Right Ventricle Normal in size and function Right Atrium Normal in size Left Atrium Normal in size Mitral Valve Structurally normal mitral valve. Trace mitral regurgitation. Aortic Valve Structurally normal aortic valve. No significant stenosis or regurgitation. Tricuspid Valve Mild tricuspid regurgitation. Pulmonary artery systolic pressure is normal. Pulmonic Valve Not well-visualized Pericardium Normal Aorta Dilated IVC Appears to be normal CONCLUSIONS LV systolic function is normal with EF of 55 to 60%. Mild tricuspid regurgitation Trace mitral regurgitation Ascending aorta is dilated. Compared to prior echocardiogram from 2021, no significant changes are seen Zack Hodges MD (Electronically Signed) Final Date: 23 October 2022 14:23 S
[2022-10-19 09:37] VITALS: PULSE 53; RESP 18; O2SAT 99
[2022-10-19] MEDS: albuterol 2.5 mg/3 mL Neb INHALATION (09:37)
[2022-10-19 09:42] VITALS: PULSE 54
[2022-10-19 10:01] LABS: Alkaline Phosphatase 77 U/L (40-130); Blood Urea Nitrogen 19 mg/dL (8-23); Calcium 8.7 mg/dL (8.5-10.5); Carbon Dioxide 25 mmol/L (22-29); Chloride 102 mmol/L (98-107); Globulin 3.2 g/dL (1.3-4.6); Glucose 82 mg/dL (65-115); Osmolality Calculated 285 mOsm/kg (285-295); Sodium 137 mmol/L (136-145); Total Bilirubin 0.4 mg/dL (0.15-1.2); Total Protein 7.2 g/dL (6.6-8.7)
[2022-10-19 10:21] LABS: Alanine Aminotransferase 13 U/L (0-41); Anion Gap 14.4 (5-19); Aspartate Amino Transferase 23 U/L (0-40); Potassium 4.4 mmol/L (3.5-5.1)
[2022-10-19 10:29] LABS: Add Urine Microscopic? YES; Bilirubin Urine Neg (Negative); Blood Urine 2+ (Negative); Glucose Urine UA Norm (Normal); Ketones Urine Negative (Negative); Leukocyte Esterase Urine Negative (Negative); Nitrate Urine Negative (Negative); Protein Urine Neg (Negative); RBC Urine 0-4 /hpf (0-2); Urine Appearance Clear (CLEAR); Urine Color Yellow (Yellow); Urobilinogen Urine Norm (Negative); WBC Urine 0-4 /hpf (0-5); pH Urine 5 (5-7)
[2022-10-19 10:30] LABS: Add Urine Culture? No; Bacteria Urine TRACE /hpf; Mucus Urine TRACE /hpf
== END 2022-10-19 08:11 | disposition home or self-care (01) ==
LOC: RAD 08:16
PROVIDERS: PCP Emergency Medicine Emergency Medical Services; Visit Provider Chiropractor
DX: I25.10 Atherosclerotic heart disease of native coronary artery without angina pectoris (principal); R06.02 Shortness of breath; E11.9 Type 2 diabetes mellitus without complications; I07.1 Rheumatic tricuspid insufficiency
CPT/HCPCS: 36415; 71046; 80053; 81001; 93306; 94060; J7613

== ENCOUNTER → 2023-02-14 14:51 | Outpatient (BNVA) | payer OTHER, SELFPAY | PROVIDERS: PCP Emergency Medicine Emergency Medical Services; Visit Provider Podiatrist Foot & Ankle Surgery | DX: B35.1 Tinea unguium (principal); L60.8 Other nail disorders; L60.3 Nail dystrophy | CPT/HCPCS: 99203 ==